=== PATIENT | female | born 1980 | race Caucasian/White ===

== ENCOUNTER 2018-03-10 19:31 | Emergency (ER) | payer MEDICAID, SELFPAY ==
[2018-03-10 19:37] VITALS: BP 90/64; PULSE 70; RESP 18; TEMP 36.4; O2SAT 100
--- NOTE | 2018-03-10 19:37 | DI.REPORT_ITS ---
SYMPTOM/DIAGNOSIS: S/P FALL, R/O ACUTE FRACTURE. LEFT WRIST: Three views. There is an osseous density on the dorsum of the wrist suspicious for a triquetral fracture. Overlying soft tissue swelling is noted. There is a question of a lucency seen through the waist of the scaphoid on the oblique view and a nondisplaced fracture cannot be excluded. Scaphoid view may be obtained for further evaluation. IMPRESSION: 1. Findings suspicious for a triquetral fracture. 2. Possible fracture through the waist of the scaphoid. Scaphoid view may br obtained for further evaluation.
--- NOTE | 2018-03-10 19:57 | ED.GENADUL ---
Disposition Clinical Impression: Triquetral fracture, Scaphoid fracture Disposition: HOME Condition: Stable Instructions: Wrist Fracture in Adults (ED), Scaphoid Fracture (ED) Additional Instructions: Rest, ice, elevate left wrist is much possible. Take tylenol or motrin as needed and directed for pain. Take the oxycodone for pain not relieved with Tylenol or Motrin. Follow-up with orthopedics in 2 weeks for reevaluation and a repeat x-ray. Return to the emergency department any worsening or new concerning symptoms. Prescriptions: Codeine/APAP 30 MG/300 MG [Tylenol W/Codeine #3 Tablet] 1 tab PO Q6H PRN #5 tab PRN Reason: Pain Referrals: Drew Patel MD [ [facility] STAFF PHYSICIAN] - Medical Decision Making - Radiology Data Radiology results: report reviewed, image reviewed Left wrist x-ray: 1. Findings highly suspicious for dorsal triquetral fracture. 2. Possible transverse lucency through the scaphoid wrist on the oblique view. - Medical Decision Making 37 old female presents with left wrist pain after fall onto left wrist from standing height. Left snuffbox tenderness with dorsal proximal hand edema and tenderness. Dose of Tylenol given Patient declined test and denies chance of . Left wrist x-ray notes dorsal triquetral fracture and possible scaphoid fracture. X-rays are reviewed with Dr. Patel and he sees the triquetral fracture but is questioning the scaphoid fracture. As patient has left snuffbox tenderness, will place a thumb spica splint and have her follow-up with orthopedics in 2 weeks for repeat x-ray. She placed on care management list to arrange for follow-up appointment. Patient has a history of previous IV drug use but states she has been clean for 10 years. She states she does occasionally take a narcotic for pain as needed. Patient is requesting something shorter than Tylenol. Dose of oxycodone given here and 5 tabs of Tylenol with codeine given for home. History of Present Illness - General Chief complaint: Orthopedic Stated complaint: BROKEN LEFT WRIST? Time Seen by Provider: 03/10/18 19:37 Source: patient Mode of arrival: ambulatory Limitations: no limitations - History of Present Illness Initial comments: Patient is a 37-year-old female presents with left wrist pain after fall from standing height onto her left wrist. She did not take anything for pain. She denies any other injury. - Related Data Codeine/APAP 30 MG/300 MG [Tylenol W/Codeine #3 Tablet] 1 tab PO Q6H PRN #5 tab 03/10/18 Allergies Allergy/AdvReac Type Severity Reaction Status Date / Time amoxicillin trihydrate Allergy Severe Hives Unverified 03/10/18 19:39 [From Augmentin] sulfamethoxazole Allergy Severe Hives Unverified 03/10/18 19:39 [From Bactrim] tree nut Allergy Anaphylaxsi Unverified 03/10/18 19:39 s azithromycin AdvReac Intermediate Stomach Unverified 03/10/18 19:39 cramps Oral contrast Allergy Swelling/Ed Uncoded 03/10/18 19:39 malou Review of Systems Constitutional: denies: chills, fever Eyes: denies: eye pain ENT: denies: ear pain, dental pain Respiratory: denies: cough, shortness of breath Cardiovascular: denies: chest pain, dyspnea on exertion Gastrointestinal: denies: abdominal pain, nausea, vomiting Genitourinary: denies: urgency, dysuria, frequency Musculoskeletal: other (L wrist injury and pain). denies: back pain Skin: denies: rash, lesions Neurological: denies: headache, weakness, numbness Past Medical History - Past Medical History Medical history: DVT Previous IV drug use Surgical history: , other (Bose Rods back surgery) Family history: diabetes - Social History Smoking status: current everyday smoker Alcohol use: heavy (Next 3 drinks during the week and 6-8 drinks on the weekends. Last drink 3 days ago) Drug use: none General Exam - General Limitations: no limitations General appearance: alert, in no apparent distress - Eye Eye exam: Present: EOMI - Respiratory Respiratory exam: Absent: respiratory distress - Cardiovascular Cardiovascular Exam: Present: regular rate - Extremities Exam Extremities exam: Present: normal capillary refill, other (Mild edema, tenderness to palpation of dorsal of proximal hand near wrist. Left snuffbox tenderness. Limited range of motion of left wrist due to pain. Left radial pulse intact.) - Neurological Exam Neurological exam: Present: alert, oriented X3 - Psychiatric Psychiatric exam: Present: normal affect - Skin Skin exam: Present: warm, dry, intact Course Vital Signs - 24 hr 03/10/18 19:37 Temperature 97.5 F L Pulse 70 Respiratory 18 Rate Blood Pressure 90/64 Pulse Oximetry 100
[2018-03-10] MEDS: Acetaminophen 325 MG TAB 650 MG PO (20:02)
--- NOTE | 2018-03-10 20:12 | DI.VRAD_ITS ---
EXAM: XR Left Wrist Complete, 3 or More Views CLINICAL HISTORY: 37 years old, female; Pain; Wrist; Left; Patient HX: Per pt: Fell out of truck onto pavement TECHNIQUE: Frontal, lateral and oblique views of the left wrist. COMPARISON: CR - RIGHT HAND COMPLETE 2015-04-30 09:59 FINDINGS: Bones/joints: Ossification measuring 8 mm x 4 mm at the dorsal surface of the carpus on the lateral examination highly suspicious for triquetral fracture. Questionable transverse lucency through the waist of the scaphoid on the oblique view. A nondisplaced fracture the scaphoid is possible. If there are clinical concerns for a scaphoid fracture then dedicated scaphoid view is suggested. No dislocation. Soft tissues: Swelling of the dorsal wrist soft tissues. No radiopaque foreign body. IMPRESSION: 1. Findings highly suspicious for dorsal triquetral fracture. 2. Possible transverse lucency through the scaphoid waist on the oblique view. If there is a clinical concern for scaphoid fracture then dedicated scaphoid view is recommended. Dictated and Authenticated by: Marco Mares MD. Ordering:YAMIL HUTCHISON MD
[2018-03-10] MEDS: oxyCODONE 5 MG TAB PO (20:40)
== END 2018-03-10 21:07 | disposition home or self-care (01) ==
PROVIDERS: Emergency Provider Physician Assistant; PCP Family Medicine
DX: S62.115A Nondisplaced fracture of triquetrum [cuneiform] bone, left wrist, initial encounter for closed fracture (principal); S62.002A Unspecified fracture of navicular [scaphoid] bone of left wrist, initial encounter for closed fracture; W01.0XXA Fall on same level from slipping, tripping and stumbling without subsequent striking against object, initial encounter; F19.21 Other psychoactive substance dependence, in remission
CPT/HCPCS: 29125; 99284; 73110; 99283; L3807

== ENCOUNTER → 2018-03-27 10:53 | Outpatient (CLI) | payer MEDICAID, SELFPAY ==
--- NOTE | 2018-03-27 10:50 | DI.REPORT_ITS ---
SYMPTOMS/DIAGNOSIS: FELL LEFT WRIST: Comparison is made with 4Aug18. Four views including navicular view were performed. There is no evidence of a scaphoid fracture. A small bony fragment is visible on the lateral view, fracture from the triquetrum. It is better seen on the previous exam. IMPRESSION: The triquetral fracture is not well seen. There is no evidence of scaphoid fracture.
== END ==
PROVIDERS: PCP Family Medicine; Visit Provider Physician Assistant
DX: S62.115D Nondisplaced fracture of triquetrum [cuneiform] bone, left wrist, subsequent encounter for fracture with routine healing (principal); W01.0XXD Fall on same level from slipping, tripping and stumbling without subsequent striking against object, subsequent encounter
CPT/HCPCS: 73110

== ENCOUNTER 2018-05-07 17:54 | Outpatient (REF) | payer MEDICAID, SELFPAY ==
[2018-05-07 19:26] LABS: Bilirubin Negative (Negative); Blood Large (Negative); Clarity Sl Cloudy; Glucose Negative (Negative); Ketones 15 mg/dL (Negative); Leukocyte Esterase Large (Negative); Nitrite Negative (Negative); Specific Gravity 1.025 (1.005-1.025); Urobilinogen 0.2 EU/dL (Up TO 0.2)
[2018-05-07 20:14] LABS: Bacteria Many HPF (Negative); C & S Indicated? Yes; Casts Negative LPF (Negative); Crystals Negative HPF (Negative); Epithelial Cells Negative HPF (Negative); Mucus Negative (Negative); Other Cells Negative (Negative); RBC >50 (0-2); WBC >50 HPF (0-5)
== END 2018-05-07 18:14 ==
LOC: NCHCN 17:54
PROVIDERS: Family Medicine; PCP Nurse Practitioner; Visit Provider Nurse Practitioner
DX: R30.0 Dysuria (principal)
CPT/HCPCS: 87077; 81003; 81015; 87086; 87186

== ENCOUNTER 2018-08-20 07:11 | Emergency (ER) | payer SELFPAY ==
[2018-08-20 07:19] VITALS: BP 121/62; PULSE 71; RESP 14; TEMP 36.6; O2SAT 99
--- NOTE | 2018-08-20 07:27 | DI.RAD_ITS ---
SYMPTOMS/DIAGNOSIS: PAIN 2ND MCP JOINT, S/P TRAUMA LEFT HAND: Comparison is made with left wrist dated . There is deformity of the triquetrum related to an old fracture. No acute fracture or dislocation is seen. There are mild degenerative changes. IMPRESSION: No acute abnormality.
--- NOTE | 2018-08-20 07:29 | W.ED.GENAD ---
Discharge Plan Disposition Patient Disposition: HOME Condition: Stable Discharge Details Chief Complaint: Laceration Clinical Impression: Laceration of hand, left Primary Care Provider: Poly Godoy ED Provider: Aravind Schumacher Home Meds and New Rx's Prescriptions: No Action No Known Home Meds RF: 0 Discharge Instructions Additional Instructions: Keep the splint on for 3 more days so the wound can heal if you have redness spreading down the hand or yellow/white discharge from the wound return to the emergency department IF you still have pain in one week follow up with your primary care provider a few times a day wash the wound with soap and water, and if it gets dirty Medical Decision Making pt states last night she was cutting wood and accidentally hit the posterior 2nd mcp joint of the left hand. Denies falling or other injuries. Came in today because she was still having pain. She has a 1cm superficial laceration of the area that she hit over the psoterior 2nd mcp joint. She has intact sensation. She has it well approximated with steri strips and given how long ago it happened due not feel stitches indicated. Given her pain will xray to eval for possible fx. HAs good rom so doubt tendon injury xray negativfe on my read and vrad read. Will d/c and advised f/u with pcp if pain continues in one week and also return if signs of infection develop Differential Diagnosis contusion, fx, laceration Imaging Data Radiologic Study: Attestation: I personally reviewed and interpreted this imaging study as follows: Imaging: X-Ray Radiologist's impression: IMPRESSION: No acute fracture or dislocation. HPI General Mode of arrival: ambulatory. Date/Time Provider Initiated Documentation: 08/20/18 07:21. Limitations to Documentation: no limitations. Information obtained by: patient. History of Present Illness 37 year old F presents to the emergency department with the chief complaint of left hand pain, described as moderate, with intensity rated at 5. Quality is described as aching, and is localized to the right and upper extremity. Patient reports no radiation. Patient started experiencing this day(s) (1) and it has been constant. No relieving factors improve symptom(s), No exacerbating factors reported . Patient notes no other symptoms.. Patient did receive the following treatments prior to arrival, none Related Data Home Medications Medication Instructions Recorded Confirmed Unknown [No Known Home Meds] 08/20/18 08/20/18 Allergies Allergy/AdvReac Type Severity Reaction Status Date / Time amoxicillin trihydrate Allergy Severe Hives Unverified 08/20/18 07:22 [From Augmentin] sulfamethoxazole Allergy Severe Hives Unverified 08/20/18 07:22 [From Bactrim] tree nut Allergy Anaphylaxsi Unverified 08/20/18 07:22 s azithromycin AdvReac Intermediate Stomach Unverified 08/20/18 07:22 cramps Oral contrast Allergy Swelling/Ed Uncoded 08/20/18 07:22 malou General Stated Complaint: Laceration FRANCIA: 3 Review of Systems Review of Systems All systems reviewed & are unremarkable except as noted in HPI and below Constitutional Denies chills and Denies fever(s) Cardiovascular Denies chest pain and Denies dyspnea Respiratory Denies dyspnea Gastrointestinal Denies abdominal pain, Denies nausea and Denies vomiting Integumentary/Breasts Denies rash [facility] Medical History Anxiety disorder Opioid dependence in remission Surgical History section Social History Smoking/Tobacco Use Status: Current every day Exam Const General: no acute distress Orientation: alert HENOK Head: normal to inspection Ears: external ears normal General nose exam: external nose normal Mouth: moist mucous membranes Eyes General: appearance normal, both eyes and all related structures Neck Neck: normal visual inspection Resp Effort & Inspection: normal respiratory effort and able to speak in complete sentences Cardio Rate: regular rate Skin General skin exam: no rashes or lesions noted Neuro General: alert and oriented x3 Extrem General: normal capillary refill Psych Mental Status: mental status grossly normal Course Vital Signs Temperature 36.6 C 08/20/18 07:19 Pulse 71 08/20/18 07:19 Respiratory Rate 14 08/20/18 07:19 Blood Pressure 121/62 08/20/18 07:19 Pulse Oximetry 99 08/20/18 07:19 Temperature 36.6 C 08/20/18 07:19 Temperature Source Temporal Artery Scan 08/20/18 07:19 Pulse 71 08/20/18 07:19 Respiratory Rate 14 08/20/18 07:19 Respiratory Effort Non-Labored 08/20/18 07:21 Blood Pressure 121/62 08/20/18 07:19 Blood Pressure Position Sitting 08/20/18 07:19 Pulse Oximetry 99 08/20/18 07:19 Oxygen Delivery Method Room Air 08/20/18 07:19 Oxygen Flow Rate 0 08/20/18 07:19 Pain Level 6 08/20/18 07:19
--- NOTE | 2018-08-20 07:57 | DI.VRAD_ITS ---
EXAM: XR Left Hand Complete, 3 or more Views EXAM DATE/TIME: 08/20/2018 7:28 AM CLINICAL HISTORY: 37 years old, female; Injury or trauma; Injury history: Pain at 2nd mcp joint S/P trauma; Initial encounter; Abrasion; Hand; Left; Additional info: Pa TECHNIQUE: XR Left hand 3 or more views. COMPARISON: CR Wrist L 03/27/2018 11:00 AM FINDINGS: Bones/joints: No acute fracture or dislocation. Mild primary osteoarthritic change at multiple articulations, including base of the thumb, multiple metacarpophalangeal and interphalangeal joints. Appears to have been healing of previously suspected triquetral fracture at the wrist. Alignment appears anatomic. No lytic or blastic lesions. Soft tissues: Unremarkable. No foreign body. IMPRESSION: No acute fracture or dislocation. Dictated and Authenticated by: Juan Carlos Murray MD. Ordering:BURT Nazario MD
== END 2018-08-20 08:03 | disposition home or self-care (01) ==
PROVIDERS: Emergency Provider Emergency Medicine; PCP Family Medicine
DX: S61.211A Laceration without foreign body of left index finger without damage to nail, initial encounter (principal); W27.0XXA Contact with workbench tool, initial encounter
CPT/HCPCS: 90471; 99284; 73130; 99283

== ENCOUNTER 2018-10-31 10:56 | Outpatient (CLI) | payer OTHER, SELFPAY ==
--- NOTE | 2018-10-31 10:54 | DI.RAD_ITS ---
SYMPTOMS/DIAGNOSIS: PAIN RIGHT SHOULDER: There is mild spurring at the inferior glenoid. There is no significant AC joint spurring. The humeral head appears normally positioned. Rods are noted in the thoracic spine. IMPRESSION: Mild degenerative changes.
== END 2018-10-31 11:16 ==
PROVIDERS: PCP Nurse Practitioner; Visit Provider Physician Assistant Surgical
DX: M25.511 Pain in right shoulder (principal); M19.011 Primary osteoarthritis, right shoulder
CPT/HCPCS: 73030

== ENCOUNTER 2018-11-04 11:48 | Emergency (ER) | payer SELFPAY ==
[2018-11-04 11:58] VITALS: BP 93/69; PULSE 93; RESP 12; TEMP 36.6; O2SAT 100
--- NOTE | 2018-11-04 12:06 | DI.CT_ITS ---
SYMPTOMS/DIAGNOSIS: FLANK PAIN, ? PYELONEPHRITIS ABDOMINAL AND PELVIC CT: CT examination of the abdomen and pelvis was performed without contrast administration. Note is made of lower thoracic/upper lumbar Bose rods in place with a spinal scoliosis. The visualized portions of the liver and spleen are unremarkable by noncontrast criteria. No urinary calcification or obstruction seen. The adrenals are unremarkable in appearance. The kidneys appear normal by noncontrast criteria. The urinary bladder appears to have a thickened wall although it is contracted which makes this determination uncertain. The appendix appears normal. No evidence of diverticulitis or bowel obstruction. SENIOR DRAFTER structures appear intact. The abdominal aorta is of normal diameter. No gross adenopathy or abdominal wall herniation. CONCLUSION: Urinary bladder wall thickening which appears somewhat irregular. Clinical correlation requested regarding the possibility of cystitis.
--- NOTE | 2018-11-04 12:10 | ED.GENADUL_ITS ---
Discharge Plan Disposition Patient Disposition: HOME Condition: Stable Discharge Details Chief Complaint: FlankPain Clinical Impression: Pyelonephritis Primary Care Provider: Esthela Khalil ED Provider: Michelle Wagner Home Meds and New Rx's Prescriptions: New cephalexin [Keflex] 500 mg capsule 500 mg PO BID 10 Days Qty: 20 RF: 0 Continued ibuprofen 200 mg tablet 200 mg PO TID-QID PRNRF: 0 Discharge Instructions Instructions: Urinary Tract Infection in Women (ED), Kidney Infection (ED) Additional Instructions: Take the antibiotics until finished. Alternate Tylenol and Motrin as needed and directed for pain. Follow-up with primary care doctor in 2 days for reevaluation. Return immediately to the emergency department with any worsening or new concerning symptoms. Discharge Data Discharge Date/Time-TO BE ENTERED AT DEPARTURE: 11/04/18 14:05 Discharge Physician: Michelle Wagner Medical Decision Making 37-year-old female who presents with dysuria, urinary frequency and urgency for the past 4 days and left-sided flank pain, lower abdominal pain, and sweats since yesterday. She denies any known fever, nausea or vomiting. Blood pressure 93/69, heart rate 93, remainder vitals within normal limits. Patient appears nontoxic. No CVA tenderness. Abdomen soft nontender. Diagnosis includes UTI, pyelonephritis, kidney stone. Will place an IV, bolus IV fluids, labs, urinalysis and CT renal colic. Patient is declining any pain medication. Urine test negative. 1315 --labs and imaging reviewed. White blood cell count 16. Normal electrolytes. Urinalysis notes greater than 50 WBCs and RBCs, large leukocyte esterase. CT notes thickening of the urinary bladder consistent with cystitis, and kidney and ureters appear unremarkable with no hydronephrosis. There is consistent with likely pyelonephritis. Patient is allergic to Bactrim which she states causes near anaphylaxis-like symptoms. She states she has tolerated amoxicillin in the past but that Augmentin causes more GI upset rather than any true allergic reaction. She states she currently has tendinitis and would not 1 fluoroquinolones with risk of tendon rupture. As she has tolerated amoxicillin in the past, will treat with Keflex. 1 dose given here as well as dose for tonight and prescription for home. She is instructed to follow-up with primary care doctor this week for reevaluation and to return here if worse. Medical Records Medical records reviewed: Yes I reviewed the patient's medical records. Imaging Data Radiologic Study: Radiologist's impression: CT Abdomen and Pelvis Without Contrast EXAM DATE/TIME: 11/04/2018 12:09 PM FINDINGS: Lower thorax: No acute findings. ABDOMEN: Liver: Unremarkable. No mass. Gallbladder and bile ducts: Normal. No calcified stones. No ductal dilation. Pancreas: Unremarkable. No ductal dilation. Spleen: Unremarkable. No splenomegaly. Adrenals: Normal. No mass. Kidneys and ureters: Unremarkable. No stones. No hydronephrosis. Stomach and bowel: Unremarkable. No obstruction. No mucosal thickening. Appendix: No evidence of appendicitis. PELVIS: Bladder: There is irregular wall thickening of the urinary bladder. This may be secondary to underdistention as well as cystitis or other urinary bladder wall abnormality. No urinary bladder calculus. Reproductive: Unremarkable as visualized. ABDOMEN and PELVIS: Intraperitoneal space: No free air. No significant fluid collection. Bones/joints: Scoliosis of the lumbar spine, apex to the left, centered at L2-L3, but there is severe degenerative disc disease. Posterior armand instrumentation of the lower thoracic and upper lumbar spine, extending to the L2 vertebral level results in artifact which slightly limits this examination. Soft tissues: Unremarkable. Vasculature: Unremarkable. No abdominal aortic aneurysm. Lymph nodes: No enlarged lymph nodes. IMPRESSION: Irregular wall thickening of the urinary bladder. Differential diagnosis includes nondistended urinary bladder, cystitis, as well as other urinary bladder wall abnormalities. Lab Data Lab results reviewed: Yes I reviewed the patient's lab results. HPI General Mode of arrival: ambulatory . Date/Time Provider Initiated Documentation: 11/04/18 12:05 . Limitations to Documentation: no limitations . Information obtained by: patient . HPI Narrative: Pt is a 37-year-old female who presents with dysuria, urinary frequency and urgency for the past 4 days and left-sided flank pain, lower abdominal pain, and sweats since yesterday. She denies any known fever, nausea or vomiting. She has not taken anything for pain because she does not like to take pain meds. She called her pcp for an antibiotics but was advised to come here for evaluation. Related Data Home Medications Medication Instructions Recorded Confirmed ibuprofen 200 mg tablet 200 mg PO TID-QID PRN 10/31/18 11/04/18 cephalexin [Keflex] 500 mg PO BID 10 Days #20 cap 11/04/18 Previous Rx's Medication Instructions Recorded cephalexin [Keflex] 500 mg PO BID 10 Days #20 cap 11/04/18 Allergies Allergy/AdvReac Type Severity Reaction Status Date / Time azithromycin [From Zithromax] Allergy Severe Hives Unverified 11/04/18 12:00 sulfamethoxazole Allergy Severe Hives Unverified 11/04/18 12:00 [From Bactrim] trimethoprim [From Bactrim] Allergy Severe Hives Unverified 11/04/18 12:00 amoxicillin [From Augmentin] AdvReac Severe Hives Unverified 11/04/18 12:00 clavulanic acid AdvReac Severe Hives Unverified 11/04/18 12:00 [From Augmentin] General Stated Complaint: FlankPain FRANCIA: 3 Review of Systems Review of Systems All systems reviewed & are unremarkable except as noted in HPI and below Constitutional Reports as per HPI, Reports chills and Denies fever(s) Eyes Denies blurry vision ENT Denies dizziness, Denies sore throat and Denies throat swelling Cardiovascular Denies chest pain and Denies dyspnea Respiratory Denies cough and Denies dyspnea Gastrointestinal Denies abdominal pain, Denies diarrhea and Denies vomiting Genitourinary Denies hematuria, Reports urinary frequency, Reports dysuria, Reports flank pain, Reports urinary hesitancy and Reports urinary urgency Musculoskeletal Denies numbness Integumentary/Breasts Denies lesions and Denies rash Neurologic Denies dizziness, Denies focal weakness and Denies numbness Allergic/Immunologic Denies throat swelling [facility] Medical History Cholelithiasis (Acute) Scoliosis (Acute) Wrist fracture, left (Acute) Surgical History History of back surgery (Acute) Social History Smoking/Tobacco Use Status: Current every day Tobacco: How many years used: 20 Quit status: considering quitting Alcohol Intake: current Alcohol Intake frequency: a few times a week Substance use type: marijuana What is your relationship status?: Panel score (0-1 are the most socially isolated patients): 1 Seatbelt use: always Do you feel safe at home: Yes Do you feel safe in your relationship?: Yes Exam Const General: cooperative, healthy appearing and no acute distress HENMT Head: normal to inspection Face and sinus: normal facial exam Eyes General: appearance normal, both eyes and all related structures Neck Neck: normal visual inspection and No submandibular swelling Lymphatic: no lymphadenopathy noted Chest Chest: normal inspection of the chest and no tenderness Resp Effort & Inspection: normal respiratory effort and able to speak in complete sentences Auscultation: clear to auscultation bilaterally Cardio Rate: regular rate Rhythm: regular rhythm GI Inspection: normal to inspection Palpation: soft, not firm, not rigid and nontender Auscultation: normal bowel sounds Back/Spine/Pelvis Back: no CVA tenderness Thoracic/Lumbar Spine: thoracic and lumbar spine normal to inspection Skin General skin exam: no rashes or lesions noted Neuro General: alert, awake and oriented x3 Cognition: normal cognition Speech: speech normal Motor: muscle tone normal throughout Sensory Exam: no sensory deficits noted Extrem General: normal to inspection, full ROM and no edema Psych Appearance: grossly normal Mental Status: mental status grossly normal Speech and Movement: speech and movement normal Affect: normal affect Course Vital Signs Temperature 97.9 F 11/04/18 11:58 Pulse 93 H 11/04/18 11:58 Respiratory Rate 12 11/04/18 11:58 Blood Pressure 93/69 L 11/04/18 11:58 Pulse Oximetry 100 11/04/18 11:58 Temperature 97.9 F 11/04/18 11:58 Temperature Source Temporal Artery Scan 11/04/18 11:58 Pulse 93 H 11/04/18 11:58 Respiratory Rate 12 11/04/18 11:58 Respiratory Effort Non-Labored 11/04/18 12:01 Blood Pressure 93/69 L 11/04/18 11:58 Pulse Oximetry 100 11/04/18 11:58 Oxygen Delivery Method Room Air 11/04/18 11:58 Oxygen Flow Rate 0 11/04/18 11:58 Pain Level 6 11/04/18 12:01
[2018-11-04 12:22] LABS: Bilirubin Negative (Negative); Blood Moderate (Negative); Clarity Clear; Glucose Negative (Negative); Ketones Negative (Negative); Leukocyte Esterase Large (Negative); Nitrite Negative (Negative); Specific Gravity 1.015 (1.005-1.025)
[2018-11-04 12:28] LABS: Abs Immature Grans 0.04 k/cumm (0.0-0.09); Absolute Basophil Count 0.03 k/cumm (0.0-0.2); Absolute Lymphocyte Count 1.52 k/cumm (1.2-3.4); Absolute Monocyte Count 1.66 k/cumm (0.11-0.7); Basophils % 0.2; Eosinophils % 0.2; HCT 45.3 % (36.0-46.0); HGB 15.6 g/dL (12.0-15.5); Immature Grans % 0.2; Lymphocytes % 9.4; Mean Corp. HGB Concentration 34.4 g/dL (32.0-36.0); Mean Corpuscular Hemoglobin 32.7 pg (27.0-33.0); Mean Platelet Volume 8.8 fL (8.0-11.0); Monocytes % 10.3; Neutrophils % 79.7; Platelet Count 257 x1000/uL (130-400); RBC 4.77 m/cumm (4.00-5.20); White Blood Cell Count 16.16 k/cumm (4.4-10.8)
[2018-11-04] MEDS: Normal Saline 1,000 ML 1000 ML IV (12:30)
[2018-11-04 12:34] LABS: Absolute Eosinophil Count 0.03 k/cumm (0.0-0.7); Absolute Neutrophil Count 12.88 k/cumm (1.2-6.7)
[2018-11-04 12:34] LABS: Bacteria Rare HPF (Negative); Crystals Negative HPF (Negative); Epithelial Cells Rare HPF (Negative); Mucus Trace (Negative); RBC >50 (0-2); WBC >50 HPF (0-5)
[2018-11-04 12:35] LABS: C & S Indicated? Yes; Casts Negative LPF (Negative)
[2018-11-04 12:42] LABS: ALT 17 U/L (12-78); AST 10 U/L (15-37); Albumin 3.7 g/dL (3.4-5.0); Alkaline Phosphatase 65 U/L (46-116); Anion Gap 8.4 mmol/L (3-11); BUN 11 mg/dL (7-18); Bilirubin, Total 1.5 mg/dL (0.2-1.0); CO2 28.6 mmol/L (21.0-32.0); CREATININE 0.86 mg/dL (0.55-1.02); Calcium 8.9 mg/dL (8.5-10.1); Chloride 99 mmol/L (98-107); Glucose 118 mg/dL (70-100); Potassium 4.1 mmol/L (3.5-5.1); Sodium 136 mmol/L (136-145); Total Protein 7.6 g/dL (6.4-8.2)
[2018-11-04 12:48] LABS: Diff Comment Diff Reviewed; RBC Morphology Normal
--- NOTE | 2018-11-04 13:16 | DI.VRAD_ITS ---
EXAM: CT Abdomen and Pelvis Without Contrast EXAM DATE/TIME: 11/04/2018 12:09 PM CLINICAL HISTORY: 37 years old, female; Pain; Abdominal pain; Flank; Other: Flank pain; Patient HX: Flank pain, R/O pyelonephritis. TECHNIQUE: Imaging protocol: Axial computed tomography images of the abdomen and pelvis without contrast. Coronal and sagittal reformatted images were created and reviewed. Radiation optimization: All CT scans at this facility use at least one of these dose optimization techniques: automated exposure control; mA and/or kV adjustment per patient size (includes targeted exams where dose is matched to clinical indication); or iterative reconstruction. COMPARISON: No relevant prior studies available. FINDINGS: Lower thorax: No acute findings. ABDOMEN: Liver: Unremarkable. No mass. Gallbladder and bile ducts: Normal. No calcified stones. No ductal dilation. Pancreas: Unremarkable. No ductal dilation. Spleen: Unremarkable. No splenomegaly. Adrenals: Normal. No mass. Kidneys and ureters: Unremarkable. No stones. No hydronephrosis. Stomach and bowel: Unremarkable. No obstruction. No mucosal thickening. Appendix: No evidence of appendicitis. PELVIS: Bladder: There is irregular wall thickening of the urinary bladder. This may be secondary to underdistention as well as cystitis or other urinary bladder wall abnormality. No urinary bladder calculus. Reproductive: Unremarkable as visualized. ABDOMEN and PELVIS: Intraperitoneal space: No free air. No significant fluid collection. Bones/joints: Scoliosis of the lumbar spine, apex to the left, centered at L2-L3, but there is severe degenerative disc disease. Posterior armand instrumentation of the lower thoracic and upper lumbar spine, extending to the L2 vertebral level results in artifact which slightly limits this examination. Soft tissues: Unremarkable. Vasculature: Unremarkable. No abdominal aortic aneurysm. Lymph nodes: No enlarged lymph nodes. IMPRESSION: Irregular wall thickening of the urinary bladder. Differential diagnosis includes nondistended urinary bladder, cystitis, as well as other urinary bladder wall abnormalities. Dictated and Authenticated by: Marco Mares MD. Ordering:YAMIL Martinez MD
[2018-11-04] MEDS: Cephalexin 500 MG CAP PO ×2 (13:43→14:02)
[2018-11-04 13:59] VITALS: BP 109/62; PULSE 73; RESP 16; TEMP 36.8; O2SAT 100
== END 2018-11-04 14:05 | disposition home or self-care (01) ==
LOC: ER 13:41
PROVIDERS: Emergency Provider Physician Assistant; PCP Nurse Practitioner
DX: N10 Acute pyelonephritis (principal); B96.20 Unspecified Escherichia coli [E. coli] as the cause of diseases classified elsewhere
CPT/HCPCS: 36415; 80053; 87077; 96360; 99284; 74176; 81003; 81015; 85025; 87086; 87186

== ENCOUNTER 2019-01-18 09:29 | Outpatient (REF) | payer SELFPAY | END 2019-01-18 09:49 | LOC: NCHCN 09:29 | PROVIDERS: PCP Nurse Practitioner; Visit Provider Nurse Practitioner | DX: N39.0 Urinary tract infection, site not specified (principal) | CPT/HCPCS: 87086 ==

== ENCOUNTER 2019-01-28 21:19 | Emergency (ER) | payer MEDICAID, SELFPAY ==
[2019-01-28 21:23] VITALS: BP 123/77; PULSE 112; RESP 28; TEMP 36.3; O2SAT 100
[2019-01-28 21:34] VITALS: RESP 28
[2019-01-28] MEDS: Albuterol/Ipratropium 3 ML UPD VIAL (21:34)
[2019-01-28] MEDS: predniSONE 20 MG TAB 60 MG PO (21:53)
[2019-01-28] MEDS: Albuterol/Ipratropium 3 ML UPD VIAL UPD (21:54)
--- NOTE | 2019-01-28 21:56 | DI.RAD_ITS ---
SYMPTOM/DIAGNOSIS: COUGH PA AND LATERAL CHEST: Comparison is made with 20 January 2017. The heart size is normal. There are mildly increased interstitial markings bilaterally which appear unchanged. No superimposed acute infiltrate, effusion or pulmonary edema seen. Rods are again noted in the spine. IMPRESSION: No acute abnormality
--- NOTE | 2019-01-28 21:56 | W.ED.GENAD ---
Discharge Plan Disposition Patient Disposition: HOME Condition: Good Discharge Details Chief Complaint: SOB Clinical Impression: Exacerbation of reactive airway disease Primary Care Provider: Esthela Khalil ED Provider: Jermain Costa Home Meds and New Rx's Prescriptions: New prednisone 50 MG tablet 50 mg PO DAILY Qty: 5 RF: 0 doxycycline hyclate 100 mg tablet 100 mg PO BID Qty: 20 RF: 0 No Action ibuprofen 200 mg tablet 200 mg PO TID-QID PRNRF: 0 Hold Instructions: None diclofenac sodium 1 % gel 2 gm TP QID PRN (Reason: shoulder pain) Qty: 100 RF: 1 tramadol 50 mg tablet 50 mg PO QHS RF: 0 Discharge Instructions Instructions: Reactive Airways Disease (ED) Additional Instructions: Your chest x-ray shows concerns for pneumonia. I feel that this is in conjunction with reactive airway disease from your exposure to mold and pollen. Please take your inhaler, 2 puffs every 6 hours for the next 3 to 4 days. Please take the steroid as directed as well as the doxycycline antibiotic. If you notice any worsening of your symptoms, or any new symptoms such as vomiting, diarrhea, fever, chills, shortness of breath, chest pain, numbness, weakness, or fainting , please return immediately to the emergency department for reevaluation. Please follow up with your primary care provider as soon as possible for reassessment and reevaluation. As always, it was a pleasure participating in your medical care today. Referrals: Esthela Khalil [Primary Care Provider] - Medical Decision Making This is a 38-year-old female with past medical history of reactive airway disease who presents today for evaluation of cough and shortness of breath. 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 Her cough worsened, and she felt more short of breath. She does continue to smoke a pack per day. Physical exam demonstrates mild wheezes in the bases, no significant rhonchi or rales. No calf tenderness. No hypoxemia. Patient does have a history of DVT in the past, but this was while she was , she denies any red flags of long trips or surgeries or procedures recently. Patient was given a DuoNeb here in the ED, and on reassessment after first DuoNeb she states that she has had a greater than 50% improvement of her symptoms. We will get a chest x-ray for further evaluation. I did discuss further laboratory blood draws, D-dimers and potential CT scans, however the patient is making it exquisitely clear that she does not want any additional work-up at this time as she feels so much better with the breathing treatments. She will allow an x-ray for further evaluation. We will continue with duo nebs, give a dose of steroids for notable reactive airway disease, and reassess. At this time clinically signs and symptoms appear inconsistent with massive PE, ACS, or severe pneumonia requiring hospitalization. 11 PM Patient feels much better after breathing treatment. Oxygen saturation remains normal, respiratory rate is improved to 20, no evidence of hypoxemia or tachycardia or tachypnea. Chest x-ray results shows no significant focal consolidation but notable persistent coarsening of the interstitial markings. I do feel that there is a small amount of consolidation noted in the right midlung field. The patient's cough, and symptoms I feel that there is a combination of reactive airway disease in conjunction with mild infectious etiology. We will start the patient on doxycycline, steroids, and albuterol inhaler for home use with spacer. Additionally we discussed the importance of sunscreen protection while she is outside working. We discussed red flags which return, the importance of smoking cessation, the importance of follow-up with her PCP. I have extensively reviewed the treatment plan and discharge instructions with the patient and their family. I have addressed all patient concerns at this time. The patient and family was made aware of what symptoms to monitor for that would warrant a return to the emergency department. Discussed the plan with the patient and family, they demonstrate verbal understanding and agreement with our assessment and plan at this time. FINDINGS: Lungs: Lungs are adequately inflated and symmetric. There is diffuse coarsening of interstitial markings, similar to prior, without focal consolidation or pulmonary edema. Pleural space: No pleural effusion. No pneumothorax. Heart/Mediastinum: Cardiomediastinal contours within normal limits. Bones/joints: Extensive postsurgical changes of the spine. There is dextroconvex curvature of the thoracolumbar spine. No acute osseous finding. Soft tissues: No focal soft tissue abnormailty. IMPRESSION: Persistent coarsening of the interstitial markings without focal consolidation or pulmonary edema. Dictated and Authenticated by: Roberto Carlos Morin MD. Ordering:LENIN Aly MD HPI General Date/Time Provider Initiated Documentation: 01/28/19 21:50. HPI Narrative: This is a 38-year-old female with a past medical history of chronic tobacco abuse, reactive airway disease who presents today for evaluation of cough and congestion shortness of breath. 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 She denies any hemoptysis, chest pain, pleuritic chest pain, numbness tingling or weakness. She denies any fever or chills. Of note she just finished taking Keflex for UTI. She does have a history of a DVT, however this was during and years ago, and she is no longer on anticoagulation. She denies any recent long trips, surgeries, or procedures. She denies any calf swelling tenderness or pain. She denies any headache or neck pain. She has no other complaints at this time. No other modifying factors. Related Data Home Medications Medication Instructions Recorded Confirmed ibuprofen 200 mg tablet 200 mg PO TID-QID PRN 10/31/18 01/28/19 tramadol 50 mg tablet 50 mg PO QHS tab 12/26/18 01/28/19 diclofenac 1 % topical gel 2 gm TP QID PRN #100 gm 01/21/19 01/28/19 doxycycline hyclate 100 mg PO BID #20 tab 01/28/19 prednisone 50 mg PO DAILY #5 tab 01/28/19 Previous Rx's Medication Instructions Recorded diclofenac 1 % topical gel 2 gm TP QID PRN #100 gm 01/21/19 doxycycline hyclate 100 mg PO BID #20 tab 01/28/19 prednisone 50 mg PO DAILY #5 tab 01/28/19 Allergies Allergy/AdvReac Type Severity Reaction Status Date / Time amoxicillin trihydrate Allergy Severe Hives Verified 01/28/19 21:27 [From Augmentin] sulfamethoxazole Allergy Severe Hives Verified 06/24/19 21:27 [From Bactrim] trimethoprim [From Bactrim] Allergy Severe Hives Verified 01/28/19 21:27 tree nut Allergy Anaphylaxsi Verified 01/28/19 21:27 s amoxicillin [From Augmentin] AdvReac Severe Hives Verified 01/28/19 21:27 clavulanic acid AdvReac Severe Hives Verified 01/28/19 21:27 [From Augmentin] azithromycin AdvReac Intermediate Stomach Verified 01/28/19 21:27 cramps Oral contrast Allergy Swelling/Ed Uncoded 01/28/19 21:27 malou General Stated Complaint: SOB FRANCIA: 3 Review of Systems Review of Systems All systems reviewed & are unremarkable except as noted in HPI and below PFSH Social History Smoking/Tobacco Use Status: Current every day Tobacco: How many years used: 20 Quit status: considering quitting Alcohol Intake: current Alcohol Intake frequency: a few times a week Drug use: Current Sobriety Substance use type: marijuana What is your relationship status?: Panel score (0-1 are the most socially isolated patients): 1 Seatbelt use: always Do you feel safe at home: Yes Do you feel safe in your relationship?: Yes Exam Narrative Exam Narrative: 1.Const: Well-nourished, Well-developed, appearing stated age 2.Eyes: PERRL, no conjunctival injection, and symmetrical lids. 3.ENT: Atraumatic external nose and ears. Moist MM. Neck: Symmetric, trachea midline, No thyromegaly. 4.CVS: +S1/S2, No murmurs or gallops. Peripheral pulses 2+ and equal in all extremities. Brisk capillary refill in all extremities. 5.RESP: Unlabored respiratory effort. Mild wheezes, no significant rales or rhonchi. 6.GI: Soft, Nontender/Nondistended, No hepatosplenomegaly. No guarding or rebound. 7.MSK: Normocephalic/Atraumatic, Extremities w/o deformity or ttp No cyanosis or clubbing, Normal movement of all extremities, no significant calf tenderness 8.Skin: Warm, Dry. No rashes or lesions. 9.Neuro: virtual recruiter II-XII grossly intact. Sensation grossly intact, no focal neurologic deficits. 10.Psych: (AAO) x3. Appropriate mood and affect Course Vital Signs Temperature 36.3 C L 01/28/19 21:23 Pulse 112 H 01/28/19 21:23 Respiratory Rate 28 H 01/28/19 21:23 Blood Pressure 123/77 01/28/19 21:23 Pulse Oximetry 100 01/28/19 21:23 Temperature 36.3 C L 01/28/19 21:23 Temperature Source Skin 01/28/19 21:23 Pulse 112 H 01/28/19 21:23 Respiratory Rate 28 H 01/28/19 21:34 Respiratory Effort 01/28/19 21:34 Respiratory Depth Normal 01/28/19 21:34 Respiratory Pattern Tachypnea 01/28/19 21:34 Blood Pressure 123/77 01/28/19 21:23 Blood Pressure Position Sitting 01/28/19 21:23 Pulse Oximetry 100 01/28/19 21:23 Oxygen Delivery Method Room Air 01/28/19 21:23 Oxygen Flow Rate 0 01/28/19 21:23
--- NOTE | 2019-01-28 22:55 | DI.VRAD_ITS ---
EXAM: XR Chest, 2 Views EXAM DATE/TIME: 01/28/2019 9:57 PM CLINICAL HISTORY: 38 years old, female; Cough; Prior surgery TECHNIQUE: Imaging protocol: XR of the chest, 2 views. COMPARISON: CR CHEST 2 VIEWS PA,LAT 01/20/2017 2:11 PM FINDINGS: Lungs: Lungs are adequately inflated and symmetric. There is diffuse coarsening of interstitial markings, similar to prior, without focal consolidation or pulmonary edema. Pleural space: No pleural effusion. No pneumothorax. Heart/Mediastinum: Cardiomediastinal contours within normal limits. Bones/joints: Extensive postsurgical changes of the spine. There is dextroconvex curvature of the thoracolumbar spine. No acute osseous finding. Soft tissues: No focal soft tissue abnormailty. IMPRESSION: Persistent coarsening of the interstitial markings without focal consolidation or pulmonary edema. Dictated and Authenticated by: Roberto Carlos Morin MD. Ordering:LENIN Aly MD
[2019-01-28 23:01] VITALS: PULSE 64; RESP 20; O2SAT 99
[2019-01-28] MEDS: Albuterol HFA 8 GM 60 PUFF INH IH (23:02)
== END 2019-01-28 23:01 | disposition home or self-care (01) ==
PROVIDERS: Emergency Provider Student in an Organized Health Care Education/Training Program; PCP Nurse Practitioner
DX: J45.901 Unspecified asthma with (acute) exacerbation (principal); F17.210 Nicotine dependence, cigarettes, uncomplicated
CPT/HCPCS: 94640; 99283; 71046; J7512; J7620

== ENCOUNTER 2019-01-31 09:08 | Outpatient (REF) | payer MEDICAID, SELFPAY | END 2019-01-31 09:28 | LOC: NCHCN 09:08 | PROVIDERS: PCP Nurse Practitioner; Visit Provider Nurse Practitioner | DX: N76.0 Acute vaginitis (principal); N39.0 Urinary tract infection, site not specified | CPT/HCPCS: 87480; 87510; 87660 ==

== ENCOUNTER 2019-07-31 16:04 | Emergency (ER) | payer MEDICAID, SELFPAY ==
[2019-07-31 16:07] VITALS: BP 118/77; PULSE 104; RESP 18; TEMP 36.6; O2SAT 100
--- NOTE | 2019-07-31 16:18 | ED.GENADUL_ITS ---
Discharge Plan Disposition Patient Disposition: HOME Condition: Improving Discharge Details Chief Complaint: Nausea/Vomit/Diar Clinical Impression: Gastroenteritis Primary Care Provider: Esthela Khalil ED Provider: Dakota Curry Home Meds and New Rx's Prescriptions: No Action No Known Home Meds RF: 0 Discharge Instructions Instructions: Gastroenteritis (ED) Additional Instructions: May use Zofran/ondansetron as needed for persistent nausea. Continue small, frequent sips of fluids to maintain hydration. Return if develop high fever, persistent vomiting, or any other acute concerns. Medical Decision Making 38-year-old female presents from home complaining of 3 days of generalized nausea and malaise, followed by 24 hours now frequent episodes of nonbilious, nonbloody emesis and loose, watery stool. She feels weak and lightheaded but has not had syncope. She has not had significant abdominal pain. No recent tr genny or known sick contacts. Patient is mildly tachycardic with a pulse of 104, she is afebrile blood pressure is 118/77. Sodium 137, potassium 4.2, chloride 101, bicarb 23, anion gap 12, BUN 13, creatinine 0.9, glucose within normal limits, LFTs unremarkable. UA with SG 1.02, + ketones. Patient improving with fluids. She is able to take sebastian zaid by mouth. Will offer her ondansetron for home. She is improving. No indication for further work-up at this time. Patient understands return precautions to the ED. HPI General Mode of arrival: ambulatory . Date/Time Provider Initiated Documentation: 07/31/19 16:09 . Limitations to Documentation: no limitations . Information obtained by: patient and family . History of Present Illness 38 year old F presents to the emergency department with the chief complaint of Nausea, vomiting, loose watery stool for 24 hours, described as moderate, Quality is described as dull and constant, and is localized to the abdomen. Patient reports no radiation. Patient started experiencing this hour(s) and it has been intermittent. Eating worsens symptoms . Patient notes fever/chills, loss of appetite, malaise, nausea/vomiting and weakness; denies confusion, chest pain, headaches and shortness of breath. Patient did receive the following treatments prior to arrival, none Related Data Home Medications Medication Instructions Recorded Confirmed Unknown [No Known Home Meds] 07/31/19 07/31/19 Allergies Allergy/AdvReac Type Severity Reaction Status Date / Time amoxicillin trihydrate Allergy Severe Hives Verified 07/31/19 16:09 [From Augmentin] sulfamethoxazole Allergy Severe Hives Verified 07/31/19 16:09 [From Bactrim] trimethoprim [From Bactrim] Allergy Severe Hives Verified 07/31/19 16:09 tree nut Allergy Anaphylaxsi Verified 07/31/19 16:09 s amoxicillin [From Augmentin] AdvReac Severe Hives Verified 07/31/19 16:09 clavulanic acid AdvReac Severe Hives Verified 07/31/19 16:09 [From Augmentin] azithromycin AdvReac Intermediate Stomach Verified 07/31/19 16:09 cramps Oral contrast Allergy Swelling/Ed Uncoded 07/31/19 16:09 malou General Stated Complaint: Nausea/Vomit/Diar FRANCIA: 3 Review of Systems Narrative: 8 systems reviewed and otherwise negative FORMERLY [facility], 1928–1983 Medical History Anxiety disorder Cholelithiasis (Resolved) Opioid dependence in remission Scoliosis (Inactive) Wrist fracture, left (Inactive) Surgical History section x2 History of back surgery (Resolved) Social History Smoking/Tobacco Use Status: Current every day Tobacco: How many years used: 20 Quit status: considering quitting Alcohol Intake: current Alcohol Intake frequency: a few times a week Drug use: Current Sobriety Substance use type: marijuana What is your relationship status?: Panel score (0-1 are the most socially isolated patients): 1 Seatbelt use: always Do you feel safe at home: Yes Do you feel safe in your relationship?: Yes Exam Narrative Exam Narrative: GEN: awake, alert, oriented 3. Pleasant, well groomed, interactive. HEAD: Normocephalic, atraumatic ENT: Mucous membranes dry, oropharynx unremarkable, External ear exam unremarkable EYES: PERRL, EOMI NECK: Full ROM, no REKHA, no menigismus CHEST/RESP: Nontender, clear to auscultation bilateral, no wheeze/rhonchi/rales CARDIOVASCULAR: RRR, no murmur, rub thelma. 2+ Rad pulse bilateral ABDOMEN: Soft, nontender, no mass. +Bowel sounds EXT: Full ROM, no edema, no rash Neuro: Grossly normal neurologic exam, conversant, interactive. Psych: Speech fluent, thoughts congruent, affect normal Course Vital Signs Vital signs: Vital Signs Temperature 36.6 C 07/31/19 16:07 Pulse 104 H 07/31/19 16:07 Respiratory Rate 18 07/31/19 16:07 Blood Pressure 118/77 07/31/19 16:07 Pulse Oximetry 100 07/31/19 16:07 Temperature 36.6 C 07/31/19 16:07 Temperature Source Temporal Artery Scan 07/31/19 16:07 Pulse 104 H 07/31/19 16:07 Respiratory Rate 18 07/31/19 16:07 Respiratory Effort Non-Labored 07/31/19 16:07 Blood Pressure 118/77 07/31/19 16:07 Blood Pressure Position Sitting 07/31/19 16:07 Pulse Oximetry 100 07/31/19 16:07 Oxygen Delivery Method Room Air 07/31/19 16:07 Oxygen Flow Rate 0 07/31/19 16:07 Pain Level 2 07/31/19 16:07
[2019-07-31] MEDS: Ondansetron 4 MG/2 ML VIAL IVP (16:29)
[2019-07-31] MEDS: Normal Saline 1,000 ML 1000 ML IV ×2 (16:30)
[2019-07-31 16:31] LABS: Abs Immature Grans 0.03 k/cumm (0.0-0.09); Absolute Basophil Count 0.01 k/cumm (0.0-0.2); Absolute Eosinophil Count 0.01 k/cumm (0.0-0.7); Absolute Lymphocyte Count 0.43 k/cumm (1.2-3.4); Absolute Neutrophil Count 12.49 k/cumm (1.2-6.7); Basophils % 0.1; Eosinophils % 0.1; HCT 47.2 % (36.0-46.0); HGB 16.2 g/dL (12.0-15.5); Immature Grans % 0.2; Lymphocytes % 3.2; Mean Corp. HGB Concentration 34.3 g/dL (32.0-36.0); Mean Corpuscular Hemoglobin 31.8 pg (27.0-33.0); Mean Corpuscular Volume 92.7 fL (80-95); Mean Platelet Volume 8.5 fL (8.0-11.0); Monocytes % 3.7; Neutrophils % 92.7; Platelet Count 331 x1000/uL (130-400); RBC 5.09 m/cumm (4.00-5.20); RBC Distribution Width 12.5 % (11.7-14.6); White Blood Cell Count 13.47 k/cumm (4.4-10.8)
[2019-07-31 16:44] LABS: ALT 22 U/L (14-59); AST 22 U/L (15-37); Albumin 4.1 g/dL (3.4-5.0); Alkaline Phosphatase 63 U/L (46-116); Anion Gap 12.9 mmol/L (3-11); BUN 13 mg/dL (7-18); CO2 23.1 mmol/L (21.0-32.0); CREATININE 0.97 mg/dL (0.55-1.02); Calcium 8.7 mg/dL (8.5-10.1); Chloride 101 mmol/L (98-107); Glucose 128 mg/dL (74-106); Potassium 4.2 mmol/L (3.5-5.1); Sodium 137 mmol/L (136-145); Total Protein 8.1 g/dL (6.4-8.2)
[2019-07-31 18:12] VITALS: PULSE 88; RESP 16; O2SAT 98
[2019-07-31 18:23] LABS: Bilirubin Negative (Negative); Blood Trace-intact (Negative); Clarity Clear (Clear); Glucose Negative (Negative); Ketones Trace mg/dL (Negative); Leukocyte Esterase Negative (Negative); Nitrite Negative (Negative); Urobilinogen 0.2 EU/dL (Up TO 0.2)
[2019-07-31 18:28] LABS: Bacteria Rare HPF (Negative); C & S Indicated? No; Casts 5-10 Hyaline LPF (Negative); Crystals Negative HPF (Negative); Epithelial Cells Moderate HPF (Negative); Mucus Moderate (Negative); RBC 0-2 HPF (0-2); WBC 0-2 HPF (0-5)
[2019-07-31] MEDS: Ondansetron O.D.T. 4 MG TABEF, 3 TABS/BTL PO (18:42)
== END 2019-07-31 18:42 | disposition home or self-care (01) ==
PROVIDERS: Emergency Provider Emergency Medicine; PCP Nurse Practitioner
DX: K52.9 Noninfective gastroenteritis and colitis, unspecified (principal)
CPT/HCPCS: 36415; 80053; 81025; 96361; 96375; 99284; 81003; 81015; 85025; J2405

== ENCOUNTER 2019-08-26 09:42 | Outpatient (CLI) | payer MEDICAID, SELFPAY ==
[2019-08-27 14:28] LABS: Antithrombin Activity, Plasma 90 % (80 - 130)
[2019-08-28 12:18] LABS: Protein C, Functional 114 % (71-199)
[2019-08-28 12:24] LABS: Protein S, Functional 115 % (64-147)
[2019-08-28 17:28] LABS: Methylenetetrahydrofol Reduc M Negative (Negative); Prothrombin G20210A Mutation Negative (Negative)
== END 2019-08-26 10:02 ==
PROVIDERS: PCP Nurse Practitioner; Visit Provider Obstetrics & Gynecology
DX: Z86.718 Personal history of other venous thrombosis and embolism (principal)
CPT/HCPCS: 36415; 81240; 85300; 85306; 81291; 85303

== ENCOUNTER 2019-08-26 10:40 | Outpatient (REF) | payer MEDICAID, SELFPAY ==
--- NOTE | 2019-08-26 09:00 | PAPFT_PTH ---
PATIENT: Yana Duron LOC: [facility] U#:[id number] AGE/SX: 38/F ROOM: RE08/26/[address]: Hermelindo Dowd MD : 1980 BED: DIS: 08/26/2019 SPEC #: [id number] RECD: 08/26/19 12:39 STATUS: VALERIO RESaji #: [id number] CESAR: 08/26/19 09:[address]: Hermelindo Dowd DEPT: [facility] Cytology RECD BY: Carey Duong ENTERED: 08/26/19 12:39 SP TYPE: PAPFT OTHR DR: Esthela Khalil Tissues: 1 - CX/ENDOCX FOR PAP SMEARS Procedures: PAP THIN PREP/UVM Screening HPV DNA PROBE Comments: [id number]
== END 2019-08-26 11:00 ==
LOC: LBN 10:40
PROVIDERS: PCP Nurse Practitioner; Visit Provider Obstetrics & Gynecology
DX: Z12.4 Encounter for screening for malignant neoplasm of cervix (principal)
CPT/HCPCS: 88142; 87624

== ENCOUNTER 2020-03-20 13:37 | Outpatient (CLI) | payer MEDICAID, SELFPAY ==
--- NOTE | 2020-03-20 | DI.US_ITS ---
EXAM: US LOWER EXTREMITY VENOUS RT CLINICAL HISTORY: PAIN IN RT THIGH, M79.651, ON AND OFF PAIN, H/O DVT AND SUPERFICIAL VENOUS TECHNIQUE: Right lower extremity venous ultrasound performed using grayscale, color-flow, and spectr al Doppler analysis. COMPARISON: No exams were available for comparison FINDINGS: The right common femoral, femoral and popliteal veins demonstrate normal compressibility, augmentatio n, and color Doppler. The posterior tibial veins are patent. The saphenofemoral junction is unremark able. There is no evidence of a Mejia cyst. The soft tissues are unremarkable. IMPRESSION: No DVT. DATA REPOSITORY:
== END 2020-03-20 13:57 ==
PROVIDERS: PCP Nurse Practitioner; Visit Provider Nurse Practitioner Family
DX: M79.651 Pain in right thigh (principal); Z86.718 Personal history of other venous thrombosis and embolism
CPT/HCPCS: 93971

== ENCOUNTER 2021-11-17 16:24 | Outpatient (REF) | payer BC, SELFPAY ==
[2021-11-17 18:46] LABS: HCT 41.1 % (36.0-46.0); HGB 13.6 g/dL (11.2-15.7); MCH 31.1 pg (27.0-33.0); MCHC 33.1 % (32.0-36.0); MCV 93.8 fL (80-95); MPV 9.1 fL (8.0-11.0); Platelet Count 302 10^3/uL (130-400); RBC 4.38 10^6/uL (3.93-5.22); RDW-SD 41.9 fL; WBC 7.36 10^3/uL (4.4-10.8)
[2021-11-17 19:08] LABS: ALT 20 U/L (14-59); AST 18 U/L (15-37); Albumin 3.9 g/dL (3.4-5.0); Alkaline Phosphatase 73 U/L (46-116); Anion Gap 7.9 mmol/L (3-11); BUN 13 mg/dL (7-18); Bilirubin, Total 0.4 mg/dL (0.2-1.0); CO2 28.1 mmol/L (21.0-32.0); CREATININE 0.8 mg/dL (0.55-1.02); Calcium 8.8 mg/dL (8.5-10.1); Chloride 103 mmol/L (98-107); Glucose 83 mg/dL (74-106); Sodium 139 mmol/L (136-145); TSH 1.26 uIU/mL (0.36-3.74); Total Protein 6.9 g/dL (6.4-8.2)
[2021-11-19 10:28] LABS: Hepatitis C Ab w Rflx HCV PCR Negative (Negative)
[2021-11-19 12:53] LABS: HIV-1/2 Ag & Ab Screen Negative (Negative)
== END 2021-11-17 16:25 | disposition home or self-care (01) ==
LOC: NCHCN 16:24
PROVIDERS: PCP Nurse Practitioner; Visit Provider Nurse Practitioner Family
DX: Z00.00 Encounter for general adult medical examination without abnormal findings (principal); F10.11 Alcohol abuse, in remission; F41.9 Anxiety disorder, unspecified; F11.11 Opioid abuse, in remission; Z11.4 Encounter for screening for human immunodeficiency virus [HIV]; Z11.59 Encounter for screening for other viral diseases; Z83.49 Family history of other endocrine, nutritional and metabolic diseases
CPT/HCPCS: 80053; 85027; 86803; 87389; 84443

== ENCOUNTER → 2021-12-28 11:38 | Outpatient (CLI) | payer BC, SELFPAY | PROVIDERS: PCP Nurse Practitioner; Visit Provider Nurse Practitioner Family ==

== ENCOUNTER 2022-03-25 12:42 | Outpatient (REF) | payer BC, SELFPAY ==
--- NOTE | 2022-03-25 10:25 | PAPFT_PTH ---
PATIENT: Yana Duron LOC: [facility] U#:[id number] AGE/SX: 41/F ROOM: RE03/25/[address]: PRESTON Borges : 1980 BED: DIS: 03/25/2022 SPEC #: [id number] RECD: 03/25/22 12:48 STATUS: VALERIO REQ #: [id number] CESAR: 03/25/22 10:[address]: Eli Sena DEPT: [facility] Cytology RECD BY: Carey Duong ENTERED: 03/25/22 12:48 SP TYPE: PAPFT OTHR DR: Esthela Khalil Tissues: 1 - CX/ENDOCX FOR PAP SMEARS Procedures: PAP THIN PREP/UVM Screening HPV DNA PROBE Comments: [id number]
== END 2022-03-25 12:43 | disposition home or self-care (01) ==
LOC: LBN 12:42
PROVIDERS: PCP Nurse Practitioner; Visit Provider Nurse Practitioner Family
DX: Z12.4 Encounter for screening for malignant neoplasm of cervix (principal); N76.0 Acute vaginitis; Z11.51 Encounter for screening for human papillomavirus (HPV); R87.810 Cervical high risk human papillomavirus (HPV) DNA test positive
CPT/HCPCS: 88142; 87624

== ENCOUNTER → 2022-04-08 00:51 | Outpatient (CLI) | payer BC, SELFPAY ==
--- OUTSIDE RECORDS SUMMARY | 2022-04-08 00:54 | XMS_ITS | Encounter Summary ---
:1980 Author Organization [facility] [place] [address] Care Team Providers Name Role Phone Unavailable Primary Care Provider Unavailable Reason for Visit Reason Comments Skin Check Encounter Details Date Type Department Care Team Description 11/20/2012 Office Visit Dermatology Marco Aviles, Acne vulgaris [address] [facility] (Primary Dx) [address] [place] [address] DERMATOLOGY [address] [place] [address] [phone] (Wo rk) Social History Tobacco Use Types Packs/Day Years Used Date Current Every Day Smoker Sex Assigned at Date Recorded Not on file documented as of this encounter Progress Notes Marco Aviles MD - 11/20/2012 12:12 PM EDT Problem is dermatitis. Yana is a 32-year-old woman who has had problems with acne for some 10 years. She was seen in June by Dr. Nura Pierce and was told that she had perioral dermatitis. She was told that she had nodular acne and it was recommended that start isotretinoin. However, she was then unable to plan for five months' worth of visits from [facility] to [place] and so never began this medication. In the meantime, she has done some additional reading and is wondering whether there is more to it than just acne. She has noticed itchy spots on her arms and legs and wonders if she has bug bites. She lives at home with her mother, who has problems with itching in her scalp, and with her 2-year-old daughter, who has a few red spots on her cheeks. The patient has been using T/Gel for her scalp, using borax and peroxide on a daily basis to soak in the bathtub and then showers this off. She is applying vitamin E lotion and oil to her skin. She finds that most lotions actually worsen the condition on her arms and legs. Physical examination reveals a pleasant 32-year-old with multiple tattoos who has keratosis pilaris on the lateral thighs and lateral arms. There is no evidence of any arthropod bites. She has mild to moderate comedonal and mild inflammatory acne vulgaris of the jaw lines and medial cheeks. She has no involvement on her back, upper shoulders, or chest. There is no evidence of any scabetic lesions or arthropod bites on examination today. Assessment and Plan: 1. Acne vulgaris, mild to moderate comedonal and mild inflammatory. a. Patient has multiple allergies, including to Bactrim, that is precluding safe use of spironolactone which I think otherwise would be a good option for her. b. Therefore, instead begin ampicillin 250 mg, take one p.o. b.i.d. for two months and then return to clinic. #60 dispensed with one refill. c. Discussed the possible need to advance to isotretinoin, and the patient would like to do some more reading and consider this option. She is concerned about the side effects, including depression. We discussed the benefits, side effects of Accutane. 2. Keratosis pilaris. a. Patient is adamant that lotions and creams seem to make this condition worse. b. Recommend, however, that she discontinue the use of borax bleach and peroxide on a daily basis to her skin, as this will in the long run tend to dry out and worsen her dermatitis. Certainly may continue vitamin E lotion and/or oil. 3. Suspected arthropod bites. a. Patient does not exactly claim to have seen the bug bites. She does not exhibit delusions of pericytosis, although she almost borders on that with her level of concern. Reassured her multiple times that I see no evidence of bites on exam today. Checking again in two months for repeat check. Note: Half an hour spent with patient, more than half spent in counseling. COPY: Winsome Newton A.P.R.N. documented in this encounter Plan of Treatment Not on filedocumented as of this encounter Visit Diagnoses Diagnosis Acne vulgaris - Primary Other acne documented in this encounter
--- OUTSIDE RECORDS SUMMARY | 2022-04-08 00:54 | XMS_ITS | Encounter Summary ---
:1980 Author Organization [facility] Address [facility] [address] [place] [address] Care Team Providers Name Role Phone Unavailable Primary Care Provider Unavailable Reason for Visit Reason Comments Benign Breast Encounter Details Date Type Department Care Team Description 10/22/2013 Office Visit General Surgery at Stephanie Damon le discharge [facility] [place] VAIBHAV Terrell (Primary Dx) [facility] [address] [facility] [address] [place] [address] [phone] (Wo rk) Social History Tobacco Use Types Packs/Day Years Used Date Current Every Day Smoker Sex Assigned at Date Recorded Not on file documented as of this encounter Progress Notes Stephanie Damon APRN - 10/22/2013 8:53 AM EDT Ms. Duron is a 32 y.o. year-old patient who I am seeing at the request of Pattie Shelley APRN, to evaluate a long standing history of bilateral nipple discharge L>R. By way of history,her symptoms began about 7 years ago when she noticed leaking of fluid from both breasts.The fluid has never been bloody, usually milky in appearance. It is typically spontaneous but she can express it as well. 7 Years ago she believes she had an associated elevated prolactin (no info outside info available rufino prior prolactin). Of note, she has a prior history of narcotic abuse and is currently clean and hasn't used for many years. She did have a relapse about 6 years ago.Only meds now are falx seed oil and MVI. In early 2008 she had a baby and breast fed for about 6 months.After she stopped nursing she developed intermittent milky nipple discharge L>R again, which has persisted. She had a recent prolactin level and TSH,both normal. She cannot feel any masses.Bilateral mammo and US at [facility] last month were normal/benign with a smallcyst seen on the right. She denies any skin changes,breast trauma,mastitis or prior breast surgery. She does have a history of cystic breast tissue and has not had cysts aspirated or breast biopsies in the past. She has been bothered with more frequent breast pain,not her typical cyclic breast pain.She wears a bra. She does do occasional self-breast exams. Weight stable. She has no new or concerning complaints of fatigue, cardiovascular or respiratory symptoms. All other ROS are negative. Reproductive History: , had her first child at the age of 27 and did nurse her children. Menarche began at 14.Her LMP was 3 weeks ago. HRT/OC: none Family History: Negative for breast or ovarian cancer. Social History: She does smoke and has for 18 years. Past Medical History: Scoliosis Past Surgical History: C section x 2, Bose Rods Physical Exam: She looks well and is in no apparent distress. Her skin is anicteric with good turgor. Sclera are anicteric. Her head and neck are without masses or adenopathy. Her arms have good ROM without any evidence of lymphedema. Breasts are small And asymmetric with her left being slightly larger than her right. Her nipples are everted. There is no axillary adenopathy on the right or the left. There are no skin changes or dimpling noted in either breast. The left breast is notable for generally homogenous breast tissue,without discrete masses. With firmpressure a small amount of greyish fluid was expressed from several ducts. Her right breast exam is similar in character to her left breast,without discrete masses. No nipple discharge could be expressed with firm pressure. Assessment: Clinical breast exam notable for fibrocystic breast tissue without discrete masses.Physiologic nipple discharge,possibly more problematic due to duct ectasia, seen in heavy smokers. Hormonal, non cyclic breast pain. Plan: I have discussed my assessment and recommendations with Ms. Duron to include occasional self-breast exams and annual clinical breast exams. We discussed how the symptoms she is experiencing are most likely related to hormonal changes and will improve over time. In light of her history and findings, I recommend observation at this time and PRN surgical follow up. She will also contact me if she develops any new masses in her breast or if her nipple discharge becomes bloody or worse. We discussed causes of nipple discharge to include normal physiologic changes in the breast, intraductal papillomas, duct ectasia, pituitary adenomas,thyroid dysfunction,cancer or medication related. None of her medications, based on my review result in galactorrhea. We discussed how intraductal papillomas typically cause large volume clear fluid or bloody fluid that is easily expressed.She does not have clinical evidence of an intradcutal papilloma. We also discussed the character of normal breast fluid to be green, bluish, lau, yellow, creamy or brownish in color. In light of her history and findings, I recommend observation at this time We discussed the various causes of breast pain to include hormonal influences, large breast size andneed for better support. She understands that for most women breast pain is self limiting and will improve over time. I have recommended regular use of a supportive bra and consideration of a course of ibuprofen,heat or ice. I have suggested she monitor her symptoms for the next several weeks and contact me if her pain worsens or if it does not improve. We discussed the role of smoking in the development and persistence of rhona ductal mastitis. She understands that without smoking cessation, she has at least a 50% chance of have recurrent symptoms despite surgical intervention. This risk will drop to 10-20% if she does stop smoking. Based on her average risk status,her next bilateral screening mammogram is due at age 40-50 or sooner if indicated. Ms. Duron agrees to this plan. SRIDEVI MOLINA MD documented in this encounter Plan of Treatment Not on filedocumented as of this encounter Visit Diagnoses Diagnosis Nipple discharge - Primary Other sign and symptom in breast documented in this encounter
--- OUTSIDE RECORDS SUMMARY | 2022-04-08 00:54 | XMS_ITS | Encounter Summary ---
:1980 Author Organization [facility] [place] [address] Care Team Providers Name Role Phone Unavailable Primary Care Provider Unavailable Reason for Visit Reason Comments Acne Encounter Details Date Type Department Care Team Description 06/18/2012 Office Visit Dermatology at Nura El[facility] Acne (Primary Dx) Skinny Núñez MD [address] [place] [address] DERMATOLOGY DEPT . [place], [place] [address] (Wo rk) Social History Tobacco Use Types Packs/Day Years Used Date Current Every Day Smoker Sex Assigned at Date Recorded Not on file documented as of this encounter Progress Notes Nura Pierce MD - 06/18/2012 11:32 AM EST DERMATOLOGY NEW PATIENT CLINIC NOTE Date of service: 06/18/2012 @PATIENTNAME@ : 1980 Provider: Nura Pierce MD PROBLEM: perioral dermatitis. HPI Ms. Duron is a 31 y.o. year old female . New patient; self-referred.here today for perioral dermatitis. She SKIN HX: Adult acne ADR: Bactrim, Flagyl and Augmentin MEDS: Current outpatient prescriptions ordered prior to encounter Medication Sig Dispense Refill ??? METHADONE HCL (METHADONE ORAL) ??? FLINTSTONES MULTIVITAMIN ORAL ??? nicotine (NICODERM CQ) 14 mg/24 hr 14 MG/24h = 1 Patch(es), TD, Once daily ??? nicotine (NICODERM CQ) 14 mg/24 hr 14 MG/24h = 1 Patch(es), TD, Once daily ??? OXYcodone-acetaminophen (PERCOCET) 5-325 mg per tablet 1-2 Tablet(s), PO, Q4H,PRN ??? ibuprofen (MOTRIN) 600 mg tablet ROS General: feeling well Skin: denies other skin complaints EXAM General: NAD, pleasant, cooperative Skin: A total body skin exam except for areas covered by underwear was performed. This includes examination of the skin of the face, ears, neck, chest, axillae, left and right upper and lower extremities, hands and feet, abdomen, and except the areas covered by underwear were not examined. Significant skin findings: A. Erythematous papules and pustules, open and closed comedones on face, back, and chest. cystic lesions and scarring noted. ASSESSMENT/PLAN: A. Nodular acne, with pitting scars- face,chin,neck- will start Minocycline for 1 month,then start Accutane. Labs drawn today: CBC,HCG,AST,ALT,Triglycerides. Will start two forms of BC B. RTC 1 month Note initiated by: MEAGHAN PULIDO LPN Routed to physician for review and changes: Nura Pierce MD Section of Dermatology [facility] documented in this encounter Plan of Treatment Not on filedocumented as of this encounter Procedures Procedure Name Priority Date/Time Associated Comments Diagnosis URINE, Routine 06/18/2012 12:05 Acne Results for this QUALITATIVE PM EST procedure are i n ([facility]) the res ults section. DIFFERENTIAL, AUTOMATED Routine 06/18/2012 12:03 Results for this PM EST procedure are i n the results section. CBC (WITH DIFF) Routine 06/18/2012 12:03 Acne Results for this PM EST procedure are i n the results section. TRIGLYCERIDE Routine 06/18/2012 12:03 Acne Results for this PM EST procedure are i n the results section. ALANINE AMINOTRANSFERASE Routine 06/18/2012 12:03 Acne Results for this PM EST procedure are i n the results section. ASPARTATE Routine 06/18/2012 12:03 Acne Results for this AMINOTRANSFERASE PM EST procedure a re in the results section. documented in this encounter Results urine, qualitative (06/18/2012 12:05 PM EST) P athologist Signature SG Urine 1.018 1.002 - CERNER 1.030 MILLENNIUM HCG Qual Negative CERNER MILLENNIUM Comment: If Specific [place] is less than 1.010, a negative result is obtained, and is still suspect ed, a repeat on a first morning specimen is recommended. Specimen Anatomical Collection Method Collection Time Receive d Time (Source) Location / / Volume Laterality Urine specimen 06/18/2012 12:05 2 (specimen) PM EST 12:56 PM EST Resulting Agency Comment Spec In Lab Nura Pierce MD URINE ORDERABLES Performing Organization Address City/State/ZIP Code Phon e Number [place] [id number] CERNER MILLENNIUM (ABNORMAL) DIFFERENTIAL, AUTOMATED (06/18/2012 12:03 PM EST) Patholo gist Method Time Signature Neutrophils % 68.1 34.0 - CERNER 71.0 % MILLENNIUM Neutr Abs (ANC) 6.51 (H) 1.50 - CERNER 6.30 MILLENNIUM x10(3)/mc L Lymphocytes % 26.1 19.0 - CERNER 53.0 % MILLENNIUM Lymphocytes Abs 2.5 1.0 - 3.6 CERNER x10(3)/mc MILLENNIUM L Monocytes % 5.1 4.0 - CERNER 13.0 % MILLENNIUM Monocyte Abs 0.5 0.2 - 1.0 CERNER x10(3)/mc MILLENNIUM L Eosinophils % 0.4 0.0 - 7.0 CERNER % MILLENNIUM Eosinophils Abs 0.0 0.0 - 0.5 CERNER x10(3)/mc MILLENNIUM L Basophils % 0.2 0.0 - 2.0 CERNER % MILLENNIUM Basophils Abs 0.0 0.0 - 0.2 CERNER x10(3)/mc MILLENNIUM L Immature Gran % 0.10 0.00 - CERNER 0.66 % MILLENNIUM Comment: Immature granulocytes(IG's)percentage an d absolute count will include metamyelocytes, myelocytes, and promyelo cytes. Blood smears from CBCs yielding IG's will be scanned manually for concor dance. If this scan disagrees with the automated IG or if promyelocytes are not ed, a manual differential will be performed. Luci Gran Abs 0.01 0.00 - 0.05 x10(3)/mcL CER NER MILLENNIUM Specimen Anatomical Collection Method Collection Time Receive d Time (Source) Location / / Volume Laterality Blood specimen 06/18/2012 12:03 2 (specimen) PM EST 12:53 PM EST Nura Pierce MD HEMATOLOGY ORDERABLES Performing Organization Address City/[facility]/ZIP Code Phon e Number [address] CERNER MILLENNIUM Triglyceride (06/18/2012 12:03 PM EST) athologist Signature Triglycerides 45 <=149 CERNER mg/dL MILLENNIUM Comment: Reference Range: Normal triglycerides: ??<150 mg/dL Borderline high: ??150-199 mg/dL High: ??200-499 mg/dL Very high: ??>cf=311 mg/dL CARLENE 2001; 285(56):1030-8345 Specimen Anatomical Collection Method Collection Time Receive d Time (Source) Location / / Volume Laterality Blood specimen 06/18/2012 12:03 2 (specimen) PM EST 12:52 PM EST Resulting Agency Comment Spec In Lab Nura Pierce MD CHEMISTRY ORDERABLES Performing Organization Address City/[facility]/ZIP Code Phon e Number [address] CERNER MILLENNIUM Alanine Aminotransferase (06/18/2012 12:03 PM EST) athologist Signature ALT 10 0 - 30 CERNER unit/L MILLENNIUM Specimen Anatomical Collection Method Collection Time Receive d Time (Source) Location / / Volume Laterality Blood specimen 06/18/2012 12:03 2 (specimen) PM EST 12:52 PM EST Resulting Agency Comment Spec In Lab Nura Pierce MD CHEMISTRY ORDERABLES Performing Organization Address City/[facility] Phon e Number [address] CERNER MILLENNIUM Aspartate Aminotransferase (06/18/2012 12:03 PM EST) P athologist Signature AST 16 0 - 30 CERNER unit/L MILLENNIUM Specimen Anatomical Collection Method Collection Time Receive d Time (Source) Location / / Volume Laterality Blood specimen 06/18/2012 12:03 2 (specimen) PM EST 12:52 PM EST Resulting Agency Comment Spec In Lab Nura Pierce MD CHEMISTRY ORDERABLES Performing Organization Address City/[facility]/ZIP Code Phon e Number [address] CERNER MILLENNIUM (ABNORMAL) CBC (with Diff) (06/18/2012 12:03 PM EST) P athologist Signature WBC 9.6 4.0 - 10.0 CERNER x10(3)/mcL MILLENNIUM RBC 4.78 3.93 - CERNER 5.22 MILLENNIUM x10(6)/mcL Hemoglobin 15.3 11.2 - CERNER 15.7 gm/dL MILLENNIUM Hematocrit 45.0 34.0 - CERNER 45.0 % MILLENNIUM MCV 94.1 (H) 79.0 - CERNER 94.0 fL MILLENNIUM MCH 32.0 26.6 - CERNER 32.2 pg MILLENNIUM MCHC 34.0 32.0 - CERNER 36.5 gm/dL MILLENNIUM Platelets 214 145 - 370 CERNER x10(3)/mcL MILLENNIUM RDWSD 44.2 35.0 - CERNER 46.0 fL MILLENNIUM RDWCV 12.8 10.9 - CERNER 14.4 % MILLENNIUM MPV 10.2 9.0 - 12.0 CERNER fL MILLENNIUM Specimen Anatomical Collection Method Collection Time Receive d Time (Source) Location / / Volume Laterality Blood specimen 06/18/2012 12:03 2 (specimen) PM EST 12:53 PM EST Resulting Agency Comment Spec In Lab Nura Pierce MD HEMATOLOGY ORDERABLES Performing Organization Address City/[facility]/ZIP Code Phon e Number [address] CERNER MILLENNIUM documented in this encounter Visit Diagnoses Diagnosis Acne - Primary Other acne documented in this encounter
--- OUTSIDE RECORDS SUMMARY | 2022-04-08 00:54 | XMS_ITS | Encounter Summary ---
:1980 [place] [address] Care Team Providers Name Role Phone Unavailable Primary Care Provider Unavailable Encounter Details Date Type Department Care Team Description 09/27/2013 Orders Only Radiology Kacie Colin MD [facility] [place] [address] DIAGNOSTIC RADIOLOGY [phone] [place], [place] [address] (Wo rk) Social History Tobacco Use Types Packs/Day Years Used Date Current Every Day Smoker Sex Assigned at Date Recorded Not on file documented as of this encounter Plan of Treatment Pending Results Name Type Priority Associated Diagnoses Date/Ti me Film Library- Storage Imaging Routine 2013 1:55 PM EST only Mammo documented as of this encounter Visit Diagnoses Not on filedocumented in this encounter
--- OUTSIDE RECORDS SUMMARY | 2022-04-08 00:54 | XMS_ITS | Clinical Summary ---
:1980 Author Organization [facility] [place] [address] Care Team Providers Name Role Phone Esthela Khalil APRN Primary Care Provider Allergies Active Allergy Reactions Severity Noted Date Comments Amoxicillin-Pot Clavulanate 06/18/2012 Sulfamethoxazole-Trimethoprim 06/18/2012 Metronidazole Hcl 06/18/2012 Medications Medication Sig Dispensed Refills Start Date End Date Status FLINTSTONES MULTIVITAMIN ORAL 0 07/16/2007 Active Active Problems Problem Noted Date Nipple discharge 10/22/2013 Acne 06/18/2012 Social History Tobacco Use Types Packs/Day Years Used Date Current Every Day Smoker Sex Assigned at Date Recorded Not on file Plan of Treatment Health Maintenance Due Date Last Done Comments Covid-19 Vaccine (#1) 1986 HIV screen 11/15/1999 Hepatitis C Screening 11/15/1999 Tdap adult 2000 Tetanus vaccine 2000 HPV test 11/15/2011 PAP Smear 11/15/2011 Breast Cancer Share Decision Needed 2021 Influenza (Flu) vaccine ( of - Influenza standard 04/07/2022 series) Insurance Payer Benefit Plan / Subscriber ID Effective Dates Phone Addre ss Type Group [employer] [place] [id number] 2018-Presen [phone] [address] [place] [address] [address] [place] [phone] Care Teams Manager Infrastructure Relationship Specialty Start Date End Date Esthela Khalil APRN PCP - General Family Medicine 06/29/21 [address] [facility] [place] [address]
--- OUTSIDE RECORDS SUMMARY | 2022-04-08 00:55 | XMS_ITS | Encounter Summary ---
:[address] [facility] Address [address] [place] [address] Care Team Providers Name Role Phone Poly Godoy MD Primary Care Provider Encounter Details Date Type Department Care Team Description 12/24/2008 [facility] - [address] [place], [place] [address] [facility] [address] [place], [place] [address] [phone] Social History Tobacco Use Types Packs/Day Years Used Date Never Assessed Sex Assigned at Date Recorded Not on file documented as of this encounter Discharge Disposition Disposition Code Departure Means Destination Home or Self Assisted documented in this encounter Progress Notes Ricardo Mai NP - 12/24/2008 0000 EDT DIVISION OF HEMATOLOGY / ONCOLOGY PROGRESS/FOLLOWUP NOTE - 12/24/2008 PURPOSE OF VISIT Ongoing management of hypercoagulable syndrome as manifested in a superficial DVT in the setting. MEDICAL PROBLEM LIST 1. Hypercoagulable syndrome. a. 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 Polysubstance abuse. 3. Asthma. 4. Tobacco abuse. 5. Scoliosis repair with Bose rods at age 14. HISTORY OF PRESENT ILLNESS Ms Duron is a 28-year-old female, G2, P2, who gave via section on December 08, 2008. Percy states a history of intermittent leg swelling for months prior to . She attributed this symptom to being . She also experienced a 50-pound weight gain with this . The patient had an ultrasound on November 10, 2008, which was negative for any evidence of DVT in either extremity. Approximately two days after giving , Ms Duron describes pain in the upper right leg as being sharp and cramping. She underwent ultrasound, which confirmed superficial DVT in this area. She was initially started on Lovenox 40 mg subcutaneously b.i.d. She is here this afternoon regarding further management. On presentation this afternoon, Ms Duron states overall feeling well. She continues to complain of some leg swelling, although she says it is greatly improved. The tenderness in her upper calf is almost completely resolved. She complains of fatigue, she attributes this to . She specifically denies any shortness of breath or chest pain. She denies any unusual bruising or bleeding fromthe Lovenox. She describes her bleeding secondary to recent as light at this point, using meme pad in the evening and only one pad during the day. ALLERGIES ERYTHROMYCIN CAUSES CRAMPING AND ABDOMINAL PAIN. Denies allergies to either latex or food. MEDICATIONS 1. Fenugreek. 2. Colace 100 mg b.i.d. 3. Folic acid. 4. Subutex 8 mg sublingual daily. 5. Lovenox 40 mg b.i.d. REVIEW OF SYSTEMS A 10-point review of systems was reviewed by the patient and myself and is dictated in her chart. Pertinent negatives: no shortness of breath, no chest pain. Pertinent positives: fatigue. PHYSICAL EXAM Temperature is 36.4. Heart rate is 80. Respirations are 16. Blood pressure is 120/78. Weight this afternoon is 83.2 kg. General: A well-developed, well- nourished female in no apparent distress. ECOG status 0. Head, ears, eyes, nose and throat: The patient is normocephalic. Ocular movements are intact. The sclerae are clear. The conjunctivae are pink. Oropharynx is moist and intact without evidence of mucosal breakdown. Lungs are clear to auscultation bilaterally. No wheezes, rales or rhonchi. Cardiac: S1, S2 with a regular rate and rhythm. No gallop, rub or murmur. Abdomen is mildly distended secondary to . Scattered, small, minute hematomas secondary to Lovenox injections. Theupper right thigh is not tender to palpation; however, there is still a small cord palpable, less than a centimeter in diameter. There is no tenderness on palpation of the lower extremities. They are somewhat erythematous in appearance. No palpable cords in the popliteal area. No cyanosis. ASSESSMENT Ms Duron is a 28-year-old female, G2, P2, with a right upper thigh superficial deep vein thrombosis (DVT) in the setting of daytwo . Since I last saw this patient on December 17, 2008, bleeding has reduced substantially. At this point, we will increase her Lovenox dose to 80 mg subcutaneouslyb.i.d. and treat her for eight weeks . I have also asked Ms Duron tohave a CBC drawn prior to leaving the hospital this afternoon. PLAN 1. Anticoagulation: Continue Lovenox at 80 mg subcutaneously b.i.d. Length of anticoagulation eight weeks , treatment to complete at the end of January. 2. Tobacco: Again, discussed the importance of trying to quit with the patient this afternoon. 3. Followup: We will see Ms Duron approximately one month after the completion of treatment. Ms Duron was instructed to call with any other questions or concerns. Electronically Signed by Ricardo Mai APRN 01/07/2009 17:02 Dictated by: Ricardo Mai APRN - VAIBHAV Mai A - Job ID: [id number] Document ID: [id number] cc: MD Rocael Velázquez MD,PhD MD Estelle Hester MD - Ricardo Mai APRN A - rf Job ID: [id number] Document ID: [id number] cc: MD Rocael Velázquez MD,PhD MD Estelle Hester MD documented in this encounter Plan of Treatment Not on filedocumented as of this encounter Visit Diagnoses Not on filedocumented in this encounter Care Teams Storage Worker Relationship Specialty Start Date End Date Poly Godoy MD PCP - General 11/24/08 11/18/[address] [place] [phone] documented as of this encounter
--- OUTSIDE RECORDS SUMMARY | 2022-04-08 00:55 | XMS_ITS | Encounter Summary ---
:1980 Author Organization [facility] Address [address] [place] [address] Care Team Providers Name Role Phone Poly Godoy MD Primary Care Provider Encounter Details Date Type Department Care Team Description 08/26/[address] [facility] Hermelindo Dowd MD Encounter for other Pathology & [address] [place] [address] general examination Laboratory Medicine [address] [phone] [place] [address] (Work) [phone] Social History Tobacco Use Types Packs/Day Years Used Date Current Every Day Smoker 0.25 Alcohol Use Standard Drinks/Week Comments No 0 (1 standard drink = 0.6 oz pure alcoho l) Sex Assigned at Date Recorded Not on file documented as of this encounter Plan of Treatment Not on filedocumented as of this encounter Procedures Procedure Name Priority Date/Time Associated Comments Diagnosis PAP TEST Today 08/26/2019 9:00 Encounter for other Resul ts for this EST general examination procedur e are in the results section. HUMAN PAPILLOMAVIRUS Today 08/26/2019 9:00 Encounter for ot er Results for this (HPV) DETECTION-HIGH EST general examination procedure are in RISK TYPES the results section. documented in this encounter Results HUMAN PAPILLOMAVIRUS (HPV) DETECTION-HIGH RISK TYPES (08/26/2019 9:00 EST) Human Papillomavirus NegativeComment: No Negative UV MEDICAL (HPV) Detection-High E6 or E7 mRNA is CENTER LABORATOR Y Types detected from HPV SERVICES types 16,18,31,33,35,39,45 ,51,52,56,58,59,66, and 68 by airborne weapons technical manager mediated amplification. Specimen Pap Test - Cervix and/or Endocervix Performing Organization Address City/State/ZIP Code Phon e Number [facility] [address] [place] [address] SERVICES PAP TEST (08/26/2019 9:00 EST) Specimens A. Cervix and/or [facility] MEDICAL Endocervix, , CENTER ThinPrep Imaging LABORATORY System with Manual SERVICES Evaluation Specimen Adequacy Satisfactory for [facility] MEDICAL Evaluation - CENTER transformation zone LABORATORY component present SERVICES General Negative for [facility] Categorization intraepithelial CENTER lesion or malignancy LABORATORY SERVICES Descriptive Shift in [place] [facility] MEDICAL Diagnosis present suggestive of CENTER bacterial vaginosis. LABORATORY SERVICES Attestation . [facility] Electronically CENTER signed by Jenifer hernandez LABORATORY Cecily on 2019 SERVICES at 1515 Clinical History NONE [facility] SERVICES HPV The result for the Human Pap illomavirus (HPV) Detection-High Risk Types is Negative. No E6 or E7 mRNA is detected from HPV types 16,18,31,33,35,39,45,51,52,56,58,59,66, and 68 by airborne weapons technical manager mediated [facility] MEDICAL amplification.Testing was pe rformed on specimen [id number] and was resulted on 09/04/2019 1515 EST by SERENE, LAB INSTRUMENT RESULTS IN [facility] SERVICES Scanned Images [facility] SERVICES Specimen Pap Test - Cervix and/or Endocervix Performing Organization Address City/State/ZIP Code Phon e Number [facility] [address] [place] [address] SERVICES documented in this encounter Visit Diagnoses Diagnosis Encounter for other general examination documented in this encounter Care Teams Master Welder Relationship Specialty Start Date End Date Poly Godoy MD PCP - General 06/21/[address] [place] [phone] documented as of this encounter
--- OUTSIDE RECORDS SUMMARY | 2022-04-08 00:55 | XMS_ITS | Encounter Summary ---
:1980 Author Organization [facility] Address [address] [place] [address] Care Team Providers Name Role Phone Aravind Sanz MD Primary Care Provider Encounter Details Date Type Department Care Team Description 11/19/2010 Hospital Encounter [address] [place] [phone] (Wo rk) Social History Tobacco Use Types Packs/Day Years Used Date Current Every Day Smoker 0.25 Alcohol Use Standard Drinks/Week Comments No 0 (1 standard drink = 0.6 oz pure alcoho l) Sex Assigned at Date Recorded Not on file documented as of this encounter Medications at Time of Discharge Medication Sig Dispensed Refills Start Date End Date acetaminophen (TYLENOL) 500 Take by mouth as 0 mg tablet needed for Pain. aspirin 81 mg EC tablet Take 81 mg by 0 mouth daily. buprenorphine-naloxone Place 16 mg under 0 (SUBOXONE) 2-0.5 mg Subl the tongue daily. lisdexamfetamine (VYVANSE) 40 Take 40 mg by 0 mg capsule mouth daily. documented as of this encounter Discharge Disposition Disposition Code Departure Means Destination Home or Self Intermediate documented in this encounter Plan of Treatment Not on filedocumented as of this encounter Visit Diagnoses Not on filedocumented in this encounter Care Teams Desulphuring Operator Relationship Specialty Start Date End Date Aravind Sanz MD PCP - General 11/19/10 06/20/[address] [place] [phone] documented as of this encounter
--- OUTSIDE RECORDS SUMMARY | 2022-04-08 00:55 | XMS_ITS | Encounter Summary ---
:1980 Author Organization [facility] Address [address] [place] [address] Care Team Providers Name Role Phone Unavailable Primary Care Provider Unavailable Encounter Details Date Type Department Care Team Description 10/17/2008 Hospital Encounter [facility] - Brooke Paul MD [address] [facility], [address] [place] [phone] [facility] Di Minaya MD [address] [facility] Medical Office Building, [address] [place] [phone] [place] [phone] Social History Tobacco Use Types Packs/Day Years Used Date Never Assessed Sex Assigned at Date Recorded Not on file documented as of this encounter Discharge Disposition Disposition Code Departure Means Destination Auto Discharge documented in this encounter Plan of Treatment Not on filedocumented as of this encounter Procedures Procedure Name Priority Date/Time Associated Comments Diagnosis COMPLETE BLOOD COUNT Routine 12/17/2008 14:43 Res ults for this AND DIFFERENTIAL EDT procedure a re in the results section. CARE HOME FOLLOW-UP 11/21/2008 16:28 Results fo r this EDT procedure are i n the results section. RAD US DOPPLER LOWER 11/10/2008 13:45 Res ults for this EXTREMITY VENOUS EDT procedure a re in BILATERAL the results section. CARE HOME DETAILED 10/23/2008 14:22 Results for this EDT procedure are i n the results section. documented in this encounter Results (ABNORMAL) HEMAGRAM AND DIFFERENTIAL (12/17/2008 14:43 EDT) Pathologist Sig nature WBC 9.28 4.0 - 12.4 K/cmm [facility] RBC 4.16 3.86 - 5.04 M/cmm [facility] Hemoglobin 12.5 11.6 - 15.2 gm/dl [facility] HCT 36.1 34.9 - 44.4 % [facility] MCV 87 81 - 98 fl [facility] MCH 30.0 26.7 - 33.3 pg [facility] MCHC 34.7 32.1 - 35.9 gm/dl [facility] PLT 367 (H) 141 - 320 K/cmm [facility] RDW-CV 13.8 11.7 - 14.6 % [facility] Neutrophils 56.9 45.5 - 79.7 % [facility] Lymphocytes 31.7 15.0 - 46.8 % [facility] Monocytes 4.6 1.8 - 12.0 % [facility] Eosinophils 6.0 0.6 - 6.9 % [facility] Basophils 0.8 0.2 - 1.4 % [facility] ABS Neutrophils 5.28 2.20 - 8.85 K/cmm [facility] ABS Lymphs 2.94 1.09 - 3.30 K/cmm [facility] ABS Monocytes 0.43 0.1 - 0.8 K/cmm [facility] ABS Eosinophils 0.56 0.03 - 0.61 K/cmm [facility] ABS Basophils 0.08 0.01 - 0.11 K/cmm [facility] Type of Diff: Automated [facility] Specimen Performing Organization Address City/State/ZIP Code Phon e Number [facility] [address] [place] [address] SERVICES [facility] [address] [place] [address] CARE HOME FOLLOW-UP (11/21/2008 16:28 EDT) Anatomical Region Laterality Modality Other Specimen Narrative [facility] - 11/25/2008 9:46 EDT Please refer to the separate [facility] re port. ??Contact Maternal Medicine. Procedure Note 11/26/2008 Please refer to the separate [facility] re port. Contact Maternal Medicine. Performing Organization Address City/State/ZIP Code Phon e Number [facility] RAD US DOPPLER LOWER EXTREMITY VENOUS BILATERAL (11/10/2008 13:45 EDT) Anatomical Region Laterality Modality Other Specimen Narrative [facility] - 12/02/2008 3: 20 EDT 27 yo @ 35 wks gestational age with severe le edema,pain and skin mottingly bilaterally Bilateral lower extremity venous Doppler ultrasound 10 November 2008 History: 27-year-old at 35 weeks gestati onal age with lower extremity edema bilaterally. Rule out deep venous thrombosis. Findings: Compression and color Doppler imaging of both lower extremities demonstrates readily rudy sible common femoral veins superficial femoral veins and popliteal veins bilaterally. The posterior tibial veins and peroneal vein s [id number] are also readily compressible. Normal flow is obs erved in the external iliac veins and profunda femoral veins bilater ally on color Doppler imaging. Impression: No evidence for deep venous thrombosis in either lower extremity from the groin through the eugenie f level. Procedure Note Juan Carlos Gordon, - 12/02/2008 27 yo @ 35 wks gestational age with sev ere le edema,pain and skin mottingly bilaterally Bilateral lower extremity venous Doppler ultrasound 10 November 2008 History: 27-year-old at 35 weeks gestati onal age with lower extremity edema bilaterally. Rule out deep venous thrombosis. Findings: Compression and color Doppler imaging of both lower extremities demonstrates readily rudy sible common femoral veins superficial femoral veins and popliteal veins bilaterally. The posterior tibial veins and peroneal vein s [id number] are also readily compressible. Normal flow is obs erved in the external iliac veins and profunda femoral veins bilater ally on color Doppler imaging. Impression: No evidence for deep venous thrombosis in either lower extremity from the groin through the eugenie f level. Performing Organization Address City/State/ZIP Code Phon e Number [facility] [address] [facility] [address] [facility] [address] [place], [place] [address] CARE HOME DETAILED (10/23/2008 14:22 EDT) Anatomical Region Laterality Modality Other Specimen Narrative [facility] - 12/02/2008 2: 08 EDT ROUTINE,[id number]/SUBUTEX USE,CIGARETTE SMOKING,check old c/section scar in ref to placenta /TRANSFER OF CARE Please refer to the separate [facility] re port. ??Contact Maternal Medicine. Procedure Note Uche Pascual MD - 12/02/2008 ROUTINE,[id number]/SUBUTEX USE,CIGARETTE SMO MARCIAL,check old c/section scar in ref to placenta /TRANSFER OF CARE Please refer to the separate [facility] re port. Contact Maternal Medicine. Performing Organization Address City/State/ZIP Code Phon e Number [facility] [address] [facility], [facility] [address] [facility] [address] [place], [place] [address] documented in this encounter Visit Diagnoses Not on filedocumented in this encounter
--- OUTSIDE RECORDS SUMMARY | 2022-04-08 00:55 | XMS_ITS | Encounter Summary ---
:1980 Author Organization [facility] Address [address] [place] [address] Care Team Providers Name Role Phone Poly Godoy MD Primary Care Provider Encounter Details Date Type Department Care Team Description 08/26/2019 Lab Requisition [facility] Unknown, Provider, Pathology & Laboratory [facility] [address] [place] [address] [place] [address] Social History Tobacco Use Types Packs/Day Years Used Date Current Every Day Smoker 0.25 Alcohol Use Standard Drinks/Week Comments No 0 (1 standard drink = 0.6 oz pure alcoho l) Sex Assigned at Date Recorded Not on file documented as of this encounter Plan of Treatment Not on filedocumented as of this encounter Procedures Procedure Name Priority Date/Time Associated Diagnosis Comme nts PROTEIN S ACTIVITY Routine 08/26/2019 10:03 Resul ts for this EST procedure are i n the results section. PROTEIN C ACTIVITY Routine 08/26/2019 10:03 Resul ts for this EST procedure are i n the results section. documented in this encounter Results PROTEIN S ACTIVITY (08/26/2019 10:03 EST) Protein S 115 64 - 147 % [facility] Activity Comment: LABORATORY a.Acquired Protein S deficie ncies are associated with vitamin K antagonists, acute thrombotic events, , vitamin K deficiency, L-aspariginase treatment and inflammatory syndrome. Deficiencies ma SERVICE S y or may not be present in liver disease and DIC. b.Results may be affected by plasma heparin levels greater than 1.6 U/mL for UFH or greater than 1.8 U/mL for LMWH. c.Results may be overestimat ed in the presence of direct Xa inhibitors (rivaroxaban, apixaban, edoxaban) and direct thrombin inhibitors (dabigatran, argatroban, bivalirudin). d.Acute illness and/or throm bosis may influence test results in an unpredictable manner, therefore results should be interpreted with caution in this setting. e.Age and hormonal status may affect the normal range for females. Specimen Blood - Venous blood (substance) Performing Organization Address [facility] Phon e Number [facility] [address] [place] [address] SERVICES PROTEIN C ACTIVITY (08/26/2019 10:03 EST) Protein C Clot 114 71 - 199 % [facility] Comment: LABORATORY a. Acquired Protein C defici encies are associated with vitamin K antagonists, acute thrombotic events, vitamin K deficiency, liver disease and DIC. SERVICES b. Results may be affected b y plasma heparin levels greater than 1.5 U/mL for UFH and 0.8 for LMWH. c. Results may be overestima briana in the presence of direct Xa inhibitors (rivaroxaban, apixaban, edoxaban) and direct thrombin inhibitors (dabigatran, argatroban, bivalirudin). d. Acute illness and/or thro mbosis may influence test results in an unpredictable manner; therefore, results should be interpreted with caution in this setting. Specimen Blood - Venous blood (substance) Performing Organization Address [facility] e Number [facility] [address] [place] [address] SERVICES documented in this encounter Visit Diagnoses Not on filedocumented in this encounter Care Teams Second Hand Paper Machine Relationship Specialty Start Date End Date Poly Godoy MD PCP - General 06/21/[address] [place] [phone] documented as of this encounter
--- OUTSIDE RECORDS SUMMARY | 2022-04-08 00:55 | XMS_ITS | Encounter Summary ---
:1980 Author Organization [facility] Address [address] [place] [address] Care Team Providers Name Role Phone Poly Godoy MD Primary Care Provider Encounter Details Date Type Department Care Team Description 10/06/2008 Before PRISM Converted [facility], Visit ([place]) [facility] - [address] [phone] Social History Tobacco Use Types Packs/Day Years Used Date Never Assessed Sex Assigned at Date Recorded Not on file documented as of this encounter Plan of Treatment Not on filedocumented as of this encounter Procedures Procedure Name Priority Date/Time Associated Diagnosis Comme nts DRUG SCREEN 6 Routine 10/06/2008 9:58 EST Results for this procedure are i n the results section . documented in this encounter Results DRUG SCREEN 6 (10/06/2008 9:58 EST) Amphetamine Screen, Negative Screen [facility] Urine Suitable for medical purposes only. LAB Will not detect all drugs within class. Cutoff = 1000 ng/ml Barbiturate Screen, Negative Screen [facility] Urine Suitable for medical purposes only. LAB Will not detect all drugs within class. Cutoff = 300 ng/ml Benzodiazepine Screen, Negative Screen [facility] Urine Suitable for medical purposes only. LAB Will not detect all drugs within class. Cutoff = 300 ng/ml Cannabinoid Scrn, Ur Negative Screen [facility] Suitable for medical purposes only. LAB Will not detect all drugs within class. Cutoff = 50 ng/ml Cocaine Metabolites, Negative Screen [facility] Ur Suitable for medical purposes only. LAB Will not detect all drugs within class. Cutoff = 300 ng/ml Opiate Scrn, Ur Negative Screen [facility] Suitable for medical purposes only. LAB Will not detect all drugs within class. Cutoff = 300 ng/ml Does not detect oxycodone, oxycontin or methadone. Specimen Performing Organization Address City/State/ZIP Code Phon e Number [facility] [address] [place] [address] SERVICES [facility] [address] [place] [address] documented in this encounter Visit Diagnoses Not on filedocumented in this encounter Care Teams Attenuator Relationship Specialty Start Date End Date Poly Godoy MD PCP - General 11/24/08 11/18/[address] [place] [phone] documented as of this encounter
--- OUTSIDE RECORDS SUMMARY | 2022-04-08 00:55 | XMS_ITS | Encounter Summary ---
:[address] [facility] Address [address] [place] [address] Care Team Providers Name Role Phone Poly Godoy MD Primary Care Provider Encounter Details Date Type Department Care Team Description 12/24/2008 Hospital Encounter [facility] [address] [place] [address] [address] [place] [phone] (Wo rk) Social History Tobacco Use Types Packs/Day Years Used Date Never Assessed Sex Assigned at Date Recorded Not on file documented as of this encounter Discharge Disposition Disposition Code Departure Means Destination Auto Discharge Home documented in this encounter Plan of Treatment Not on filedocumented as of this encounter Procedures Procedure Name Priority Date/Time Associated Comments Diagnosis CHLAMYDIA/N. Routine 01/19/2009 10:35 Results for this GONORRHOEAE AMPLIFIED EDT proced ure are in RNA the results section. URINE CHEMICAL (DIP) Routine 12/30/2008 15:44 Res ults for this & SEDIMENT (MICRO) EDT procedure are in WITHOUT REFLEX TO the result s CULTURE section. BACTERIAL CULTURE, Routine 12/30/2008 15:44 Resul ts for this URINE EDT procedure are i n the results section. PTT Routine 12/30/2008 15:36 Results for this EDT procedure are i n the results section. COMPLETE BLOOD COUNT Routine 12/30/2008 15:36 Res ults for this AND DIFFERENTIAL EDT procedure a re in the results section. COMPLETE BLOOD COUNT Routine 12/24/2008 15:36 Res ults for this EDT procedure are i n the results section. documented in this encounter Results CHLAMYDIA/GC AMPLIFIED (01/19/2009 10:35 EDT) Specimen Cervix [facility] Description LAB Result No Chlamydia [facility] trachomatis DNA LAB detected by production stage manager mediated amplification. Result No Neisseria [facility] gonorrhoeae DNA LAB detected by production stage manager mediated amplification. Specimen Other (qualifier value) Performing Organization Address City/[facility]/ZIP Code Phon e Number [facility] [address] [place] [address] SERVICES [facility] [address] [place] [address] BACTERIAL CULTURE, URINE (12/30/2008 15:44 EDT) Specimen Description Urine [facility] Result Less than 10,000 CFU/ml [facility] CACER[facility] Mixed gram positive growth Report Status Final [facility] 12/31/2008 Specimen Urine (substance) Performing Organization Address [facility]/ZIP [facility] Phon e Number [facility] [address] [place] [address] SERVICES [facility] [address] [place] [address] (ABNORMAL) UA WITH MICROSCOPIC (12/30/2008 15:44 EDT) Color, UA Red [facility] Clarity, UA Hazy [facility] Glucose, UA Neg NEG [facility] Bilirubin, UA Neg NEG [facility] Ketones, UA Neg NEG [facility] Specific Gile, 1.015 1.005 - 1.02 [facility] Urine LAB Blood, UA 3+ (A) NEG [facility] pH, UA 8.0 5.0 - 9.0 [facility] Protein, UA 1+ (A) NEG [facility] Urobilinogen, UA 0.2 0.2 - 1.0 [facility] mg/dL LAB Nitrite, UA Neg NEG [facility] Leuk Esterase 1+ (A) NEG [facility] WBC, UA 5 to 10 0 - 5 /HPF [facility] RBC, UA >50 0 - 5 /HPF [facility] Squam Epithel, UA Few (A) NS /HPF [facility] Renal Epithel, UA None seen NS /HPF [facility] Bacteria, UA None seen NS /HPF [facility] Crystals, UA None seen /HPF [facility] Hyaline Casts, UA None seen /LPF [facility] Comment Microscopic results [facility] are unreliable on LAB urines unrefrig >2hrs or refrig >8hrs. Specimen Urine (substance) Performing Organization Address City/[facility]/ZIP Code Phon e Number [facility] [address] [place] [address] SERVICES [facility] [address] [place] [address] PTT (12/30/2008 15:36 EDT) Pathologist Sig nature PTT 32Comment: 20 - 35 secs [facility] Therapeutic Heparin range: 60-100 seconds Specimen Blood specimen (specimen) Performing Organization Address City/[facility]/ZIP Code Phon e Number [facility] [address] [place] [address] SERVICES [facility] [address] [place] [address] (ABNORMAL) HEMAGRAM AND DIFFERENTIAL (12/30/2008 15:36 EDT) Pathologist Sig nature WBC 7.53 4.0 - 12.4 K/cmm [facility] RBC 4.26 3.86 - 5.04 M/cmm [facility] Hemoglobin 12.8 11.6 - 15.2 gm/dl [facility] HCT 36.8 34.9 - 44.4 % [facility] MCV 86 81 - 98 fl [facility] MCH 30.1 26.7 - 33.3 pg [facility] MCHC 34.8 32.1 - 35.9 gm/dl [facility] PLT 272 141 - 320 K/cmm [facility] RDW-CV 13.9 11.7 - 14.6 % [facility] Neutrophils 45.5 45.5 - 79.7 % [facility] Lymphocytes 37.8 15.0 - 46.8 % [facility] Monocytes 5.8 1.8 - 12.0 % [facility] Eosinophils 8.6 (H) 0.6 - 6.9 % [facility] Basophils 2.3 (H) 0.2 - 1.4 % [facility] ABS Neutrophils 3.43 2.20 - 8.85 K/cmm [facility] ABS Lymphs 2.84 1.09 - 3.30 K/cmm [facility] ABS Monocytes 0.44 0.1 - 0.8 K/cmm [facility] ABS Eosinophils 0.65 (H) 0.03 - 0.61 K/cmm [facility] ABS Basophils 0.17 (H) 0.01 - 0.11 K/cmm [facility] Type of Diff: Automated [facility] Specimen Blood specimen (specimen) Performing Organization Address City/[facility] Phon e Number [facility] [address] [place] [address] SERVICES [facility] [address] [place] [address] (ABNORMAL) HEMAGRAM (12/24/2008 15:36 EDT) Pathologist Sig nature WBC 8.07 4.0 - 12.4 K/cmm [facility] RBC 4.52 3.86 - 5.04 M/cmm [facility] Hemoglobin 13.5 11.6 - 15.2 gm/dl [facility] HCT 39.4 34.9 - 44.4 % [facility] MCV 87 81 - 98 fl [facility] MCH 29.9 26.7 - 33.3 pg [facility] MCHC 34.3 32.1 - 35.9 gm/dl [facility] PLT 336 (H) 141 - 320 K/cmm [facility] RDW-CV 13.7 11.7 - 14.6 % [facility] Specimen Performing Organization Address [facility] Phon e Number [facility] [address] [place] [address] SERVICES [facility] [address] [place] [address] documented in this encounter Visit Diagnoses Not on filedocumented in this encounter Care Teams Airframe And Powerplant Mechanic Relationship Specialty Start Date End Date Poly Godoy MD PCP - General 11/24/08 11/18/[address] [place] [phone] documented as of this encounter
--- OUTSIDE RECORDS SUMMARY | 2022-04-08 00:55 | XMS_ITS | Encounter Summary ---
:1980 Author Organization [facility] Address [address] [place] [address] Care Team Providers Name Role Phone Aravind Sanz MD Primary Care Provider Encounter Details Date Type Department Care Team Description 06/17/2015 Hospital Encounter [facility]- Natalie Unknown, Provider, [facility] [address] [facility] [phone] [place] [address] (Work) [phone] Social History Tobacco Use Types Packs/Day Years [...] Code Departure Means Destination Home or Self [facility] documented in this encounter Plan of Treatment Not on filedocumented as of this encounter Visit Diagnoses Not on filedocumented in this encounter Care Teams Power Plant Operator Relationship Specialty Start Date End Date Aravind Sanz MD PCP - General 11/19/10 06/20/[address] [place] [phone] documented as of this encounter
--- OUTSIDE RECORDS SUMMARY | 2022-04-08 00:55 | XMS_ITS | Encounter Summary ---
:1980 Author Organization [facility] Address [address] [place] [address] Care Team Providers Name Role Phone Poly Godoy MD Primary Care Provider Encounter Details Date Type Department Care Team Description 10/17/2008 Before PRISM [facility], Converted Visit [facility] - ([place]) [place] [address] Medical Office [phone] [facility], [address] [place] [phone] (Wo rk) Social History Tobacco Use Types Packs/Day Years Used Date Never Assessed Sex Assigned at Date Recorded Not on file documented as of this encounter Plan of Treatment Not on filedocumented as of this encounter Procedures Procedure Name Priority Date/Time Associated Comments Diagnosis CHLAMYDIA/N. Routine 10/17/2008 20:56 Results for this GONORRHOEAE AMPLIFIED EDT proced ure are in RNA the results section. documented in this encounter Results CHLAMYDIA/GC AMPLIFIED (10/17/2008 20:56 EDT) Specimen Cervix [facility] Description LAB Result No Chlamydia [facility] trachomatis DNA LAB detected by international specialist mediated amplification. Result No Neisseria [facility] gonorrhoeae DNA LAB detected by international specialist mediated amplification. Specimen Performing Organization Address City/State/ZIP Code Phon e Number [facility] [address] [place] [address] SERVICES [facility] [address] [place] [address] documented in this encounter Visit Diagnoses Not on filedocumented in this encounter Care Teams Food Dehydrator Operator Relationship Specialty Start Date End Date Poly Godoy MD PCP - General 11/24/08 11/18/[address] [place] [phone] documented as of this encounter
--- OUTSIDE RECORDS SUMMARY | 2022-04-08 00:55 | XMS_ITS | Encounter Summary ---
:1980 Author Organization Address [address] [place] [address] Care Team Providers Name Role Phone Poly Godoy MD Primary Care Provider Encounter Details Date Type Department Care Team Description 10/06/2009 Abstract [facility] Ziggy Box ; Orthopedics & MD Patel Pain in thoracic spine [facility] - [address] [place] [address], [address] [place] [phone] [place], [place] 05 [facility] [phone] Social History Tobacco Use Types Packs/Day Years Used Date Current Every Day Smoker 0.25 Alcohol Use Standard Drinks/Week Comments No 0 (1 standard drink = 0.6 oz pure alcoho l) Sex Assigned at Date Recorded Not on file documented as of this encounter Plan of Treatment Not on filedocumented as of this encounter Visit Diagnoses Diagnosis Lumbago Pain in thoracic spine documented in this encounter Historical Medications This list may reflect changes made after this encounter. Medication Sig Dispensed Refills Start Date End Date acetaminophen (TYLENOL) Take by mouth as 0 500 mg tablet needed for Pain. baclofen (LIORESAL) 10 mg Take 10 mg by mouth 0 08/20/2010 tablet 3 times daily. added in this encounter Care Teams Foreign Food Specialty Cook Relationship Specialty Start Date End Date Poly Godoy MD PCP - General 11/24/08 11/18/[address] [place] [address] 1 [place] [phone] documented as of this encounter
--- OUTSIDE RECORDS SUMMARY | 2022-04-08 00:55 | XMS_ITS | Encounter Summary ---
:1980 Author Organization [facility] Address [address] [place] [address] Care Team Providers Name Role Phone Aravind Sanz MD Primary Care Provider Encounter Details Date Type Department Care Team Description 09/01/2014 Results Only [facility] Rafaela Maldonado, ILYA Laboratory Services - [address] [place] [address] [address] [place] [address] [place] [phone] Social History Tobacco Use Types Packs/Day Years Used Date Current Every Day Smoker 0.25 Alcohol Use Standard Drinks/Week Comments No 0 (1 standard drink = 0.6 oz pure alcoho l) Sex Assigned at Date Recorded Not on file documented as of this encounter Plan of Treatment Not on filedocumented as of this encounter Procedures Procedure Name Priority Date/Time Associated Diagnosis Comme nts PAP TEST- RESULT Routine 09/01/2014 0:00 EST Resu lts for this ONLY procedure are i n the results section. documented in this encounter Results PAP TEST- RESULT ONLY (09/01/2014 0:00 EST) Pathology Report: CYTOPATHOLOGY REPORT [facility] Reports generated via electronic interface contain sammy ginal data; SERVICES however they are lacking the format of the original re port. Caution should be taken when reading/interpreting unfo rmatted reports. Name: ? GÉNESIS DURON ? Accession #: ? [id number] ? : ? 1980 (Age: 33) ??F ?Collect Da te: ? 09/01/2014 ? Location: ? [facility] ? Receive Date: ? 015 ? Provider: JOLENE MALDONADO NP Copy to: ? Final Report SPECIMEN ADEQUACY ? Satisfactory for Evaluation - transformation zone component present GENERAL CATEGORIZATION ? Negative for Intraepithelial Lesion or Malignan cy INTERPRETATION ? Reactive cellular fang nges associated with inflammation present (includes repair). Shift in [place] present suggestive of bacterial vaginos is. Last Menstrual Period: 08/26/14 Specimen/Source: ??Pap Test, Cervix/Endocervix, ThinPr ep Imaging System with manual evaluation Document reviewed and electronically signed by: ? SHARRI NICOLE MD ? Report ??Date: 09/12/2014 13:02 HPV with Pap Test ? Date Ordered: ? 09/12/2014 ? Status: ?? Signed Out ?Date Complete: ? 09/15/2014 ? By: ??S ystem Interface ? Date Reported: ? 09/15/2014 ? Interpretation RESULT: Negative for HPV. No E6 or E7 mRNA is detected from HPV types 16,18,31,3 3,35, 39,45,51,52,56,58,59,66, and 68 by m48/m60 tank driver media briana amplification. Comments Document reviewed and electronically signed by: ? System Interface ? Report date: 09/15/2014 By the signature above, the attending physician certif ies that he/she has personally conducted a gross and/or microscopic examin ation of the described specimens and rendered or confirmed the above diagnosi s. End of Report Specimen Performing Organization Address City/State/ZIP Code Phon e Number [facility] [address] [place] [address] SERVICES documented in this encounter Visit Diagnoses Not on filedocumented in this encounter Care Teams Key Account Executive Relationship Specialty Start Date End Date Aravind Sanz MD PCP - General 11/19/10 06/20/[address] [place] [phone] documented as of this encounter
--- OUTSIDE RECORDS SUMMARY | 2022-04-08 00:55 | XMS_ITS | Encounter Summary ---
:1980 Author Organization [facility] Address [address] [place] [address] Care Team Providers Name Role Phone Unavailable Primary Care Provider Unavailable Encounter Details Date Type Department Care Team Description 10/09/2008 Hospital Encounter [facility] Kishan Haile MD [facility] [address] [facility] [address] [place] [address] [place] [phone] (Wo rk) Social History Tobacco Use Types Packs/Day Years Used Date Never Assessed Sex Assigned at Date Recorded Not on file documented as of this encounter Discharge Disposition Disposition Code Departure Means Destination Home or Self Care documented in this encounter Plan of Treatment Not on filedocumented as of this encounter Visit Diagnoses Not on filedocumented in this encounter
--- OUTSIDE RECORDS SUMMARY | 2022-04-08 00:55 | XMS_ITS | Encounter Summary ---
:1980 Author Organization [facility] Address [address] [place] [address] Care Team Providers Name Role Phone Sridevi Molina MD Primary Care Provider Encounter Details Date Type Department Care Team Description 01/08/2010 Results Only [facility] Sridevi Molina MD Laboratory Services - [address] [place] [phone] [place] [address] [phone] Social History Tobacco Use Types Packs/Day Years Used Date Current Every Day Smoker 0.25 Alcohol Use Standard Drinks/Week Comments No 0 (1 standard drink = 0.6 oz pure alcoho l) Sex Assigned at Date Recorded Not on file documented as of this encounter Plan of Treatment Not on filedocumented as of this encounter Procedures Procedure Name Priority Date/Time Associated Diagnosis Comme [facility] SURGICAL PATHOLOGY Routine 01/08/2010 0:00 EDT Re sults for this procedure are i n the results section. documented in this encounter Results SURGICAL PATHOLOGY (01/08/2010 0:00 EDT) Pathology Report: SURGICAL PATHOLOGY REPORT ? [facility] Reports generated via Destination Media interface contain original data; ? LAB however they are lacking the format of the original report. ? Caution should be taken when reading/interpreting unformatted reports. ? Name: ? LINDSAY, ALLEXIS A S ? Accession #: ? [id number] ? : ? 1980 (Age: 29) ??F ? Collec t Date: ? 01/08/2010 ? Location: ? [facility] ? R eceive Date: ? 01/11/2010 ? Provider: SRIDEVI MOLINA MD ? Copy to: ? Final Pathologic Diagnosis: ? Labia, left, biopsy: ? - Verruca vulgaris. ??See co mment. ? Comment: ? Auction Assistant sectio ns of this case have been reviewed at ? intradepartmental consultati on conference. ??(Dr. Ortiz)/kmm ? Document reviewed and electr onically signed by: ? LINDA CAMPBELL MD ? Report ??Date: 01/14/2010 18 :52 ? By the signature above, the attending physician certifies that he/she has ? personally conducted a gross and/or microscopic examination of the described ? specimens and rendered or co nfirmed the above diagnosis. ? Specimen(s) Received: ? Punch biopsy L labia ? Clinical History: ? Verrucous lesion L la amina ? Gross Description: ? Received in formalin labelled Bernadino, Yana and punch biopsy L ? labia is a punch biopsy of a hui-white crusted papule measuring 0.3 cm in ? diameter and 0.5 cm in thick ness. ??The specimen is submitted entirely in one ? cassette. ??(A. Beckett)/mms ? End of Report ? Specimen Performing Organization Address City/State/ZIP Code Phon e Number [facility] [address] [place] [address] SERVICES [facility] [address] [place] [address] documented in this encounter Visit Diagnoses Not on filedocumented in this encounter Care Teams Mail Clerk Bills Relationship Specialty Start Date End Date Sridevi Molina MD PCP - General 11/24/08 11/18/[address] [place] [phone] documented as of this encounter
--- OUTSIDE RECORDS SUMMARY | 2022-04-08 00:55 | XMS_ITS | Clinical Summary ---
:1980 Author Organization [facility] Address [address] [place] [address] Care Team Providers Name Role Phone Poly Godoy MD Primary Care Provider Allergies Active Allergy Reactions Severity Noted Date Comments Amoxicillin-Pot Hives 04/08/2009 Went to ER Clavulanate Azithromycin Other (See Comments) 12/08/2008 ABDOMIN AL CRAMPS AND PAIN Other - See Comments 10/06/2009 Apples ,nuts Medications Medication Sig Dispensed Refills Start Date End Date Status buprenorphine-naloxone Place 16 mg 0 Active (SUBOXONE) 2-0.5 mg Subl under the tongue daily. acetaminophen (TYLENOL) Take by mouth 0 Active 500 mg tablet as needed for Pain. lisdexamfetamine Take 40 mg by 0 Active (VYVANSE) 40 mg capsule mouth daily. aspirin 81 mg EC tablet Take 81 mg by 0 Active mouth daily. 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 Overview: ICD10 Update Auto Replacement Abdominal pain 05/15/2009 Encounters Date Type Specialty Care Team Description 03/28/2022 Lab Requisition Clinical Laboratory Eli Sena ounter for other E, BOOK TRIMMER general examina tion from Last 3 Months Surgical History Surgery Date Site/Laterality Comments ORTHOPEDIC SURGERY Juice gordon back BACK SURGERY 1994 [facility] Medical History Medical History Date Comments Thrombosis vein 12/08/08 Deep vein thrombosis (DVT) ([facility] ([facility]) December 08, 2008 Right groin thrombosis Scoliosis Social History Tobacco Use Types Packs/Day Years Used Date Current Every Day Smoker 0.25 Alcohol Use Standard Drinks/Week Comments No 0 (1 standard drink = 0.6 oz pure alcoho l) Sex Assigned at Date Recorded Not on file Last Filed Vital Signs Vital Sign Reading Time Taken Comments Blood Pressure 102/69 11/19/2010 1105 EDT Pulse 65 11/19/2010 1105 EDT Temperature 36 ??C (96.8 ??F) 11/19/2010 1105 EDT Respiratory Rate 16 11/19/2010 1105 EDT Oxygen Saturation 94% 02/19/2009 0948 EDT Inhaled Oxygen Concentration - - Weight 63.9 kg (140 lb 12.8 oz) 11/19/2010 1105 EDT Height - - Body Mass Index - - Plan of Treatment Health Maintenance Due Date Last Done Comments COVID-19 Vaccine (#1) 05/16/1982 Hepatitis C Screen Completed 11/17/2021, 12/10/2008 Procedures Procedure Name Priority Date/Time Associated Comments Diagnosis PAP TEST Today 03/25/2022 10:25 Encounter for other Resu lts for this EDT general examination procedur e are in the results section. HUMAN PAPILLOMAVIRUS Today 03/25/2022 10:25 Encounter for ot her Results for this (HPV) DETECTION-HIGH EDT general examination procedure are in RISK TYPES the results section. from Last 3 Months Results PAP TEST (03/25/2022 10:25 EDT) Specimens A. Cervix and/or [facility] Endocervix , ThinPrep CENTER Imaging System with LABORATORY Manual Evaluation SERVICES Specimen Adequacy Satisfactory for [facility] Evaluation - CENTER transformation zone LABORATORY component present SERVICES General Negative for [facility] Categorization intraepithelial CENTER lesion or malignancy LABORATORY SERVICES Descriptive Shift in [place] [facility] Diagnosis present suggestive of CENTER bacterial vaginosis. LABORATORY SERVICES Attestation . [facility] Electronically CENTER signed by TIMBO Jin CT(ASC P) SERVICES on 04/06/2022 at 2008 Clinical History See below [facility] CENTER LABORATORY SERVICES HPV The result for the Human Pap illomavirus (HPV) Detection-High Risk Types is Positive . E6 OR E7 mRNA from one or more types of HPV types 16,18,31,33,35,39,45,51,52,56,58,59,66, and 68 is detected by james [facility] scription mediated amplifica tion. High and intermediate risk HPV types are associated with most squamous intraepithelial lesions and cervical cancers. Testing was performed on specimen [id number] and CENTER was resulted on 04/06/20222005 EDT by SERENE, LAB INSTRUMENT RESULTS IN LABORATORY SERVICES Performing Lab [facility] SERVICES Scanned Images [facility] SERVICES Specimen Pap Test - Cervix and/or Endocervix Performing Organization Address City/State/ZIP Code Phon e Number [facility] [address] [place] [address] SERVICES (ABNORMAL) HUMAN PAPILLOMAVIRUS (HPV) DETECTION-HIGH RISK TYPES (03/25/2022 10:25 EDT) Human Papillomavirus Positive (A)Comment: Negative [facility] (HPV) Detection-High E6 OR E7 mRNA from CENTER Types one or more types of LABORATORY HPV types SERVICES 16,18,31,33,35,39,45, 51,52,56,58,59,66, and 68 is detected by payroll and benefits coordinator mediated amplification. High and intermediate risk HPV types are associated with most squamous intraepithelial lesions and cervical cancers. Specimen Pap Test - Cervix and/or Endocervix Performing Organization Address City/State/ZIP Code Phon e Number [facility] [address] [place] [address] SERVICES from Last 3 Months Insurance Payer Benefit Plan / Subscriber ID Effective Phone Address T ype Group Dates [place]ID [id number] 2021-Prese [address] Medicaid [place] [facility] [id number] Care Teams Postbed Stitcher Relationship Specialty Start Date End Date Poly Godoy MD PCP - General 06/21/[address] [phone] (work)
--- OUTSIDE RECORDS SUMMARY | 2022-04-08 00:55 | XMS_ITS | Encounter Summary ---
:1980 Author Organization [facility] Address [address] [place] [address] Care Team Providers Name Role Phone Poly Molina MD Primary Care Provider Reason for Visit Reason Comments Abdominal Pain Pt to the emergency deparmen t with generalized abd pain that started approx 1/2 hour prior to arr ival. Pain is cramping in nature. Pt ate several hours prior to onset of pain. Nausea, no vomiting. Encounter Details Date Type Department Care Team Description 01/21/2009 Emergency [facility] Pancho Hernandez MD [address] [place] [address], [address] [place] [address] Acute Gastritis Emergency Department - Emergency, [place] [address] [address] Social History Tobacco Use Types Packs/Day Years Used Date Current Every Day Smoker 1 Alcohol Use Standard Drinks/Week Comments No 0 (1 standard drink = 0.6 oz pure alcoho l) Sex Assigned at Date Recorded Not on file documented as of this encounter Last Filed Vital Signs Vital Sign Reading Time Taken Comments Blood Pressure 104/74 01/21/2009 1726 EDT Pulse 106 01/21/2009 1726 EDT Temperature 36.2 ??C (97.2 ??F) 01/21/2009 1726 EDT Respiratory Rate 16 01/21/2009 1726 EDT Oxygen Saturation - - Inhaled Oxygen Concentration - - Weight - - Height - - Body Mass Index - - documented in this encounter Discharge Instructions John Fuentes MD - 01/21/2009 AttachmentsThe following attachments cannot be sent through Care Everywhere. Gastritis: After Your Visitdocumented in this encounter Medications at Time of Discharge Medication Sig Dispensed Refills Start Date End Date amoxicillin-clavulanate Take 1 Tab by mouth 28 0 07/200901/30/2009 (AUGMENTIN) 875-125 mg per every 12 hours. tablet docusate sodium (COLACE) Take 100 mg by 0 08/20/2010 100 mg capsule mouth 2 times daily. folic acid (FOLVITE) 1 mg Take 1 mg by mouth 0 08/20/2010 tablet daily. metronidazole (FLAGYL) 250 Take 250 mg by 0 04/08/2009 mg tablet mouth 3 times daily. MULTIVITAMINS (CHEWABLE Take by mouth. 0 08/20/2010 MULTI VITAMIN ORAL) NONFORMULARY MEDICATION Lovonox 40mg sc bid 0 08/20/2010 NONFORMULARY MEDICATION Sebutex 80mg qd 0 08/20/2010 documented as of this encounter Discharge Disposition Disposition Code Departure Means Destination Home or Self Care documented in this encounter ED Notes John Hernandez MD - 01/21/2009 1821 EDT Chief Complaint Patient presents with ??? Abdominal Pain Pt to the emergency deparment with generalized abd pain that started approx 1/2 hour prior to arrival. Pain is cramping in nature. Pt ate several hours prior to onset of pain. Nausea, no vomiting. Patient is a 28 y.o. female presenting with abdominal pain. The history is provided by the patient. Abdominal Pain This is a new problem. The current episode started 1 to 2 hours ago. The problem has been gradually improving. The pain is associated with an unknown factor. The pain is located in the epigastric region. The pain is moderate. Associated symptoms include nausea and vomiting. Pertinent negatives includeno fever, no diarrhea, no constipation, no dysuria, no frequency and no headaches. Nothing worsens the symptoms. Nothing relieves the symptoms. Review of Systems Constitutional: Negative for fever and chills. HENT: Negative for neck stiffness. Eyes: Negative for visual disturbance. Respiratory: Negative for shortness of breath. Cardiovascular: Negative for chest pain. Gastrointestinal: Positive for nausea, vomiting and abdominal pain. Negative for diarrhea, constipation, blood in stool, abdominal distention and anal bleeding. Genitourinary: Negative for dysuria and frequency. Musculoskeletal: Negative for back pain. Skin: Negative for rash. Neurological: Negative for headaches. Psychiatric/Behavioral: Negative for confusion. All other systems reviewed and are negative. Past Medical History Diagnosis Date ??? 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 Orthopedic surgery Bose rods back Allergies Allergen Reactions ??? Azithromycin History Substance Use Topics ??? Tobacco Use: Yes -- 1.0 packs/day ??? Alcohol Use: No No family history on file. BP 104/74 Pulse 106 Temp(Src) 36.2 ??C (97.2 ??F) (Tympanic) Resp 16 LMP 01/14/2009 Physical Exam Nursing note and vitals reviewed. Constitutional: She appears well-developed and well-nourished. HENT: Head: Normocephalic and atraumatic. Right Ear: External ear normal. Left Ear: External ear normal. Nose: Nose normal. Eyes: Pupils are equal, round, and reactive to light. Right eye exhibits no discharge. Left eye exhibits no discharge. Neck: Normal range of motion. Neck supple. No tracheal deviation present. Cardiovascular: Normal rate, regular rhythm and normal heart sounds. Pulmonary/Chest: Breath sounds normal. No respiratory distress. Abdominal: Soft. Bowel sounds are normal. No tenderness. She has no rebound and no guarding. Musculoskeletal: Normal range of motion. Neurological: She is alert. She has normal strength. No sensory deficit. Skin: No rash noted. Psychiatric: She has a normal mood and affect. Radiology orders: None Procedures Consult orders: None ED Course: Feeling better. Taking PO. Cramps resolved. Still mild nausea. No pain to palp at this time. MDM Number of Diagnoses and Management Options Acute Gastritis: Amount and/or Complexity of Data Reviewed Clinical lab tests: ordered and reviewed Decide to obtain previous medical records or to obtain history from someone other than the patient: yes Review and summarize past medical records: yes Risk of Complications, Morbidity, and/or Mortality Presenting problems: moderate Diagnostic procedures: moderate Management options: moderate Patient Progress Patient progress: stable Encounter Diagnoses Code Name Primary? Qualifier ??? 535.00E Acute Gastritis PCP: POLY MOLINA APRN 01/22/2009 2:43 PM oNaveen rogel - 01/21/2009 1748 EDT TCALL: YANA DURON [address] [facility] REFERS PT TO ED FOR EVAL. CC: STOMACH CRAMPS. documented in this encounter Miscellaneous Notes Scanned Note-Null - Inpatient, PhysicianMD - 01/22/2009 0815 EDT documented in this encounter Plan of Treatment Pending Results Name Type Priority Associated Diagnoses Date/Ti me POCT URINE DIPSTICK Point of Care STAT 009 20:22 Testing EDT POCT URINE Point of Care STAT 2008 20:25 TEST Testing EDT documented as of this encounter Procedures Procedure Name Priority Date/Time Associated Diagnosis Comme nts LIPASE STAT 01/21/2009 18:20 Results for this EDT procedure are i n the results section. HEPATIC FUNCTION STAT 01/21/2009 18:20 Results for this PANEL (ALB,ALK EDT procedure are in PHOS,ALT,AST,DBIL,T the resu lts OT STAN,TOT PROT) section. documented in this encounter Results LIPASE (01/21/2009 18:20 EDT) Pathologist Sig nature Lipase 26 0 - 250 U/L [facility] Specimen Blood specimen (specimen) Performing Organization Address City/State/ZIP Code Phon e Number [facility] [address] [place] [address] SERVICES [facility] [address] [place] [address] LIVER FUNCTION TESTS (01/21/2009 18:20 EDT) Pathologist Sig nature Albumin 4.0 3.4 - 4.9 g/dl [facility] Total Protein 6.6 6.5 - 8.3 g/dl [facility] Alkaline Phosphatase 53 38 - 126 U/L [facility] ALT 24 9 - 52 U/L [facility] AST 32 15 - 46 U/L [facility] Unconjugated Bilirubin 0.6 0.1 - 1.1 mg/dl [facility] Conjugated Bilirubin 0.0 0.0 - 0.3 mg/dl [facility] Bilirubin, Total 0.6 0.2 - 1.3 mg/dl [facility] Specimen Blood specimen (specimen) Performing Organization Address City/State/ZIP Code Phon e Number [facility] [address] [place] [address] SERVICES [facility] [address] [place] [address] documented in this encounter Visit Diagnoses Diagnosis Acute gastritis Acute gastritis without mention of hemor rhage documented in this encounter Administered Medications Inactive Administered Medications - up to 3 most recent administrations Medication Order MAR Action Action Date Dose Rate Site famotidine (PEPCID) 20 mg/2 mL Given 01/21/2009 19:00 EDT 20 mg injection 20 mg 20 mg, intravenous, NOW X1, 1 dose, On Mon01/21/09 at 1845, STAT ondansetron (PF) (ZOFRAN) 4 mg/2 mL injection 4 Given 2008 19:00 EDT 4 mg mg 4 mg, intravenous, NOW X1, 1 dose, On Mon01/21/09 at 1845, STAT ondansetron (PF) (ZOFRAN) 4 mg/2 mL injection 4 Given 2008 19:48 EDT 4 mg mg 4 mg, intravenous, NOW X1, 1 dose, On Mon01/21/09 at 2000, STAT ondansetron (ZOFRAN-ODT) disintegrating tablet 4 Given 01/21/2009 20:48 EDT 8 mg mg 4 mg, oral, EVERY 6 HOURS PRN, 3 doses, Starting on Mon01/21/09 at 2031, Until Mon01/21/09 at 2249, Nausea, STAT sodium chloride 0.9 % 1,000 mL BOLUS Given 01/21/2009 19:00 EDT 1,000 mL 1,000 mL, intravenous, Once (NO Time Specified), 1 dose, Starting on Mon01/21/09 at 1845, Until Mon01/21/09 at 1900, STAT documented in this encounter Historical Medications This list may reflect changes made after this encounter. Medication Sig Dispensed Refills Start Date End Date metronidazole (FLAGYL) 250 Take 250 mg by 0 04/08/2009 mg tablet mouth 3 times daily. added in this encounter Active and Recently Administered Medications Times are shown in EDT. Scheduled Medication Order 01/19/2009 01/20/2009 01/21/2009 famotidine (PEPCID) 20 mg/2 mL injection 20 mg (COMPLETED) 190 (Given - Provider: Torsten Sparrow) 20 mg, Intravenous, NOW X1, 1 dose, Mon01/21/09 at 1845 ondansetron (PF) (ZOFRAN) 4 mg/2 mL injection 4 mg (COMPLETED) 190 (Given - Provider: Torsten Sparrow) 4 mg, Intravenous, NOW X1, 1 dose, Mon01/21/09 at 1845 ondansetron (PF) (ZOFRAN) 4 mg/2 mL injection 4 mg (COMPLETED) 194 (Given - Provider: Margarita Dimas) 4 mg, Intravenous, NOW X1, 1 dose, Mon01/21/09 at 2000 sodium chloride 0.9 % 1,000 mL BOLUS (COMPLETED) 190 (Given - Provider: Torsten Sparrow) 1,000 mL, Intravenous, ONCE, 1 dose, First dose on Mon01/21/09 a t 1845 PRN Medication Order 01/19/2009 01/20/2009 01/21/2009 ondansetron (ZOFRAN-ODT) disintegrating tablet 4 mg (CANCELED) 2047 (Given - Provider: Margarita Dimas) 4 mg, Oral, EVERY 6 HOURS PRN, 3 doses, Starting Mon01/21/09 at 2031, Until Mon01/21/09 at 2249 documented in this encounter Orders Diet Count Last Ordered Date First Ordered Date DIET NPO TIME SPECIFIED 01/21/2009 documented in this encounter Care Teams Buttermaker Continuous Churn Relationship Specialty Start Date End Date Poly Molina MD PCP - General 11/24/08 11/18/[address] [place] [phone] documented as of this encounter
--- OUTSIDE RECORDS SUMMARY | 2022-04-08 00:55 | XMS_ITS | Encounter Summary ---
:1980 Author Organization [facility] Address [address] [place] [address] Care Team Providers Name Role Phone Poly Godoy MD Primary Care Provider Encounter Details Date Type Department Care Team Description 05/21/2009 Abstract Used for ABSTRACTING Data Poly Godoy MD [phone] [facility] [address] [place] [address] (Wo rk) Social History Tobacco Use Types [...] on filedocumented in this encounter Care Teams Underground Mine Machinery Mechanic Relationship Specialty Start Date End Date Poly Godoy MD PCP - General 11/24/08 11/18/10 [address] [place] [address] documented as of this encounter
--- OUTSIDE RECORDS SUMMARY | 2022-04-08 00:55 | XMS_ITS | Encounter Summary ---
:1980 Author Organization [facility] Address [address] [place] [address] Care Team Providers Name Role Phone Poly Godoy MD Primary Care Provider Encounter Details Date Type Department Care Team Description 02/04/2009 Hospital Encounter [facility] Hematology & Oncology - [address] [place], [place] [address] [facility] [phone] [place], [place] [address] [phone] Social History Tobacco Use Types Packs/Day Years Used Date Current Every Day Smoker 1 Alcohol Use Standard Drinks/Week Comments No 0 (1 standard drink = 0.6 oz pure alcoho l) Sex Assigned at Date Recorded Not on file documented as of this encounter Medications at Time of Discharge Medication Sig Dispensed Refills Start Date End Date docusate sodium (COLACE) Take 100 mg by [...] Code Departure Means Destination Home or Self Custodial documented in this encounter Progress Notes Ricardo Mai Aprn, NP - 02/04/2009 0000 EDT DIVISION OF HEMATOLOGY / ONCOLOGY PROGRESS/FOLLOWUP NOTE - 02/04/2009 PURPOSE OF VISIT Ongoing management of hypercoagulable syndrome as manifested with a superficial DVT in a setting, December 2008. MEDICAL PROBLEM LIST 1. Hypercoagulable syndrome. a. 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 b. Started on Lovenox, initially 40 mg q.12 h. and then increased to 80 mg q.12 h. 2. Polysubstance abuse. 3. Asthma. 4. Tobacco. 5. Scoliosis repair with Bose rods at age 14. HISTORY OF PRESENT ILLNESS Ms Duron is a 28-year-old female, , who gave via section on December 08, 2008. Ms Duron describes a history of intermittent leg swelling over two months prior to her , although she had attributed this to being . During this , she also experienced a 50-pound weight gain. An ultrasound was performed on November 10, 2008, which was negative for any deep vein thrombosis in either leg. Approximately two days after giving , the patient described pain in her upper right leg as sharp and cramping. She underwent an ultrasound, which confirmed a superficial DVTin the right thigh. She was initially started on Lovenox 40 mg subcutaneously b.i.d. The goal was to treat this for about eight weeks at a therapeutic dosing. On December 30, 2008, the patient was seen emergently secondary to concerns for bleeding. Her Lovenox dosing was reduced back down to 40 mg subcutaneously. Blood work at that time showed a hematocrit of 36.8, hemoglobin at 12.8. The patient was also worked up for urinary tract infection, which was negative. She returned to her full dosing. Ms Duron presents to the clinic this afternoon at the near completion of her treatment. Ms Duron states overall feeling well. She is tolerating injections well. No unusual bruising or hematomas. Her menstrual cycle has returned; she had her first one on the -january. Shedescribed this as quite heavy, although it did stop within the usual timeframe for her. Her energy level is slowly returning. She is trying to return to her normal weight. Ms Duron states that her legs are without discomfort, and she can no longer feel any ???hardness?? in her veins. ALLERGIES ERYTHROMYCIN CAUSES CRAMPING AND ABDOMINAL PAIN. The patient denies allergies to food or latex. MEDICATIONS 1. Subutex 8 mg sublingual once per day. 2. Lovenox 80 mg b.i.d. 3. Folic acid 1 mg daily. 4. Multivitamin tab one daily. 5. Colace p.r.n. 6. Flagyl b.i.d. PHYSICAL EXAM Temperature today is 35.9, heart rate 72, blood pressure 102/68, respirations 16. Weight this afternoon is 79.6 kg. General: A well-developed, well-nourished, young female in no apparent distress. ECOG status 0. Head, ears, eyes, nose and throat: The patient is normocephalic. Ocular movements are intact. The sclerae are clear. Conjunctivae are pink. Oropharynx is moist and intact. The tongue is midline. The patients lungs are clear to auscultation in all tyson. No wheezes, rales or rhonchi. Cardiac: S1, S2 with a regular rate and rhythm. No gallop, rub or murmur. The abdomen is mildly distended secondary to . There are small scattered minute hematomas secondary to Lovenox injections. The upper right thigh is no longer tender to palpation. No palpable cords. Lower extremities are erythematous in appearance. There is no tenderness to palpation of the calves or popliteal area. No cyanosis. No varicosities. No skin breakdown. LABORATORY DATA From January 16, 2009: White count is 7.17. Hemoglobin is 14.3. Hematocrit is 41.1. Platelets are 245. Sodium 142, potassium 4.0, chloride 103, CO2 29. Total bilirubin is less than 0.5. AST 24, ALT 20. Creatinine is 0.63. Glomerular filtration rate is greater than 60. Calcium is 9.0. ASSESSMENT/PLAN Ms Duron is a 28-year-old female, , with an upper right superficial deep vein thrombosis (DVT) in the setting of day two . Treatment was initially started on December 10, 2008, and Ms Duron has now completed approximately eight weeks of treatment . At this time, she will use t he remaining three doses of her Lovenox and than discontinue treatment. Because this was a provoked incidence, two days , no further testing will be done at this time. Ms Duron was encouraged to remain active and to continue to try to return to her normal baseline weight of 160 pounds. She is currently approximately 175 pounds. She was asked to do this over the next three to six months. Regarding contraceptives, her significant other has had a vasectomy. Ms Durno was advised, if she travels long distances in the future, to not sit for more than a few hours without getting up out of the car and walking around. She was also encouraged to call this office with any elective surgery; or, in the event that she would be hospitalized, to let the providing physician know that she has hadDVT in the setting of . We will see Ms Duron on a p.r.n. basis. Electronically Signed by Ricardo Mai APRN 02/16/2009 10:49 Dictated by: Ricardo Mai APRN - Ricardo Mai APRN A - RF Job ID: [id number] Document ID: [id number] cc: Rocael Manley MD,PhD MD Estelle Hester MD documented in this encounter Plan of Treatment Not on filedocumented as of this encounter Procedures Procedure Name Priority Date/Time Associated Comments Diagnosis CHLAMYDIA/N. Routine 05/12/2009 9:30 Results for this GONORRHOEAE AMPLIFIED EDT proced ure are in RNA, URINE the results section. BACTERIAL CULTURE, Routine 05/12/2009 9:30 Result s for this URINE EDT procedure are i n the results section. CHLAMYDIA/N. Routine 05/12/2009 9:29 Results for this GONORRHOEAE AMPLIFIED EDT proced ure are in RNA the results section. CYTOPATHOLOGY Routine 05/12/2009 0:00 Results for this EDT procedure are i n the results section. documented in this encounter Results CHLAMYDIA/GC AMPLIFIED, URINE (05/12/2009 9:30 EDT) Specimen Urine [facility] Description LAB Result No Chlamydia [facility] trachomatis DNA LAB detected by manager federal mediated amplification. Result No Neisseria [facility] gonorrhoeae DNA LAB detected by manager federal mediated amplification. Specimen Urine (substance) Performing Organization Address City/[facility]/ZIP Code Phon e Number [facility] [address] [place] [address] SERVICES [facility] [address] [place] [address] BACTERIAL CULTURE, URINE (05/12/2009 9:30 EDT) Pathologist Sig nature Specimen Description Urine [facility] Result No growth [facility] Report Status Final [facility] 05/13/2009 Specimen Urine (substance) Performing Organization Address City/State/ZIP Code Phon e Number [facility] [address] [place] [address] SERVICES [facility] [address] [place] [address] CHLAMYDIA/GC AMPLIFIED (05/12/2009 9:29 EDT) Specimen Cervix [facility] Description LAB Result No Chlamydia [facility] trachomatis DNA LAB detected by manager federal mediated amplification. Result No Neisseria [facility] gonorrhoeae DNA LAB detected by manager federal mediated amplification. Specimen Other (qualifier value) Performing Organization Address City/State/ZIP Code Phon e Number [facility] [address] [place] [address] SERVICES [facility] [address] [place] [address] CYTOPATHOLOGY (05/12/2009 0:00 EDT) Pathology Report: CYTOPATHOLOGY REPORT ? [facility] ? LAB Reports generated via [employer] interface contain original data; ? however they are lacking the format of the original report. ? Caution should be taken when reading/interpreting unformatted reports. ? Name: ? GÉNESIS DURON A S ? Accession #: ? [id number] ? : ? 1980 (Age: 28) ??F ?Collect Date: ? 05/12/2009 ? Location: ? [facility] ? Receive Date: ? 05/12/2009 ? Provider: ?NORA LUNA MD ? Copy to: ? Specimen/Source: ? Pap Test, Cervix/Endocervix, ThinPrep Imaging System ? with manual evaluation ? Last Menstrual Period: ? 9/4/09 ? Other: ? HPVA - HPV testing requested if ASC-US on the current ThinPrep Pap test. ? SPECIMEN ADEQUACY ? Satisfactory for Eval uation ? - transformation zone compon ent present ? GENERAL CATEGORIZATION ? Negative for Intraepi thelial Lesion or Malignancy ? INTERPRETATION ? Shift in [place] presen t suggestive of bacterial vaginosis. ? Document reviewed and electr onically signed by: ? Lynan Toro, CT(ASCP) ? Report Date: ??10/12/ 2009 10:05 ? End of Report ? Specimen Performing Organization Address City/State/[facility] Code Phon e Number [facility] [address] [place] [address] SERVICES [facility] [address] [place] [address] documented in this encounter Visit Diagnoses Not on filedocumented in this encounter Care Teams Dressing Machine Operator Relationship Specialty Start Date End Date Poly Godoy MD PCP - General 11/24/08 11/18/[address] [place] [phone] documented as of this encounter
--- OUTSIDE RECORDS SUMMARY | 2022-04-08 00:55 | XMS_ITS | Encounter Summary ---
:1980 Author Organization [facility] Address [address] [place] [address] Care Team Providers Name Role Phone Unavailable Primary Care Provider Unavailable Encounter Details Date Type Department Care Team Description 10/06/2008 Hospital Encounter [facility] Momo Suh MD [address] [place] [phone] [place] Brandie Lopez MD [address] [place] [phone] [address] [place] [address] Social History Tobacco Use Types Packs/Day Years Used Date Never Assessed Sex Assigned at Date Recorded Not on file documented as of this encounter Discharge Disposition Disposition Code Departure Means Destination Auto Discharge documented in this encounter Plan of Treatment Not on filedocumented as of this encounter Visit Diagnoses Not on filedocumented in this encounter
--- OUTSIDE RECORDS SUMMARY | 2022-04-08 00:55 | XMS_ITS | Encounter Summary ---
:1980 Author Organization [facility] Address [address] [place] [address] Care Team Providers Name Role Phone Poly Godoy MD Primary Care Provider Encounter Details Date Type Department Care Team Description 09/09/2009 Hospital Encounter [facility] - Rajeev Temple MD [address] Interventional Pain [address] [place] [address] [place], [place] 05 [facility] [phone] Social History Tobacco Use Types Packs/Day Years Used Date Current Every Day Smoker 0.25 Alcohol Use Standard Drinks/Week Comments No 0 (1 standard drink = 0.6 oz pure alcoho l) Sex Assigned at Date Recorded Not on file documented as of this encounter Medications at Time of Discharge Medication Sig Dispensed Refills Start Date End Date buprenorphine-naloxone Place 16 mg under 0 (SUBOXONE) 2-0.5 mg Subl the tongue daily. diphenhydramine (SOMINEX) Take 1 Tab by mouth 30 3 0 02/19/2009 08/20/2010 25 mg tablet at bedtime as needed for Sleep. docusate sodium (COLACE) Take 100 mg by mouth 0 08/20/2010 100 mg capsule 2 times daily. folic acid (FOLVITE) 1 mg Take 1 mg by mouth 0 08/20/2010 tablet daily. hydrocortisone-pramovine Place 1 Applicator 1 Can 0 09/200808/20/2010 (PROCTOFOAM HC) rectal rectally every 12 foam hours. MULTIVITAMINS (CHEWABLE Take by mouth. 0 08/20/2010 MULTI VITAMIN ORAL) NONFORMULARY MEDICATION Lovonox 40mg sc bid 0 08/20/2010 NONFORMULARY MEDICATION Sebutex 80mg qd 0 08/20/2010 POLYETHYLENE GLYCOL 3350 Take by mouth as 0 08/20/2010 (MIRALAX ORAL) needed. sulfamethoxazole-trimetho Take 1 Tab by mouth 0 08/20/2010 prim (BACTRIM DS) 160-800 every 12 hours. For mg per tablet sinus infection- has about a week to go. documented as of this encounter Discharge Disposition Disposition Code Departure Means Destination Auto Discharge Home documented in this encounter Progress Notes Tana Temple - 09/09/2009 0000 EST DIVISION OF PAIN MANAGEMENT PROGRESS/FOLLOWUP NOTE - 09/09/2009 PROCEDURE: Followup visit. INTERVAL HISTORY: Ms Duron returns to clinic today for a followup visit regarding her chronic back pain. She was last seen in our clinic roughly 08/20, approximately two to three weeks ago, at whichpoint she underwent facet joint injections. She states she had 100% relief for approximately 10 hours and has return of her pain. She has not responded to the steroid component of her injections at this time. She continues to have the same pain in her low back, the levels inferior to her lumbar fusion. She is status post lumbar fusion from T5-L3. Her fusion does extend to L2 on the right and to L3 onthe left. She feels that this area of pain has increased since the injection therapy. Same character, just increased intensity. She rates her pain as a 6/10. She was very emotional today, stating that she cannot go to her doctor for pain medication at this time. She states he is a psychiatrist and will not treat her pain. He is treating her addiction. Her psychiatrist is Aravind Edward. REVIEW OF SYSTEMS: The patient denies any bowel or bladder incontinence, fevers, chills, nausea, vomiting, headaches, dizziness or visual changes. She is positive for fatigue and anxiety and depression. OBJECTIVE: The patient is 5 feet 7-1/2 inches tall. The patient weighs 155 pounds. Blood pressure is114/71, pulse is 54, respirations 16, temperature 36.3. She is alert and oriented x3, very emotionaltoday with conversation. Somewhat of a poor historian today with questions about medication management. In brief look at her back today, she has got a midline scar lateral to the inferior component of her midline scar on the left. She does have asymmetry with increased myofascial spasming component. This is unchanged from when we saw her 2 to 3 weeks ago. This is all secondary to surgical changes. She was tender to palpation throughout a diffuse area of her paraspinous region in the thoracic and lumbar area. Further physical examination was deferred. ASSESSMENT: Chronic axial low back pain status post thoracolumbar fusion T5-L2 and L3. PLAN: Secondary to her positive response to the local anesthetic component of the facet joint injections, I am going to schedule her for a diagnostic medial branch block. This will be considered a second diagnostic block. If she gets a positive response to this as well, we will then move forward with a radiofrequency at the L2-3 levels on the right and the L3-4 levels on the left. I did discuss possibility of getting a consultation with Dr Torrez as he did give further recommendations and counseling on medication management for her psychosocial situation with her psychiatrist,who is currently prescribing her Suboxone. At this time she does not want to do that. Other medications that can be considered for her chronic pain syndrome would be Neurontin or Lyrica. They have indications for neuropathic pain as well as myofascial component, which I think are both considerations for contributing to her pain syndrome. I did provide her with a prescription today for Neurontin to start at 300 mg at bedtime and titrate up slowly to t.i.d. dosing to effect vs side effects. We will see her at the next available appointment. Electronically Signed by Tana Temple MD 09/23/2009 11:11 Tana Temple MD - Tana Temple MD - [facility] Job ID: SM Doc ID: [id number] Ext Doc ID: [id number] cc: APPLE Bray MD documented in this encounter Plan of Treatment Not on filedocumented as of this encounter Visit Diagnoses Not on filedocumented in this encounter Care Teams Surgical Instruments Inspector Relationship Specialty Start Date End Date Poly Godoy MD PCP - General 11/24/08 11/18/[address] [place] [phone] documented as of this encounter
--- OUTSIDE RECORDS SUMMARY | 2022-04-08 00:55 | XMS_ITS | Encounter Summary ---
:1980 Author Organization [facility] Address [address] [place] [address] Care Team Providers Name Role Phone Poly Godoy MD Primary Care Provider Reason for Visit Reason Comments Follow-up Encounter Details Date Type Department Care Team Description 09/06/[address] [facility] Sourav Mai Primary hypercoagulable Hematology & [address] [place] [address] ([facility]) (Primary Oncology - [facility]) [address] [phone] [place] [address] (Work) [phone] Social History Tobacco Use Types Packs/Day Years Used Date Current Every Day Smoker 0.25 Alcohol Use Standard Drinks/Week Comments No 0 (1 standard drink = 0.6 oz pure alcoho l) Sex Assigned at Date Recorded Not on file documented as of this encounter Last Filed Vital Signs Vital Sign Reading Time Taken Comments Blood Pressure 111/68 09/06/2010 1009 EST Pulse 67 09/06/2010 1009 EST Temperature 35.7 ??C (96.3 ??F) 09/06/2010 1009 EST Respiratory Rate 16 09/06/2010 1009 EST Oxygen Saturation - - Inhaled Oxygen Concentration - - Weight 61.8 kg (136 lb 3.2 oz) 09/06/2010 1009 EST Height - - Body Mass Index - - documented in this encounter Ordered Prescriptions Prescription Sig Dispensed Refills Start Date End Date aspirin chewable 81 mg Take 1 Tab by mouth 30 Tab 11 08/0911/19/2010 tablet daily. documented in this encounter Progress Notes Ricardo Mai, ILYA - 09/23/2010 0912 EST DIVISION OF HEMATOLOGY / ONCOLOGY PROGRESS/FOLLOWUP NOTE - 09/06/2010 REASON FOR VISIT: Ongoing management of hypocoagulable syndrome as manifested by a superficial DVT in the setting in December 2008. MEDICAL PROBLEM LIST: 1. Hypercoagulable syndrome. a. Right multiple varices in the upper right thigh not communicating with the greater saphenous veinMay 2008, in the setting of day two . b. Started on Lovenox, initially 40 mg q.12 h. and then increased to 80 mg q.12 h. c. Repeat ultrasound July 14, 2010. Impression: Femoral and popliteal veins are compressible and show no evidence of intramural mass; both show plastic and spontaneous flow as well as augmentation, no sonic evidence of DVT. d. Ms Duron currently on aspirin therapy. e. Laboratory data: D-dimer on 08/20 less than 200. 2. Polysubstance abuse. 3. Asthma. 4. Tobacco. 5. Scoliosis repair with Bose rods at age 14. HISTORY OF PRESENT ILLNESS: Ms Duron is a 29-year-old female known to the thrombosis hemostasis program as indicated by the above medical problem list. She has had a superficial thrombosis in the setting of . Ms Duron sought medical treatment from her primary care doctor in [facility] for ongoing left pain. An ultrasound performed on 07/14/2010 showed no evidence ofdeep vein thrombosis. Ms Duron was evaluated in clinic on 08/20. She is here for further recommendations. Overall, Ms Duron is well. She is not complaining of any significant shortness of breath or chest pain, although she is complaining of ongoing leg pain as well as occasional arm pain as well as a very significant appetite. ALLERGIES: The patient states sensitivity to AZITHROMYCIN, AUGMENTIN and apples and nuts. MEDICATIONS: Suboxone 2/0.25 sublingual daily. Tylenol p.r.n. Aspirin 81 mg daily. Lisdexamfetamine 40 mg daily. REVIEW OF SYSTEMS: The patient states occasional night sweats. No fatigue. Ongoing pain in her arms and legs. No significant shortness of breath. Is complaining of a cough. No chest palpitations. No GIor distress. No difficulty urinating. No unusual vaginal discharge. Ongoing headaches. Mood is positive. OBJECTIVE: Temperature today is 35.7, heart rate 67, blood pressure 111/68, respirations 16. Weight today is 61.7 kg. This is an increase from 59.8 kg on the fourteenth. In general, well-developed, well-nourished female in no apparent distress. ECOG status 0. Head, ears, eyes, nose and throat: The patient is normocephalic. Ocular movements are intact. Neck supple, no lymphadenopathy. Lungs clear to auscultation in all tyson. No wheezes, rales or rhonchi. Cardiac: S1, S2 with a regular rate and rhythm. No gallop, rub or murmur. Abdomen soft, nontender, nondistended with positive bowel sounds. I asked Ms Duron to change into a gown this afternoon. I examined her legs without her stockings on. There is a significant tattoo on the right. There is no evidence of any skin breakdown. No significant venous ectasia in the legs, did appear dusky in the upper thighs. There was some mild tenderness to palpation in the right. LABORATORY DATA: From 08/20/2010, sodium 140, potassium 3.9, chloride 100, CO2 34, BUN 8, serum creatinine 0.65. T bili less than 0.25, ALT less than 11, AST 21, alk-phos 63. LDH 359. D-dimer less than 200. WBC 8.06, hemoglobin 13.3, hematocrit 38.1, platelets 230. ASSESSMENT: Ms Duron is a 29-year-old female who had a superficial DVT in the setting of , treated with Lovenox. She has ongoing pain in her legs. Most recent ultrasound on 07/14 is negative for deep vein thrombosis. D- dimer drawn on 08/20 is within normal limits. Ms Duron is experiencing some postthrombotic syndrome. She is compliant wearing her compression garments. Physical exam today did not show any significant atrophic skin changes or breakdown. She may benefit from a lymphedema therapy. In regards to Ms Duron's complaints of night sweats, her HDLwas normal. I do not suspect underlying carcinoma. Her ongoing leg pain may be secondary to her scoliosis. I do not have any thyroid studies. Ms Bernadino may benefit from TSH, although she has gained weight since her last visit. PLAN: 1. Postthrombotic syndrome. Ms Duron will continue to wear her compression garments. She was congratulated on compliance. I would like Ms Duron to trial lymphedema therapy after research where she may have a certified therapist in the [facility] area. 2. Aspirin therapy. This may explain any bruising she has. 3. Health maintenance: Ms Duron was encouraged to keep her weight stable. 4. Followup. Ms Duron will return to clinic in approximately 3 months. I will have her see nursepractitioner, Ama Peace, who has an expertise in the area of postthrombotic syndrome. Electronically Signed by Ricardo Mai APRN 09/23/2010 09:12 Dictated by: Ricardo Mai APRN - Ricardo Mai APRN A - [facility] Job ID: Doc ID: [id number] Ext Doc ID: [id number] cc: MD Osmany Concepcion MD Ricardo Vail NP - 09/06/2010 1107 EST Refer for lymphedema therapy documented in this encounter Plan of Treatment Not on filedocumented as of this encounter Visit Diagnoses Diagnosis Primary hypercoagulable state ([facility]) ([facility]) - Primary Primary hypercoagulable state documented in this encounter Care Teams Property Underwriter Relationship Specialty Start Date End Date Poly Godoy MD PCP - General 11/24/08 11/18/[address] [place] [phone] documented as of this encounter
--- OUTSIDE RECORDS SUMMARY | 2022-04-08 00:55 | XMS_ITS | Encounter Summary ---
:1980 Author Organization [facility] Address [address] [place] [address] Care Team Providers Name Role Phone Poly Godoy MD Primary Care Provider Encounter Details Date Type Department Care Team Description 05/12/2009 Abstract Used for ABSTRACTING Data Poly Godoy MD [phone] [facility] [address] [place] [phone] (Wo rk) Social History Tobacco [...] on filedocumented in this encounter Care Teams Cinder Worker Relationship Specialty Start Date End Date Poly Godoy MD PCP - General 11/24/08 11/18/10 [address] [place] [phone] documented as of this encounter
--- OUTSIDE RECORDS SUMMARY | 2022-04-08 00:55 | XMS_ITS | Encounter Summary ---
:1980 Author Organization [facility] Address [address] [place] [address] Care Team Providers Name Role Phone Poly Godoy MD Primary Care Provider Aravind Sanz MD Primary Care Provider Poly Godoy MD Primary Care Provider Encounter Details Date Type Department Care Team Description 11/21/2008 Hospital Encounter [facility] - Parker Helm MD Other [address] [place] [address] [id number], [place] [phone] (Wo rk) Social History Tobacco Use Types [...] on filedocumented in this encounter Care Teams Cardiac Cath Technician Relationship Specialty Start Date End Date Poly Godoy MD PCP - General 11/24/08 11/18/[address] [phone] Aravind Sanz MD PCP - General 11/19/10 06/20/[id number] [place] [address] Poly Godoy MD PCP - General 06/21/[address] [place] [phone] documented as of this encounter
--- OUTSIDE RECORDS SUMMARY | 2022-04-08 00:55 | XMS_ITS | Encounter Summary ---
:1980 Author Organization [facility] Address [address] [place] [address] Care Team Providers Name Role Phone Poly Godoy MD Primary Care Provider Reason for Visit Reason Comments Bleeding/Bruising Encounter Details Date Type Department Care Team Description 08/20/2010 Office Visit [facility] Sourav Mai Primary hypercoagulable Hematology & [address] [place] [address] ([facility]) (Primary Oncology - [facility]) [address] [phone] [place] [address] (Work) [phone] Social History Tobacco Use Types Packs/Day Years Used Date Current Every Day Smoker 0.25 Alcohol Use Standard Drinks/Week Comments No 0 (1 standard drink = 0.6 oz pure alcoho l) Sex Assigned at Date Recorded Not on file documented as of this encounter Last Filed Vital Signs Vital Sign Reading Time Taken Comments Blood Pressure 111/70 08/20/2010 1617 EST Pulse 73 08/20/2010 1617 EST Temperature 36.1 ??C (97 ??F) 08/20/2010 1617 EST Respiratory Rate 16 08/20/2010 1617 EST Oxygen Saturation - - Inhaled Oxygen Concentration - - Weight 59.9 kg (132 lb) 08/20/2010 1617 EST Height - - Body Mass Index - - documented in this encounter Progress Notes Ricardo Mai, CERTIFIED PERSONAL TRAINER - 09/08/2010 1514 EST DIVISION OF HEMATOLOGY / ONCOLOGY PROGRESS/FOLLOWUP NOTE - 08/20/2010 REASON FOR VISIT: Ongoing management of hypercoagulable syndrome as manifested by a superficial DVT [...] OF PRESENT ILLNESS: Ms Duron is a 28-year-old female, , who gave via cesareansection on 12/08/2008. During the course of her noted intermittent swelling, although she attributed this to being . She also experienced a 50-pound weight gain. She had an ultrasound performed on 11/10/2008, which was negative for thrombosis. Approximately 2 days after giving , shedescribed pain in her right leg. She underwent an ultrasound, which confirmed a superficial DVT in the right thigh. She was treated with Lovenox 40 mg subcutaneously twice per day with a treatment goalof 8 weeks. On 12/30/2008, Ms Duron was seen emergently secondary to concerns for bleeding. At that time, herLovenox was reduced to 40 mg subcutaneous. Blood work at that time showed a hemoglobin 12.8, hematocrit 36. Ms Duron was also worked up for urinary tract infection, which was negative. Ms Donald last seen in the clinic on 02/04/2009. Ms Duron was scheduled to be seen on at 4:30. She did not come to her appointment. She arrives today at 4:30, state she was instructed to come today. Overall Ms Duron is well. She has on going leg pain, having an ultra sound done at [facility],positive for superficial thrombosis, negative for DVT .Todays appointment was a referral arranged byher PCP. ALLERGIES: The patient states a sensitivity to ERYTHROMYCIN, AUGMENTIN, APPLES and NUTS. MEDICATIONS: Aspirin 81 mg daily started by her PCP recently. Tylenol 500 mg p.r.n. Suboxone sublingual daily. Vyvance 40 mg daily. REVIEW OF SYSTEMS: The patient states both chills during the day and night sweats in the evening. Nofatigue, some weight loss, ongoing discomfort, currently having a head cold, no unusual throat pain.No shortness of breath or unusual chest pain. No nausea or vomiting, ongoing constipation, no difficulties urinating, no sexual dysfunction, complaining of some tingling in her right thigh, ongoing headaches. OBJECTIVE: Temperature today is 36.1, heart rate 73, blood pressure 111/70, respirations 16. Weight today is 59.87 kg. In general, a somewhat thin-appearing female in no apparent distress. ECOG status 0. Head, ears, eyes, nose and throat: Patient is normocephalic. Ocular movements are intact. Neck supple, no lymphadenopathy. Lungs clear to auscultation in all tyson. No wheezes, rales or rhonchi. Cardiac: S1, S2 with a regular rate and rhythm. No gallop, rub or murmur. Abdomen soft, nontender, nondistended with positive bowel sounds. No hepatomegaly or splenomegaly. Lower extremities: Ms Duron was wearing compression garments. These were thigh-high. I do not detect any pain with palpa tion or any unusual erythema. ASSESSMENT: Ms Duron is a 28-year-old female, , who had a right leg superficial DVT day 2 . She was treated with 8 weeks of Lovenox with some bleeding. The dose was reduced. She tolerated the rest of her treatment. I have asked our log sorting supervisor to please contact Dr Sanz's office to have all appropriate imaging and laboratory data sent to us. I have also asked Ms Duron return to the clinic on the . I was concerned with complaints of night sweats and ordered a CBC, metabolic profile, as well as LDH. From our discussion this afternoon it sounds like Ms Duron is having either postthrombotic syndrome, which she is compliant with her stockings. PLAN: 1. Ms Duron will continue with her aspirin as prescribed by her primary care doctor. 2. Postthrombotic syndrome. She was encouraged to continue to wear compression garments. 3. Would check D-dimer, LDH, comprehensive metabolic profile and CBC today. 4. Followup. Ms Duron will return to clinic on the . We will have a chance by then to get data from [facility]. Ms Duron was encouraged to call this office at any time with questions or concerns. ADDENDUM: Laboratory Data 08/20/2010: Ddimer 200 WBC 8.06, HBG 13.3, HCT 38.1, PLT 230 TBILI <0.5, ALT <11, AST 21, ALKPHOS 63 NA 140, K 3.9, CL 100, CO2 34, BUN 8, ROLLER MECHANIC 0.65, LDH 359 Electronically Signed by Ricardo Mai APRN 09/08/2010 15:14 Dictated by: Ricardo Mai APRN - Ricardo Mai APRN P - MS Job ID: Doc ID: [id number] Ext Doc ID: [id number] cc: MD Osmany Concepcion MD Ricardo Vail NP - 08/20/2010 1640 EST This office note has been dictated. documented in this encounter Plan of Treatment Not on filedocumented as of this encounter Procedures Procedure Name Priority Date/Time Associated Diagnosis Comme nts COMPREHENSIVE Routine 08/20/2010 17:07 Primary Results fo r this METABOLIC PANEL EST hypercoagulable state pro cedure are in (ONCOLOGY USE ([facility]) the results ONLY-INC MG) section. D-DIMER Routine 08/20/2010 17:07 Primary Results for this EST hypercoagulable state proced ure are in ([facility]) the results section. COMPLETE BLOOD COUNT Routine 08/20/2010 17:07 Primary Res ults for this AND DIFFERENTIAL EST hypercoagulable state pr ocedure are in ([facility]) the results section. LDH Routine 08/20/2010 17:07 Primary Results for this EST hypercoagulable state proced ure are in ([facility]) the results section. documented in this encounter Results D-DIMER (08/20/2010 17:07 EST) Pathologist Sig nature D-Dimer 200Comment: CUTOFF <230 ng/mL [facility] VALUE FOR THE EXCLUSION OF DVT and PE: 230 ng/mL Specimen Blood specimen (specimen) Performing Organization Address City/State/ZIP Code Phon e Number [facility] [address] [place] [address] SERVICES [facility] [address] [place] [address] LDH (08/20/2010 17:07 EST) Pathologist Sig nature LDH 359 313 - 618 U/L [facility] Specimen Blood specimen (specimen) Performing Organization Address City/State/ZIP Code Phon e Number [facility] [address] [place] [address] SERVICES [facility] [address] [place] [address] (ABNORMAL) COMPREHENSIVE METABOLIC PANEL (ONCOLOGY USE ONLY-INC MG: DRAW GREEN TOP) (08/20/2010 17:07 EST) Pathologist Sig nature Potassium 3.9 3.5 - 5.0 mEq/L [facility] Sodium 140 136 - 145 mEq/L [facility] Chloride 100 96 - 110 mEq/L [facility] CO2 34 (H) 24 - 32 mEq/L [facility] Anion Gap 6 0 - 18 [facility] Total Alkaline 63 38 - 126 U/L [facility] Phosphatase Bilirubin, Total <0.5 0.2 - 1.3 mg/dl [facility] AST 21 15 - 46 U/L [facility] ALT <11 9 - 52 U/L [facility] Albumin 4.2 3.4 - 4.9 g/dl [facility] Total Protein 7.3 6.5 - 8.3 g/dl [facility] Creatinine 0.65 (L) 0.7 - 1.5 mg/dl [facility] GFR, Calculated >60 ml/min/1.73m2 [facility] BUN 8 (L) 10 - 26 mg/dl [facility] Calcium 9.0 8.5 - 10.5 [facility] mg/dl Calculated Calcium 9.2 8.5 - 10.5 [facility] mg/dl Glucose, Serum 80 70 - 100 mg/dl [facility] Fasting? No [facility] Magnesium 2.0 1.7 - 2.8 mg/dl [facility] Specimen Blood specimen (specimen) Performing Organization Address City/[facility]/ZIP Code Phon e Number [facility] [address] [place] [address] SERVICES [facility] [address] [place] [address] HEMAGRAM AND DIFFERENTIAL (08/20/2010 17:07 EST) Pathologist Sig nature WBC 8.06 4.0 - 12.4 K/cmm [facility] RBC 4.22 3.86 - 5.04 M/cmm [facility] Hemoglobin 13.3 11.6 - 15.2 gm/dl [facility] HCT 38.1 34.9 - 44.4 % [facility] MCV 90 81 - 98 fl [facility] MCH 31.5 26.7 - 33.3 pg [facility] MCHC 34.9 32.1 - 35.9 gm/dl [facility] PLT 230 141 - 320 K/cmm [facility] RDW-CV 12.9 11.7 - 14.6 % [facility] Neutrophils 63.8 45.5 - 79.7 % [facility] Lymphocytes 27.4 15.0 - 46.8 % [facility] Monocytes 6.0 1.8 - 12.0 % [facility] Eosinophils 2.2 0.6 - 6.9 % [facility] Basophils 0.6 0.2 - 1.4 % [facility] ABS Neutrophils 5.14 2.20 - 8.85 K/cmm [facility] ABS Lymphs 2.21 1.09 - 3.30 K/cmm [facility] ABS Monocytes 0.48 0.1 - 0.8 K/cmm [facility] ABS Eosinophils 0.18 0.03 - 0.61 K/cmm [facility] ABS Basophils 0.05 0.01 - 0.11 K/cmm [facility] Type of Diff: Automated [facility] Specimen Blood specimen (specimen) Performing Organization Address City/[facility]/ZIP Code Phon e Number [facility] [address] [place] [address] SERVICES [facility] [address] [place] [address] documented in this encounter Visit Diagnoses Diagnosis Primary hypercoagulable state (HCC-[facility]) (HCC) - Primary Primary hypercoagulable state documented in this encounter Discontinued Medications Medication Sig Discontinue Reason Start Date End Date baclofen (LIORESAL) 10 Take 10 mg by mouth Therapy completed 08/20/2010 mg tablet 3 times daily. diphenhydramine Take 1 Tab by mouth Patient Stopped 02/19/2009 (SOMINEX) 25 mg tablet at bedtime as Taking needed for Sleep. docusate sodium (COLACE) Take 100 mg by Patient Stopped 08/20/2010 100 mg capsule mouth 2 times Taking daily. folic acid (FOLVITE) 1 Take 1 mg by mouth Patient Stopped 08/20/2010 mg tablet daily. Taking hydrocortisone-pramovine Place 1 Applicator Patient Stopped 009 08/20/2010 (PROCTOFOAM HC) rectal rectally every 12 Taking foam hours. MULTIVITAMINS (CHEWABLE Take by mouth. Patient Stopped 08/20/2010 MULTI VITAMIN ORAL) Taking NONFORMULARY MEDICATION Lovonox 40mg sc bid Therapy completed 08/20/2010 NONFORMULARY MEDICATION Sebutex 80mg qd Therapy completed 08/20/2010 POLYETHYLENE GLYCOL 3350 Take by mouth as Therapy completed 08/20/2010 (MIRALAX ORAL) needed. sulfamethoxazole-trimeth Take 1 Tab by mouth Therapy completed 08/20/2010 oprim (BACTRIM DS) every 12 hours. For 160-800 mg per tablet sinus infection- has about a week to go. documented as of this encounter Historical Medications This list may reflect changes made after this encounter. Medication Sig Dispensed Refills Start Date End Date aspirin 81 mg EC tablet Take 81 mg by 0 mouth daily. lisdexamfetamine (VYVANSE) 40 Take 40 mg by 0 mg capsule mouth daily. added in this encounter Care Teams Marine Chronometer Assembler Relationship Specialty Start Date End Date Poly Godoy MD PCP - General 11/24/08 11/18/[address] [place] [address] [phone] documented as of this encounter
--- OUTSIDE RECORDS SUMMARY | 2022-04-08 00:55 | XMS_ITS | Encounter Summary ---
:1980 Author Organization [facility] Address [address] [place] [address] Care Team Providers Name Role Phone Poly Godoy MD Primary Care Provider Encounter Details Date Type Department Care Team Description 09/24/2009 Hospital Encounter [facility] - Unknown, Provider, [facility] Deanna Covington MD [facility] Isauro Alfaro MD [address] [place] [phone] Interventional Pain [address] [place], [place] [address] Social History Tobacco Use Types Packs/Day Years [...] Auto Discharge Home documented in this encounter Procedure Notes Isauro Alfaro MD - 09/24/2009 0000 EST DIVISION OF PAIN MANAGEMENT PROCEDURE REPORT SERVICE DATE: 09/24/2009 PREPROCEDURE DIAGNOSIS: Chronic back pain, status post fusion from T5 to L3. PROCEDURE: Aborted bilateral medial branch blocks. INTERVAL HISTORY: Ms Duron comes to clinic after last being seen on 09/09/2009, at which point we discussed with her the possibility of providing her with medial branch blocks for diagnostic and possibly therapeutic injections in hopes of alleviating some of the axial discomfort she continues to have. Patient previously had some significant relief for a minimum of 10 hours from her last facet injection at L2-L3 on the left and L3- 4 on the right. If medial branch blocks were successful we would consider thermal radiofrequency ablation at the aforementioned levels for long-term relief. REVIEW OF SYSTEMS: Negative for chest pain, shortness of breath, nausea, vomiting, diarrhea, constipation, bowel or bladder incontinence, infectious issues or anticoagulation issues. OBJECTIVE: On examination, Ms Duron is awake, alert and oriented x3 in no acute distress. She is5 feet 7 inches tall and weighs 155 pounds. Blood pressure 111/63, pulse 75, respiratory rate 20, temperature 35.3. She is in some discomfort today and reports pain of 5/10 in nature and located along the same distribution and pattern as in the past. Further physical examination was deferred. ASSESSMENT: Chronic axial low back pain status post thoracolumbar fusion T5, L2 and L3. PLAN: Today we will proceed with a diagnostic left L2-3 medial branch blocks on the left, medial branch and L3-L4, medial branch blocks. Should this provide her with adequate pain relief, we will then consider proceeding with a thermal radiofrequency ablation. Patient understands and wishes to proceed. PROCEDURE NOTE: After obtaining informed consent, patient brought to the procedure room and placed in prone position. After sterile prep and drape with chlorhexidine solution, we located under fluoroscopic guidance left-sided L2 and L3 junctions of the superior articulating process and transverse process as the expected location of the medial branches. After local infiltration with 2% lidocaine for skin and subcutaneous tissues the patient became agitated and stated she was unclear as to what we were doing. The proceedure was temporarily halted and it was reiterated in significant detail the procedure that was being done. She voiced her understanding and desire to proceed at which point we begain to advance 31/2 inch, 22-gauge Quincke spinal needles through the anesthetized skin towards the left L2 and L3 medial branches. The patient again asked what we were doing and what procedure we were doing and at that point, stated I am done with this and requested we stop the procedure. The procedure was immediately aborted and the needles removed. At his point it was agreed that the patient could return to the clinic for a new appointment although despite multiple attempts to explain the procedure and indication, she verbalized understanding and then moments later again asks what procedure we are doing and why. Joanne was discharged in the company of her driver/guide with no obvious complications. Sheis to return to clinic at the next available appointment for consideration of repeat procedure. Unless otherwise noted, there were no complications, no blood loss, cultures obtained, specimens removed, or drains retained. I was present during the entire procedure. Electronically Signed by Deanna Covington MD 10/04/2009 22:31 Isauro Alfaro MD Deanna Covington MD - Isauro Alfaro MD - [facility] Job ID: SM Doc ID: [id number] Ext Doc ID: [id number] cc: APPLE Bray MD DIVISION OF PAIN MANAGEMENT ADDENDUM TO PROCEDURE REPORT SERVICE DATE: 09/24/2009 As noted in the previously dictated procedure note, the procedure was aborted after local infiltration of lidocaine into the skin for local anesthesia. The previously drawn up medications including 0.5% bupivacaine, which is to be used for medial branch block, was wasted following the aborted procedure. Electronically Signed by Deanna Covington MD 10/28/2009 13:50 Deanna Covington MD D: - Deanna Covington MD - JMD Job ID: SM Doc ID: [id number] Ext Doc ID: cc: APPLE Bray MD documented in this encounter Plan of Treatment Not on filedocumented as of this encounter Visit Diagnoses Not on filedocumented in this encounter Care Teams Sales Planning Coordinator Relationship Specialty Start Date End Date Poly Godoy MD PCP - General 11/24/08 11/18/[address] [place] [address] [phone] documented as of this encounter
--- OUTSIDE RECORDS SUMMARY | 2022-04-08 00:55 | XMS_ITS | Encounter Summary ---
:1980 Author Organization [facility] Address [address] [place] [address] Care Team Providers Name Role Phone Poly Godoy MD Primary Care Provider Aravind Sanz MD Primary Care Provider Poly Godoy MD Primary Care Provider Encounter Details Date Type Department Care Team Description 11/04/2008 Hospital Encounter [facility] - Debi Grigsby [facility] F, DIELECTRIC PRESS OPERATOR [id number] [place] [address] [phone] (Wo rk) Social History Tobacco Use Types [...] on filedocumented in this encounter Care Teams Conveyor Belt Installer Relationship Specialty Start Date End Date Poly Godoy MD PCP - General 11/24/08 11/18/[address] [place] [phone] Aravind Sanz MD PCP - General 11/19/10 06/20/[address] [place] [phone] Poly Godoy MD PCP - General 06/21/[address] [place] [phone] documented as of this encounter
--- OUTSIDE RECORDS SUMMARY | 2022-04-08 00:55 | XMS_ITS | Encounter Summary ---
:1980 Author Organization [facility] Address [address] [place] [address] Care Team Providers Name Role Phone Poly Godoy MD Primary Care Provider Encounter Details Date Type Department Care Team Description 05/15/2009 Abstract [facility] Poly Godoy MD Unspecified Retention of Urine; Women's Services - Main [address] [facility] [address] [place] [phone] (Wo rk) Social History Tobacco Use Types Packs/Day Years Used Date Current Every Day Smoker 0.25 Alcohol Use Standard Drinks/Week Comments No 0 (1 standard drink = 0.6 oz pure alcoho l) Sex Assigned at Date Recorded Not on file documented as of this encounter Plan of Treatment Not on filedocumented as of this encounter Visit Diagnoses Diagnosis Retention of urine, unspecified Abdominal pain Abdominal pain, unspecified site documented in this encounter Care Teams Director Of Public Safety Relationship Specialty Start Date End Date Poly Godoy MD PCP - General 11/24/08 11/18/[address] [place] [address] [phone] documented as of this encounter
--- OUTSIDE RECORDS SUMMARY | 2022-04-08 00:55 | XMS_ITS | Encounter Summary ---
:[address] [facility] Address [address] [place] [id number] Care Team Providers Name Role Phone Poly Godoy MD Primary Care Provider Reason for Visit Reason Comments Post-op Problem pain Hemorrhoids Encounter Details Date Type Department Care Team Description 04/08/2009 Hospital Encounter [facility] Ladonna Jo Hemorrhoid; Urgent Care - Natalie Morgan PA-C [address] [place] [address] [place], [place] [phone] (Wo rk) Social History Tobacco Use Types Packs/Day Years Used Date Current Every Day Smoker 0.25 Alcohol Use Standard Drinks/Week Comments No 0 (1 standard drink = 0.6 oz pure alcoho l) Sex Assigned at Date Recorded Not on file documented as of this encounter Last Filed Vital Signs Vital Sign Reading Time Taken Comments Blood Pressure 97/60 04/08/200904 EDT Pulse 80 04/08/2009 09 EDT Temperature 36.9 ??C (98.5 ??F) 04/08/2009 09 EDT Respiratory Rate 14 04/08/2009903 EDT Oxygen Saturation - - Inhaled Oxygen Concentration - - Weight - - Height - - Body Mass Index - - documented in this encounter Discharge Instructions InstructionsLadonna Abdi PA - 04/08/2009 As we discussed you should increase you colace to 200mg (2 tabs) twice daily for a few days or untilyou have a Bowel movement. You should also use the prescribed medication for your hemorrhoid, return at any time for any concerns. AttachmentsThe following attachments cannot be sent through Care Everywhere. CONSTIPATION IN ADULTS: AFTER YOUR VISIT (YORUBA)HEMORRHOIDS: AFTER YOUR VISIT (YORUBA)documented in this encounter Medications at Time of [...] to go. documented as of this encounter Ordered Prescriptions Prescription Sig Dispensed Refills Start Date End Date hydrocortisone-pramovine Place 1 Applicator 1 Can 0 09/200808/20/2010 (PROCTOFOAM HC) rectal rectally every 12 foam hours. documented in this encounter Discharge Disposition Disposition Code Departure Means Destination Home or Self Care documented in this encounter ED Notes Annette Soria RN - 04/08/2009 1148 EDT Pre-procedure time out completed prior to doing urine dip and sending urine to lab for drug screen per pt. request. Pt identified self by name and . Verified by ANNETTE SORIA RN. Ladonna Campbell PA - 04/08/2009 1129 EDT Results for orders placed during the hospital encounter of 04/08/2009 POCT URINE DIPSTICK Component Value Range ??? Strip Lot Number [id number] - ??? Expiration Date 2009-12 - ??? Color, UA Yellow - ??? Clarity, UA Clear - ??? Glucose, UA Negative Negative, Trace- (mg/dL) ??? Bilirubin, UA Negative Negative- ??? Ketones, UA Negative Negative- (mg/dL) ??? Spec Grav, UA 1.010 1.010, 1.015, 1.020, 1.025- ??? Blood, UA Negative Negative- ??? pH, UA 5.5 4.6-8.0 ??? Protein, UA Negative Negative- (mg/dL) ??? Urobilinogen, UA 0.2 -2.0 (E.U./dL) ??? Nitrite, UA Negative Negative- ??? Leukocytes, UA Negative Negative- ??? UA Comment - Ladonna Abdi PA - 04/08/2009 1100 EDT DOS: 04/08/2009 Chief Complaint Patient presents with ??? Post-op Problem pain ??? Hemorrhoids Patient is a 28 y.o. female presenting with hemorrhoids and post-operative complications. The history is provided by the patient. Hemorrhoids Episode Onset: about 1 week ago. Progression Since Onset: pt has been using a suppository that someone at the home for women and children where she lives, pain has been improving and hemorrhoid shrinking since that time. however pt has had no BM in almost 1 week. The problem is moderate. The symptoms are relieved by one or more OTC medications. Exacerbated by: straining for BM. Associated symptoms include constipation. Pertinent negatives include no fever, no diarrhea, no nausea, no vomiting, no congestion, no ear pain, no headaches, no rhinorrhea, no sore throat, no muscle aches, no neck pain, no cough, no URI and no rash. Post-op Problem Episode Onset: pt additionally reports that last week she had some erythema and a small pimple at the left edge of her scar from a she had 4 mos ago. The problem is mild. Relieved by: pt has been using bacitracin and reports that the spot is now healing and just appears slightly red. Nothing worsens the symptoms. Associated symptoms include constipation. Pertinent negatives include no fever, no diarrhea, no nausea, no vomiting, no congestion, no ear pain, no headaches, no rhinorrhea, no sore throat, no muscle aches, no neck pain, no cough, no URI and no rash. She reports that she has some suprapubic abdominal pain in the area of her incision only when she is urinating. No pain at the urethra on voiding, no fever, no vaginal pain, itching or bleeding. Mild white discharge, no odor. Pt expresses concern because when her was performed 4 mos ago they had found that her bladder had adhered to her uterus in the time since her last c- section - she fears this could recur. Review of Systems Constitutional: Negative for fever, chills, activity change, appetite change and fatigue. HENT: Negative for ear pain, congestion, sore throat, rhinorrhea and neck pain. Respiratory: Negative for cough and shortness of breath. Cardiovascular: Negative for chest pain and palpitations. Gastrointestinal: Positive for constipation. Negative for nausea, vomiting and diarrhea. Skin: Negative for rash and color change. Neurological: Negative for dizziness, syncope, weakness, numbness and headaches. Psychiatric/Behavioral: Negative for behavioral problem. The patient is not nervous/anxious. Current outpatient prescriptions Medication Sig Dispense Refill ??? sulfamethoxazole-trimethoprim (BACTRIM DS) 160-800 mg per tablet Take 1 Tab by mouth every 12 hours. For sinus infection- has about a week to go. ??? POLYETHYLENE GLYCOL 3350 (MIRALAX ORAL) Take by mouth as needed. ??? buprenorphine-naloxone (SUBOXONE) 2-0.[address] 8 mg under the tongue daily. ??? docusate sodium (COLACE) 100 mg capsule Take 100 mg by mouth 2 times daily. ??? folic acid (FOLVITE) 1 mg tablet Take 1 mg by mouth daily. ??? MULTIVITAMINS (CHEWABLE MULTI VITAMIN ORAL) Take by mouth. ??? amoxicillin-clavulanate (AUGMENTIN) 875-125 mg per tablet Take 1 Tab by mouth every 12 hours. ??? diphenhydramine (SOMINEX) 25 mg tablet Take 1 Tab by mouth at bedtime as needed for Sleep. 30 3 ??? metronidazole (FLAGYL) 250 mg tablet Take 250 mg by mouth 3 times daily. ??? NONFORMULARY MEDICATION Lovonox 40mg sc bid ??? NONFORMULARY MEDICATION Sebutex 80mg qd Allergies Allergen Reactions ??? Azithromycin ??? Augmentin (Amoxicillin-pot Clavulanate) Hives Went to ER Past Medical History Diagnosis Date ??? Thrombosis Vein 12/08/08 ??? Deep Vein Thrombosis (DVT) December 08, 2008 Right groin thrombosis ??? Scoliosis History Substance Use Topics ??? Tobacco Use: Yes -- 0.2 packs/day ??? Alcohol Use: No History reviewed. No pertinent family history. BP 97/60 Pulse 80 Temp(Src) 98.5 ??F (36.9 ??C) (Oral) Resp 14 Physical Exam Nursing note and vitals reviewed. Constitutional: She is oriented. She appears well-developed and well-nourished. No distress. Cardiovascular: Normal rate, regular rhythm and normal heart sounds. Pulmonary/Chest: Effort normal and breath sounds normal. No respiratory distress. Abdominal: Soft. She exhibits no distension and no mass. Tenderness (mild suprapubic tenderness.) ispresent. She has no rebound and no guarding. There is a low transverse surgical scar healing well. Slight erythema of the scar but not of the surrounding tissue at the leftmost edge of the scar. The skin in this area is non tender, no suppuration, no mass, no lymphangitis. Genitourinary: Rectal exam shows external hemorrhoid (healing, appears more as a large skin tag, chick pea sized, skin is soft an loose but tender, not thrombosed), fissure and tenderness. Rectal exam shows no internal hemorrhoid, no mass and anal tone normal. Guaiac stool: guaiac test sent to lab. Neurological: She is alert and oriented. Skin: Skin is warm and dry. No rash noted. Psychiatric: She has a normal mood and affect. Her behavior is normal. Consult orders: None PCP: POLY GODOY APRN No results found for this visit on 04/08/2009. Radiology orders: None Procedures Course: Pt requests UDS- sent Impression: healing hemorrhoid, contsipation Plan: procofoam increase colace to 200 mg BID x 2-3 days or until BM. F/U with [facility]) in 2 weeks as able to get appt. And return here for any problems in the meantime. Dr. Patel Sanders was available for consultation during my care of this patient. [facility] 04/08/2009 11:00 AM Annette Soria RN - 04/08/2009922 EDT Hemorrhoid problematic since weekend. Fearful to move bowels. Last BM over a week ago. Also concerned with incision on Left end. Sore, not red, but area came to a head like a pimple. Has put Bacitracin on it. Lexx lara - 04/08/2009903 EDT Patient instructed to put on gown. documented in this encounter Miscellaneous Notes Scanned Note-Null - Inpatient, MD Jairo - 04/14/2009948 EDT canned Note-Null - Physician Turner MD - 04/14/2009948 EDT canned Note-Null - Physician Turner MD - 04/14/2009927 EDT canned Note-Null - Physician Turner MD - 04/14/2009927 EDT documented in this encounter Plan of Treatment Pending Results Name Type Priority Associated Diagnoses Date/Ti me POCT URINE DIPSTICK Point of Care STAT 009 11:18 Testing EDT documented as of this encounter Procedures Procedure Name Priority Date/Time Associated Diagnosis Comme nts OCCULT BLOOD STAT 04/08/2009 11:30 Results for this DIAGNOSTIC, FECES EDT procedure are in the results section. DRUG SCREEN 6 STAT 04/08/2009 11:13 Results fo r this EDT procedure are i n the results section. documented in this encounter Results OCCULT BLOOD (04/08/2009 11:30 EDT) Specimen Description Feces [facility] Performed at [facility], [place], [place] Result Negative [facility] Performed at [facility], [place], [place] Report Status Final [facility] 04/08/2009 Specimen Stool specimen (specimen) Performing Organization Address [facility] Phon e Number [facility] [address] [place] [address] SERVICES [facility] [address] [place] [address] DRUG SCREEN 6 (04/08/2009 11:13 EDT) Amphetamine Screen, Negative Screen [facility] Urine Suitable for medical purposes only. LAB Will not detect all drugs within class. Cutoff = 1000 ng/ml Barbiturate Screen, Negative Screen [facility] Urine Suitable for medical purposes only. LAB Will not detect all drugs within class. Cutoff = 300 ng/ml Benzodiazepine Screen, Negative Screen [facility] Urine Suitable for medical purposes only. LAB Will not detect all drugs within class. Cutoff = 300 ng/ml Cannabinoid Scrn, Ur Negative Screen [facility] Suitable for medical purposes only. LAB Will not detect all drugs within class. Cutoff = 50 ng/ml Cocaine Metabolites, Negative Screen [facility] Ur Suitable for medical purposes only. LAB Will not detect all drugs within class. Cutoff = 300 ng/ml Opiate Scrn, Ur Negative Screen [facility] Suitable for medical purposes only. LAB Will not detect all drugs within class. Cutoff = 300 ng/ml Does not detect oxycodone, oxycontin or methadone. Specimen Urine (substance) Performing Organization Address [facility] Phon e Number [facility] [address] [place] [address] SERVICES [facility] [address] [place] [address] documented in this encounter Visit Diagnoses Diagnosis Hemorrhoid Unspecified hemorrhoids without mention of complication Constipation Unspecified constipation documented in this encounter Discontinued Medications Medication Sig Discontinue Reason Start Date End Date metronidazole (FLAGYL) 250 Take 250 mg by Therapy completed 04/08/2009 mg tablet mouth 3 times daily. amoxicillin-clavulanate Take 1 Tab by Therapy completed 04/08/2009 (AUGMENTIN) 875-125 mg per mouth every 12 tablet hours. documented as of this encounter Historical Medications This list may reflect changes made after this encounter. Medication Sig Dispensed Refills Start Date End Date POLYETHYLENE GLYCOL 3350 Take by mouth as 0 08/20/2010 (MIRALAX ORAL) needed. sulfamethoxazole-trimethop Take 1 Tab by mouth 0 08/20/2010 rim (BACTRIM DS) 160-800 every 12 hours. For mg per tablet sinus infection- has about a week to go. added in this encounter Care Teams Food And Beverage Associate Relationship Specialty Start Date End Date Poly Godoy MD PCP - General 11/24/08 11/18/[address] [place] [id number] documented as of this encounter
--- OUTSIDE RECORDS SUMMARY | 2022-04-08 00:55 | XMS_ITS | Encounter Summary ---
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 MEDICAL PROBLEM LIST: 1. Hypercoagulable syndrome. a. Right upper thigh superficial thrombophlebitis in varices not communicating with the greater saphenous vein 12/11/2008, in the setting of day 2 . b. Treated with Lovenox, 40 mg every 12 hours, then increased to 80 mg every 12 hours. c. Possible second episode in 05/2010, left upper superficial thrombophlebitis -- not treated. d. Repeat ultrasound 07/14/2010 -- femoral and popliteal veins are compressible and show no evidence of intramural mass; no evidence of DVT. e. Currently on aspirin antiplatelet therapy. f. Laboratory data: D-dimer 08/20/2010 -- less than 200. 2. History of polysubstance abuse, in remission. 3. Asthma. 4. Chronic tobacco use. 5. Scoliosis repair with Bose rods at age 14. HISTORY OF PRESENT ILLNESS: Ms Duron is a 29-year-old female known to the Thrombosis-Hemostasis Program, most recently seen by Mr Sourav Mai on 09/06/2010 for ongoing evaluation of complaint of bilateral leg pain and swelling. As noted, she had no evidence of deep or superficial venous thrombosis on her most recent venous duplex ultrasound 07/14/2010. Mr Mai advised continued use of compression support stocking -- she had been very compliant with this. She is seen today for discussion regarding postthrombotic syndrome manual lymphatic drainage therapy. Mr Mia had given her a prescription for this -- she could not find a provider in her area close enough to her home; additionally, her insurance plan (Medicaid) would not cover the treatments. Therefore, she has not had any further therapy since her last visit in August. She continues to describe leg heaviness, achiness and swelling, particularly in the thighs, right greater than left. She lost the prescription that Mr Mai provided to her for new compression support garments. Her main concern today is discussion of work restrictions and limitations. 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 MEDICATIONS: 1. Suboxone 2/0.25 sublingual daily. 2. Lisdexamfetamine 40 mg daily. 3. Aspirin 81 mg daily. 4. Tylenol p.r.n. ALLERGIES: Sensitivity to ZITHROMAX, AUGMENTIN, APPLES, and NUTS. REVIEW OF SYSTEMS: Reports mild nausea, but she has had no vomiting. She has lost 30 pounds in the past year; some of this is unintentional. She has recently regained 10 pounds and is supervisor hydrochloric area to her usual weight. Denies fatigue. She has ongoing pain in both lower extremities, described as moderate cramping, heaviness and pain in the right leg, mild crampiness and pain in the left leg. CEAP score equals 12 on the right leg, 7 on the left leg. She denies any shortness of breath,chest pain, pressure, palpitations. She does have a cough -- she attributes this to smoking. She hascut back on her tobacco use to a 1/2-pack per day at most. Other than mild intermittent nausea, she has no GI or complaints. She has been testing blood sugar due to symptoms of blurred vision, sweats, feeling cold. She is concerned because there is diabetes in a paternal aunt. None of her blood sugars have been elevated, however. She has chronic constipation, and that is unchanged. OBJECTIVE: Vital signs: Blood pressure 102/69, pulse 65, respirations 16, temperature 36. Weight 63.8 kg (140 pounds -- up 2 kg compared to last visit in August). Pain scale rating 0. Well nourished, well developed, thin female, very pleasant, with positive affect. HEENT: Normocephalic. PERRLA, EOMI.Sclerae are anicteric, conjunctivae clear. Neck supple, without lymphadenopathy or thyromegaly. Chest clear to auscultation and percussion bilaterally. No cough during exam. No wheezing. Cardiac regular rate and rhythm without murmur, rub or gallop, normal S1 and S2. Abdomen is soft -- abdominal striae consistent with recent significant weight loss. No tenderness or distention. Normoactive bowel sounds. Lower extremities: Multiple and quite large tattoos, particularly on the right leg. Skin is smooth, supple and intact. She has excellent muscle definition of calves and thighs. No venous ectasias. She has no pitting edema. Measurements of her lower extremities are as follows: Right Leg Left Leg Ankle 22.5 cm 22.0 cm Midcalf 35.5 cm 36.7 cm Midthigh 44 cm 43 cm. Normal range of motion of all joints without crepitus. She does have scattered varicosities in the proximal right anterior thigh extending into the groin. No palpable cords at this level. She is quite thin, and I can palpate a couple of normal-sized lymph nodes in the groin on the right as well. ASSESSMENT: A 29-year-old female with history of superficial thrombophlebitis in the setting, treated with a short course of Lovenox. Ongoing pain in both lower extremities, likely mild postthrombotic syndrome. PLAN: 1. Postthrombotic syndrome: She does not have access to manual lymphatic drainage. Since she is going to be returning to work and likely will be on her legs more, I have given her a new prescription for pantyhose compression support garment, 20 to 30 mm of pressure, 2 pair. Advised to wear daily, especially when working. She is encouraged to continue ambulation as much as possible. 2. Work restrictions/limitations -- the form has been completed by Mr Mai, but we reviewed overall recommendation to change her position at least every 2 hours from sitting to standing or standing to sitting. Ambulate as much as possible, maintain adequate hydration (she admits that she is rather lax along this line). Her weight is very appropriate for her height, and she is encouraged to maintain ideal body weight as well. 3. General health: She is trying to reduce her tobacco use and is down to a 1/2- pack per day at the most, with plans to quit in the near future. 4. Follow up in the Thrombosis-Hemostasis Program on an as-needed basis should she have any concernsin the future. 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 documented as of this encounter Care Teams Home Health Assistant Relationship Specialty Start Date End Date Aravind Sanz MD PCP - General 11/19/10 06/20/[address] [place] [id number] documented as of this encounter
--- OUTSIDE RECORDS SUMMARY | 2022-04-08 00:55 | XMS_ITS | Encounter Summary ---
:1980 Author Organization [facility] Address [address] [place] [address] Care Team Providers Name Role Phone Poly Godoy MD Primary Care Provider Encounter Details Date Type Department Care Team Description 12/17/2008 [facility] [address] [place], [place] 111 [facility] [address] [place], [place] [address] [phone] Social History Tobacco Use Types Packs/Day Years Used Date Never Assessed Sex Assigned at Date Recorded Not on file documented as of this encounter Discharge Disposition Disposition Code Departure Means Destination Auto Discharge Home documented in this encounter Progress Notes Ricardo Mai NP - 12/17/2008 0000 EDT DIVISION OF HEMATOLOGY / ONCOLOGY PROGRESS/FOLLOWUP NOTE - 12/17/2008 PURPOSE OF VISIT Ongoing management of hypercoagulable syndrome as manifested in a superficial DVT in the setting. MEDICAL PROBLEM LIST 1. Hypercoagulable syndrome. a. 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 Started on Lovenox 2. Polysubstance abuse. 3. Asthma. 4. Tobacco. 5. Scoliosis repair with Bose rods at age 14. HISTORY OF PRESENT ILLNESS Ms Duron is a 28-year-old female G2, P2, who gave via section on December 08, 2008. Thepatient describes a history of intermittent leg swelling for months prior to , although sheattributed this to . She experienced [id number] weight gain with this current . Ms Duron did have an ultrasound on November 10, 2008, which showed no evidence of deep vein thrombosis in either extremity. Approximately two days after giving , the patient describes pain in her upper right leg as being sharp and cramping. She underwent ultrasound, which confirmed a superfical DVT in her right thigh. She was initially started on Lovenox 40 mg subcutaneous b.i.d. She is here for eval uation this afternoon regarding increasing this to a therapeutic dose. On presentation to the clinic this afternoon, Ms Duron states overall feeling well. She still iscomplaining of swelling in her legs, although this is greatly improved. She also complains of tenderness in the upper right thigh. This has continued from initial presentation. She specifically denies any shortness of breath or chest pain. She denies any unusual bruising or bleeding from the Lovenox injection. She does describe having continued bleeding secondary to , changing her padsapproximately twice during the night. She describes the pads as being heavy. She changes her pad once during the day, she describes this as light. ALLERGIES ERYTHROMYCIN CAUSES CRAMPING AND ABDOMINAL PAIN. No allergies to food or latex. MEDICATIONS 1. Multivitamin tab once daily. 2. Folic acid 1 mg once daily. 3. Lovenox 40 mg q.12 h. 4. Subutex 8 mg sublingual daily. 5. Colace 200 mg once per day. 6. Fenugreek once by mouth twice daily. REVIEW OF SYSTEMS A 10-point review of systems was reviewed by the patient and myself and is dictated in her chart. Pertinent positives: Continued right upper leg pain with palpation. Pertinent negatives: No shortness of breath and no chest pain. PHYSICAL EXAM Temperature 36.7, heart rate 68, blood pressure 116/68. Height 168 cm. Weight 84.1 kg. In general, awell-developed, well-nourished female in no apparent distress. ECOG status zero. Head, ears, eyes, nose and throat: The patient is normocephalic. Ocular movements are all intact. The sclerae are clear.The conjunctivae are pink. The oropharynx is moist and intact with no evidence of mucosal breakdown.The lungs are clear to auscultation bilaterally. No wheezes, rales or rhonchi. Cardiac: S1, S2 with a regular rate and rhythm. No gallop, rub or murmur. The abdomen is mildly distended . There are scattered, very minute sites secondary to Lovenox injections. She has a positive surgical scar, which is healing well. Steri-Strips intact and nontender. Lower extremities: The upper thigh is painful to palpation. There is a palpable small cord, approximately one centimeter in diameter. There arevisible varicosities there. There was no tenderness on palpation at the lower extremities. No palpable cords in the popliteal area. No cyanosis. Both legs are edematous, right greater than the lower extremity with mild pitting edema, 1/4. LABORATORY DATA From December 17, 2008: White count 9.28, hemoglobin 12.5, hematocrit 36.1, platelets 365. ASSESSMENT Ms Duron is a 28-year-old female, G2, P2, nine days status post section with evidence of a right upper thigh superficial deep vein thrombosis by ultrasound. Based on the patienthistory of continued bleeding, we will maintain her current dose of Lovenox at 40 mg subcutaneously b.i.d. We will call the patient on Monday to see if the bleeding has subsided. If no change, she will maintain onthe current dose of Lovenox. We will again contact her on Monday of next week to see if there has been any change in status and once the patientbleeding has resolved, we will bring her up to a full therapeutic dose of Lovenox for approximately four to six weeks of full-dose treatment. Reviewing the patients laboratory data today, her hemoglobin is remaining within normal limits. PLAN 1. Anticoagulation: Continue Lovenox at 40 mg subcutaneous q.12 h. Increase to full dosing based on cessation of bleeding. Length of anticoagulation eight weeks. 2. Tobacco: The patient was encouraged to enroll in a smoking cessation program. 3. We scheduled an appointment for Ms Duron on one week from today. She was instructed to call with any other questions or concerns. Signed by Ricardo Mai APRN 12/25/2008 10:05 Dictated by: Ricardo Mai APRN - VAIBHAV Mai P - Job ID: [id number] Document ID: [id number] cc: MD Rocael Velázquez MD,PhD MD Estelle Hester MD Job ID: [id number] Document ID: [id number] cc: MD Rocael Velázquez MD,PhD MD Estelle Hester MD documented in this encounter Plan of Treatment Not on filedocumented as of this encounter Visit Diagnoses Not on filedocumented in this encounter Care Teams Construction Specialist Relationship Specialty Start Date End Date Poly Godoy MD PCP - General 11/24/08 11/18/[address] [place] [phone] documented as of this encounter
--- OUTSIDE RECORDS SUMMARY | 2022-04-08 00:55 | XMS_ITS | Encounter Summary ---
:1980 Author Organization [facility] Address [address] [place] [address] Care Team Providers Name Role Phone Unavailable Primary Care Provider Unavailable Encounter Details Date Type Department Care Team Description 11/10/2008 Hospital Encounter [facility] - Viri Godoy MD [address] [phone] [facility] Carlota Rogers MD FA HOUSESTAFF MAIL [address] [place] [address] [place] [address] Social History Tobacco Use Types Packs/Day Years Used Date Never Assessed Sex Assigned at Date Recorded Not on file documented as of this encounter Discharge Disposition Disposition Code Departure Means Destination Auto Discharge documented in this encounter Plan of Treatment Not on filedocumented as of this encounter Visit Diagnoses Not on filedocumented in this encounter
--- OUTSIDE RECORDS SUMMARY | 2022-04-08 00:55 | XMS_ITS | Encounter Summary ---
:1980 Author Organization [facility] Address [address] [place] [address] Care Team Providers Name Role Phone Poly Godoy MD Primary Care Provider Encounter Details Date Type Department Care Team Description 05/12/2009 Hospital Encounter [facility] - Parker Helm MD Other [address] [address] [address], [place] [address] (Wo rk) Social History Tobacco Use Types [...] on filedocumented in this encounter Care Teams Service Now Developer Relationship Specialty Start Date End Date Poly Godoy MD PCP - General 11/24/08 11/18/[address] [place] [phone] documented as of this encounter
--- OUTSIDE RECORDS SUMMARY | 2022-04-08 00:55 | XMS_ITS | Encounter Summary ---
:1980 Author Organization [facility] Address [address] [place] [address] Care Team Providers Name Role Phone Poly Godoy MD Primary Care Provider Encounter Details Date Type Department Care Team Description 03/28/2022 Lab Requisition [facility] Eli Sena E ncounter for other Pathology & ADVANCED MANAGER general examination Laboratory Medicine [address] [place], [place] [address] [facility] [phone] [place], [place] [id number] Social History Tobacco Use Types Packs/Day Years [...] section. documented in this encounter Results (ABNORMAL) HUMAN PAPILLOMAVIRUS (HPV) DETECTION-HIGH RISK TYPES (03/25/2022 10:25 EDT) Human Papillomavirus Positive (A)Comment: Negative [facility] (HPV) Detection-High E6 OR E7 mRNA from CENTER Types one or more types of LABORATORY HPV types SERVICES 16,18,31,33,35,39,45, 51,52,56,58,59,66, and 68 is detected by ironer mediated amplification. High and intermediate risk HPV types are associated with most squamous intraepithelial lesions and cervical cancers. Specimen Pap Test - Cervix and/or Endocervix Performing Organization Address City/[facility] Phon e Number [facility] [address] [place] [address] SERVICES PAP TEST (03/25/2022 10:25 EDT) Specimens A. Cervix and/or [facility] Endocervix , ThinPrep CENTER Imaging System with LABORATORY Manual Evaluation SERVICES Specimen Adequacy Satisfactory for [facility] Evaluation - CENTER transformation zone LABORATORY component present SERVICES General Negative for [facility] Categorization intraepithelial CENTER lesion or malignancy LABORATORY SERVICES Descriptive Shift in [place] [facility] Diagnosis present suggestive of CENTER bacterial vaginosis. LABORATORY SERVICES Attestation . [facility] Electronically CENTER signed by TIMBO Jin CT(ASC P) SERVICES on 04/06/2022 at 2008 Clinical History See below [facility] SERVICES HPV The result for the Human Pap illomavirus (HPV) Detection-High Risk Types is Positive . E6 OR E7 mRNA from one or more types of HPV types 16,18,31,33,35,39,45,51,52,56,58,59,66, and [address] is detected [address] [facility] scription mediated amplifica tion. High and intermediate risk HPV types are associated with most squamous intraepithelial lesions and cervical cancers. Testing was performed on specimen [id number] and CENTER was resulted on 04/06/2022 2006 EDT by SERENE, LAB INSTRUMENT RESULTS IN LABORATORY SERVICES Performing Lab [facility] LAB [facility] SERVICES Scanned Images [facility] SERVICES Specimen Pap Test - Cervix and/or Endocervix Performing Organization Address City/[facility]/ZIP Code Phon e Number [facility] [address] [place] [address] SERVICES documented in this encounter Visit Diagnoses Diagnosis Encounter for other general examination documented in this encounter Care Teams Chain Maker Machine Relationship Specialty Start Date End Date Poly Godoy MD PCP - General 06/21/[address] [place] [phone] documented as of this encounter
--- OUTSIDE RECORDS SUMMARY | 2022-04-08 00:55 | XMS_ITS | Encounter Summary ---
:1980 Author Organization [facility] Address [address] [place] [address] Care Team Providers Name Role Phone Unavailable Primary Care Provider Unavailable Encounter Details Date Type Department Care Team Description 11/17/2008 Hospital Encounter [facility] Momo Suh MD [address] [place] [phone] [place] Brandie Lopez MD [address] [place] [phone] [address] [place] [address] Social History Tobacco Use Types Packs/Day Years Used Date Never Assessed Sex Assigned at Date Recorded Not on file documented as of this encounter Discharge Disposition Disposition Code Departure Means Destination Auto Discharge documented in this encounter Plan of Treatment Not on filedocumented as of this encounter Visit Diagnoses Not on filedocumented in this encounter
--- OUTSIDE RECORDS SUMMARY | 2022-04-08 00:55 | XMS_ITS | Encounter Summary ---
:1980 Author Organization [facility] Address [address] [place] [address] Care Team Providers Name Role Phone Aravind Sanz MD Primary Care Provider Encounter Details Date Type Department Care Team Description 06/17/2015 Results Only [facility] Lisa Canada MD [phone] [facility] [place] [address] (Wo rk) Social History Tobacco Use Types Packs/Day Years Used Date Current Every Day Smoker 0.25 Alcohol Use Standard Drinks/Week Comments No 0 (1 standard drink = 0.6 oz pure alcoho l) Sex Assigned at Date Recorded Not on file documented as of this encounter Plan of Treatment Not on filedocumented as of this encounter Procedures Procedure Name Priority Date/Time Associated Diagnosis Comme [facility] SURGICAL PATHOLOGY Routine 06/17/2015 9:37 EST Re sults for this procedure are i n the results section. documented in this encounter Results SURGICAL PATHOLOGY (06/17/2015 9:37 EST) Pathology SURGICAL PATHOLOGY REPORT [facility] MEDICAL Report: Reports generated via electronic interface conta in original data; CENTER LABORATORY however they are lacking the format of the original re port. SERVICES Caution should be taken when reading/interpreting unfo rmatted reports. Name: ? GÉNESIS DURON ? Accession #: ? [id number] ? : ? 1980 (Age: 4 3) ??F ? Collect Date: ? 06/17/2015 ? Location: ? [facility] ? Receive Date: ? 015 ? Provider: LISA CANADA MD Copy to: SRIDEVI MOLINA MD ? 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 See comment. Comment: ----- The mass may represent a synovial cyst with reactive c hanges. However, an inflammatory arthritis canno t be entirely excluded based on histologic features. Correlation with the clinical impression is recommended. Thermal Surfacing Machine Operator slides of this case were reviewed at the intradepartmental co nsultation conference. ___ Document reviewed and electronically signed by: DWIAN MUNOZ MD Report ??Date: 06/22/2015 13:08 By the signature above, the attending physician certif ies that he/she has personally conducted a gross and/or microscopic examin ation of the described specimens and rendered or confirmed the above diagnosi s. Specimen(s) Received: Mass right hand Clinical History: Not listed Gross Description: ? Received in formalin labelled with proper patient identification (initials B, A) and 1. mass right hand is an unoriented irregu lar piece of fibromembranous tissue with a small amount of lobulate d adipose tissue which measures 1.2 x 0.7 x 0.3 cm. The outer surface i s inked blue. The specimen is entirely submitted intact in 1. Dr. Brothers 06/18/2015 3:42 PM End of Report Specimen Performing Organization Address City/State/ZIP Code Phon e Number [facility] [address] [place] [address] SERVICES documented in this encounter Visit Diagnoses Not on filedocumented in this encounter Care Teams Automobile Taillight Assembler Relationship Specialty Start Date End Date Aravind Sanz MD PCP - General 11/19/10 06/20/[address] [place] [address] documented as of this encounter
--- OUTSIDE RECORDS SUMMARY | 2022-04-08 00:55 | XMS_ITS | Encounter Summary ---
:1980 Author Organization [facility] Address [address] [place] [address] Care Team Providers Name Role Phone Poly Godoy MD Primary Care Provider Encounter Details Date Type Department Care Team Description 09/28/2009 Abstract [facility] Poly Godoy MD Unspecified symptom associated with fema le genital organs; Women's Services - [address] [place] [address] Uns ecified urinary incontinence [facility] [address] [place] [phone] (Wo rk) Social History Tobacco Use Types Packs/Day Years Used Date Current Every Day Smoker 0.25 Alcohol Use Standard Drinks/Week Comments No 0 (1 standard drink = 0.6 oz pure alcoho l) Sex Assigned at Date Recorded Not on file documented as of this encounter Plan of Treatment Not on filedocumented as of this encounter Visit Diagnoses Diagnosis Unspecified symptom associated with fema le genital organs Unspecified urinary incontinence documented in this encounter Care Teams Cafeteria Server Relationship Specialty Start Date End Date Poly Godoy MD PCP - General 11/24/08 11/18/[address] [place] [phone] documented as of this encounter
--- OUTSIDE RECORDS SUMMARY | 2022-04-08 00:55 | XMS_ITS | Encounter Summary ---
:1980 Author Organization [facility] Address [address] [place] [address] Care Team Providers Name Role Phone Unavailable Primary Care Provider Unavailable Encounter Details Date Type Department Care Team Description 10/30/2008 Hospital Encounter [facility] Kishan Haile MD [facility] Unit [address] [facility] [address] [place] [address] [place] [phone] (Wo rk) Social History Tobacco Use Types [...]
--- OUTSIDE RECORDS SUMMARY | 2022-04-08 00:55 | XMS_ITS | Encounter Summary ---
:1980 Author Organization [facility] Address [address] [place] [address] Care Team Providers Name Role Phone Poly Godoy MD Primary Care Provider Encounter Details Date Type Department Care Team Description 12/30[facility] [address] [place], [place] 111 [facility] [address] [place], [place] [address] [phone] Social History Tobacco Use Types Packs/Day Years Used Date Never Assessed Sex Assigned at Date Recorded Not on file documented as of this encounter Discharge Disposition Disposition Code Departure Means Destination Auto Discharge Home documented in this encounter Progress Notes Ricardo Mai NP - 01/08/2009 1241 EDT DIVISION OF HEMATOLOGY / ONCOLOGY PROGRESS/FOLLOWUP NOTE - 12/30/2008 PURPOSE OF VISIT Management of reported excessive bleeding while under treatment for hypercoagulable syndrome as manifested in a superficial [...] via section on December 08, 2008. Thepatient described a history of intermittent leg swelling throughout her , which she attributed to being . She also experienced a 50-pound weight gain during this . Ultrasound on November 10, 2008, showed no evidence of DVT in either extremity. Approximately two days after giving , the patient experienced pain in her upper thigh, which she described as being sharp and crampy. Ultrasound confirmed a superficial DVT in the right thigh. Ms Duron was initially started on Lovenox 40 mg subcutaneous twice daily. This was increased to 80 mg on December 24, 2008. Blood work from December 24, 2008, which showed a hemoglobin of 13.5, a hematocrit of 39.4, and platelets of 336, all withinnormal limits. This increase in dosing was tolerated well until Monday, December 27, 2008, when the patient noted increased vaginal bleeding. She describes this as needing to change pads every four to five hours during the day and approximately one to two pads in the evening. Ms Duron spoke with the hemotology fellow educational therapy teacher over the weekend regarding her symptoms. She was instructed to hold dosing Monday evening, and to resume dosing Monday at 40mg. On presentation to the clinic this afternoon, Ms Duron complains of fatigue as well as occasional light headedness. She states that she has not taken any Lovenox since Monday evening. She denies shortness of breath or chest pain. She denies leg pain. She is complaining of burning with urination,as well as increased frequency. ALLERGIES ERYTHROMYCIN WHICH CAUSES CRAMPING AND ABDOMINAL PAIN. The patient denies allergies to latex or food. CURRENT MEDICATIONS 1. Multivitamin tablet once per day. 2. Folic acid 1 mg once daily. 3. Lovenox currently on hold. 4. Subutex 8 mg sublingual. 5. Colace 200 mg twice daily. 6. Fenugreek twice daily. REVIEW OF SYSTEMS Ten-point review of systems was reviewed by the patient and myself and is dictated in the chart. Pertinent negatives: No shortness of breath, no chest pain, and no leg pain. Pertinent positives: Increased vaginal bleeding, pain with urination. PHYSICAL EXAMINATION Vital signs: Temperature 36.0, heart rate 68, blood pressure 108/68, and respirations 16. Weight 82.4 kg. Head, eyes, ears, nose and throat: The patient is normocephalic. Ocular movements are intact. There sclerae are clear. The conjunctivae pink. The oropharynx is moist and intact. No evidence of mucosal breakdown. The neck is supple. No lymphadenopathy. Lungs clear to auscultation in all tyson. No wheez es, rales, or rhonchi. Cardiac: S1, S2, with a regular rate and rhythm. No gallop, rub, or murmur. Abdomen: Nontender, nondistended, with positive bowel sounds. There are small scattered hematomas lessthan one-half centimeter in diameter, secondary to Lovenox injections. Lower extremities: The right upper thigh is not painful to palpation. There is a very small palpable cord, less than one-half centimeter in diameter. No tenderness to palpation in the lower extremities. No cyanosis. Both legs are edematous with some mild pitting edema, 1/4. LABORATORY DATA From December 24, 2008: WBC 8.07, hemoglobin 13.5, hematocrit 39.4, and platelets 336. ASSESSMENT Ms Duron is a 28-year-old female, G2, P2, now approximately three weeks post section, with positive superficial DVT by ultrasound, being treated with Lovenox. She was seen emergently todaysecondary to a history of weekend bleeding. Blood work from December 24, 2008, was well within normal limits. We will repeat that this afternoon. We have asked the patient to continue with her prophylactic dosing 40 mg subcutaneous daily. Based on the patients complaints of increased urinary frequency, we will also send a urine culture. I have also asked the patient to follow up with OB-AIR CREW OFFICER. PLAN 1. Anticoagulation: Continue Lovenox 40 mg subcutaneous, increase to full dosing based on cessation of bleeding and blood work results. Length of anticoagulation was initially at four weeks, which would be approximately to the end of January. 2. Urinary tract infection: We will follow results of cultures sent this afternoon and treat as needed. 3. Tobacco: Ms Duron continues to smoke approximately one-half pack per day. We continue to encourage her to enroll in a smoking cessation program. 4. Followup: We will see the patient on a p.r.n. basis. ADDENDUM: Laboratory results 12/30/08: WBC 7.53, Hbg 12.8, Hct 36.8. Plts 272, Microbiology, Urine culture, less than 10,000CFU/ml Electronically Signed by Ricardo Mai APRN 01/08/2009 12:41 Dictated by: Ricardo Mai APRN - Ricardo Mai APRN P - T[facility] Job ID: [id number] Document ID: [id number] cc: Rocael Manley MD,PhD MD Estelle Hester MD documented in this encounter Plan of Treatment Not on filedocumented as of this encounter Visit Diagnoses Not on filedocumented in this encounter Care Teams Mgmt Consultant Relationship Specialty Start Date End Date Poly Godoy MD PCP - General 11/24/08 11/18/[address] [place] [phone] documented as of this encounter
--- OUTSIDE RECORDS SUMMARY | 2022-04-08 00:55 | XMS_ITS | Encounter Summary ---
:1980 Author Organization [facility] Address [address] [place] [address] Care Team Providers Name Role Phone Poly Godoy MD Primary Care Provider Encounter Details Date Type Department Care Team Description 05/12/2009 Abstract Used for ABSTRACTING Data Poly Godoy MD [phone] [facility] [address] [place] [address] (Wo rk) Social History Tobacco [...] on filedocumented in this encounter Care Teams Pegger Relationship Specialty Start Date End Date Poly Godoy MD PCP - General 11/24/08 11/18/10 [address] [place] [address] documented as of this encounter
--- OUTSIDE RECORDS SUMMARY | 2022-04-08 00:55 | XMS_ITS | Encounter Summary ---
:1980 Author Organization [facility] Address [address] [place] [address] Care Team Providers Name Role Phone Poly Godoy MD Primary Care Provider Encounter Details Date Type Department Care Team Description 11/18/2021 Lab Requisition [facility] Outr Resulting Lab, Pathology & Laboratory Provider [facility] [address] [place], [place] [id number] Social History Tobacco Use Types Packs/Day Years Used Date Current Every Day Smoker 0.25 Alcohol Use Standard Drinks/Week Comments No 0 (1 standard drink = 0.6 oz pure alcoho l) Sex Assigned at Date Recorded Not on file documented as of this encounter Plan of Treatment Not on filedocumented as of this encounter Procedures Procedure Name Priority Date/Time Associated Comments Diagnosis HIV 1/2 ANTIGEN AND Routine 11/17/2021 16:00 Resu lts for this ANTIBODY, 4TH EDT procedure are in GENERATION the results section. documented in this encounter Results HIV 1/2 ANTIGEN AND ANTIBODY, 4TH GENERATION (11/17/2021 16:00 EDT) HIV 1 and 2 NegativeComment: If Negative [facility] Antibody/p24 acute HIV-1 LABORATORY Antigen, 4th infection is SERVICES Generation suspected in a high risk patient, submit plasma specimen for HIV-1 RNA quantitation test. Specimen Blood - Venous blood (substance) Narrative [facility] - 11/19/2021 12:48 EDT Fourth Generation assay performed on the Siemens Centaur XPT. Performing Organization Address City/State/ZIP Code Phon e Number [facility] [address] [place] [address] SERVICES documented in this encounter Visit Diagnoses Not on filedocumented in this encounter Care Teams Area Director Of Home Health Sales Relationship Specialty Start Date End Date Poly Godoy MD PCP - General 06/21/[address] [place] [phone] documented as of this encounter
--- OUTSIDE RECORDS SUMMARY | 2022-04-08 00:55 | XMS_ITS | Encounter Summary ---
:1980 Author Organization [facility] Address [address] [place] [address] Care Team Providers Name Role Phone Poly Molina MD Primary Care Provider Reason for Visit Reason Comments Rash pruritic rash since 0900 hrs this am took 50mg benadryl @0910 Encounter Details Date Type Department Care Team Description 02/19/2009 Emergency [facility] Korey Moore MD [address] [place] [address], Level [address] [place] [address] Allergy, Unspecified Emergency Department Emergency, MD Muna not Elsewhere - [facility] Classified [address] [place] [phone] Social History Tobacco Use Types Packs/Day Years Used Date Current Every Day Smoker 1 Alcohol Use Standard Drinks/Week Comments No 0 (1 standard drink = 0.6 oz pure alcoho l) Sex Assigned at Date Recorded Not on file documented as of this encounter Last Filed Vital Signs Vital Sign Reading Time Taken Comments Blood Pressure 91/62 02/19/2009 0948 EDT Pulse 80 02/19/2009 0948 EDT Temperature 36.5 ??C (97.7 ??F) 02/19/2009 0948 EDT Respiratory Rate 16 02/19/2009 0948 EDT Oxygen Saturation 94% 02/19/2009 0948 EDT Inhaled Oxygen Concentration - - Weight - - Height - - Body Mass Index - - documented in this encounter Discharge Instructions Korey Mann MD - 02/19/2009 Return if symptoms worsen or new symptoms develop. Use benadryl as instructed STOP AUGMENTIN!!! AttachmentsThe following attachments cannot be sent through Care Everywhere. Allergic Reaction: After Your Visitdocumented in this encounter Medications at Time of Discharge Medication Sig Dispensed Refills Start Date End Date buprenorphine-naloxone Place 16 mg under 0 (SUBOXONE) 2-0.5 mg Subl the tongue daily. amoxicillin-clavulanate Take 1 Tab by mouth 0 04/08/2009 (AUGMENTIN) 875-125 mg per every 12 hours. [...] 0 08/20/2010 documented as of this encounter Ordered Prescriptions Prescription Sig Dispensed Refills Start Date End Date diphenhydramine (SOMINEX) Take 1 Tab by 30 3 009 08/20/2010 25 mg tablet mouth at bedtime as needed for Sleep. documented in this encounter Discharge Disposition Disposition Code Departure Means Destination Home or Self Care Car Home documented in this encounter ED Notes Korey Moore MD - 02/19/2009 1045 EDT Chief Complaint Patient presents with ??? Rash pruritic rash since 0900 hrs this am took 50mg benadryl @0910 Patient is a 28 y.o. female presenting with rash. The history is provided by the patient. Rash The current episode started yesterday. The problem has been gradually worsening. The problem is associated with new medications. There has been no fever. The rash is present on the torso and trunk. Sheis experiencing no pain. Associated symptoms include itching. She has tried antihistamines for the symptoms. The treatment provided mild relief. Risk factors include new medications. Review of Systems Constitutional: Positive for fatigue. Negative for fever and appetite change. HENT: Negative for congestion, facial swelling and neck stiffness. Eyes: Negative for pain, discharge and itching. Respiratory: Negative for chest tightness, shortness of breath and wheezing. Cardiovascular: Negative for chest pain and palpitations. Gastrointestinal: Negative for nausea, vomiting, abdominal pain and diarrhea. Genitourinary: Negative for dysuria, urgency and frequency. Skin: Positive for itching. Urticaria over entire body No swelling of lips,tongue,or throat Neurological: Negative for dizziness, facial asymmetry, speech difficulty and headaches. Hematological: Negative for adenopathy. Does not bruise/bleed easily. Psychiatric/Behavioral: Negative for confusion and agitation. The patient is not nervous/anxious. Past Medical History Diagnosis Date ??? 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 Orthopedic surgery Bose rods back Allergies Allergen Reactions ??? Azithromycin History Substance Use Topics ??? Tobacco Use: Yes -- 1.0 packs/day ??? Alcohol Use: No No family history on file. BP 91/62 Pulse 80 Temp(Src) 36.5 ??C (97.7 ??F) (Tympanic) Resp 16 SpO2 94% Physical Exam Constitutional: She is oriented. She appears well-developed and well-nourished. HENT: Head: Normocephalic and atraumatic. Right Ear: External ear normal. Left Ear: External ear normal. Mouth/Throat: Oropharynx is clear and moist. No swelling of lips,tongue,or throat Eyes: Conjunctivae are normal. Pupils are equal, round, and reactive to light. Neck: No adenopathy. No tracheal deviation present. Cardiovascular: Normal rate, regular rhythm, normal heart sounds and intact distal pulses. Pulmonary/Chest: Effort normal and breath sounds normal. No stridor. She has no wheezes. Abdominal: No tenderness. She has no rebound and no guarding. Musculoskeletal: She exhibits no edema and no tenderness. Neurological: She is alert and oriented. She displays facial symmetry. Skin: Total body urticara Psychiatric: She has a normal mood and affect. Radiology orders: None Procedures Consult orders: None ED Course: Pt will be discharged home. MDM Number of Diagnoses and Management Options Allergy, Unspecified not Elsewhere Classified: new, needed workup Amount and/or Complexity of Data Reviewed Review and summarize past medical records: yes Risk of Complications, Morbidity, and/or Mortality Presenting problems: moderate Diagnostic procedures: minimal Management options: moderate Patient Progress Patient progress: stable Encounter Diagnoses Code Name Primary? Qualifier ??? 995.3 Allergy, Unspecified not Elsewhere Classified PCP: POLY MOLINA APRN 02/19/2009 5:04 PM Danielle Casillas RN - 02/19/2009 0952 EDT Pt states currently on augmentin for a vaginal infection anielle Cuenca RN - 02/19/2009 0951 EDT Pt pmhx- also on suboxone for narcotic maintenance documented in this encounter Miscellaneous Notes Scanned Note-Null - Inpatient, MD Jairo - 02/20/2009 1517 EDT documented in this encounter Plan of Treatment Not on filedocumented as of this encounter Visit Diagnoses Diagnosis Allergy, unspecified not elsewhere class ified documented in this encounter Historical Medications This list may reflect changes made after this encounter. Medication Sig Dispensed Refills Start Date End Date buprenorphine-naloxone Place 16 mg under 0 (SUBOXONE) 2-0.5 mg Subl the tongue daily. amoxicillin-clavulanate Take 1 Tab by mouth 0 04/08/2009 (AUGMENTIN) 875-125 mg every 12 hours. per tablet added in this encounter Care Teams Shell Machine Operator Relationship Specialty Start Date End Date Poly Molina MD PCP - General 11/24/08 11/18/[address] [place] [phone] documented as of this encounter
--- OUTSIDE RECORDS SUMMARY | 2022-04-08 00:56 | XMS_ITS | Encounter Summary ---
:1980 Author Organization [facility] Address [address] [place] [address] Care Team Providers Name Role Phone Unavailable Primary Care Provider Unavailable Encounter Details Date Type Department Care Team Description 03/04/2008 Hospital Encounter [facility]- Carey Tejeda [facility] MD Stephanie [address] [place] [address] [address] [phone] Level 1 [place] [address] (Wo rk) Social History Tobacco Use Types [...]
--- OUTSIDE RECORDS SUMMARY | 2022-04-08 00:56 | XMS_ITS | Encounter Summary ---
:1980 Author Organization [facility] Address [address] [place] [address] Care Team Providers Name Role Phone Poly Godoy MD Primary Care Provider Encounter Details Date Type Department Care Team Description 03/07/2008 Office Visit [facility] - Eunice Mercer MD [facility] [address] [place] [address] [place], [place] [phone] (Wo rk) Social History Tobacco Use Types Packs/Day Years Used Date Never Assessed Sex Assigned at Date Recorded Not on file documented as of this encounter Progress Notes Kailyn Mercer - 09/25/2009 1759 EST Care Center - Physician Summary Registration Date/Time: 03/07/2008 9:42 Arrived- By private vehicle. Historian- patient. HISTORY OF PRESENT ILLNESS Chief Complaint- EYE REDNESS. This started about 5 days ago. Seen here 2 days ago and diagnosed withleft conjunctivitis. Started on Polytrim eye drops which she has been using but has not had any improvement. Now has stuffy nose and sore throat. , involves the left eye and is characterized as moderate in severity. She did not sustain an injury. Associated symptoms: Eye discharge. Mild left eyelid swelling. No eye pain, eye itching, photophobiaor decreased vision. REVIEW OF SYSTEMS The patient has had a sore throat. No fever or cough. PAST HISTORY Recently off suboxone treatment (last dose 7 days ago).. The patient does not wear contact lenses (and aware she needs corrective lenses but has no eye- glasses or contacts). Medications: None. Was using clonidine 0.1mg tabs prn and hydroxyzine prn insomnia over past week while withdrawing from suboxone. She reports has used only few doses of these and didn't have much effect so no longer using either of these meds.. Allergies: No known drug allergies. SOCIAL HISTORY Smoker (about 10 cigs/day.). History of drug use: Is a recovering addict. No alcohol use. ADDITIONAL NOTES The nursing notes have been reviewed. PHYSICAL EXAM Appearance: Alert. No acute distress. Does not appear to be anxious. Vital Signs: Have been reviewed. HEENT: Ears normal. Mild pharyngeal erythema. left nares very congested with mucous. No tonsillar exudate. Eyes: Visual acuity noted- see nurse's notes. Pupils equal, round and reactive to light. Accommodation normal. Funduscopic exam normal. EOMs intact. Periorbital areas appear normal to inspection. Rt Eye: Right eye exam normal. Lt Eye: Mild eyelid edema and erythema. Conjunctival edema. Injected conjunctiva. No foreign body under the eyelid. No exudate present. No subconjunctival hemorrhage, conjunctival foreign body, injury to the conjunctivaor corneal foreign body. Neck: No lymphadenopathy. Respiratory: Breath sounds normal. CLINICAL IMPRESSION Left viral conjunctivitis. Lifestyle / substance problems (recovering from narcotic abuse. Currently smoker.). Viral upper respiratory infection. INSTRUCTIONS (You may continue using the polytrim eye drops 4x/day for another 5 days although these will not hasten your recovery, the eye drops may help prevent a secondary problem. You should start to see improvement in 3 days. Follow up if no improvement in 4 days.). (Electronically signed by Kailyn Mercer MD 03/07/2008 19:23) Care Center - Nursing Summary Registration Date/Time: 03/07/2008 9:42 TRIAGE Initial Assessment BP: 90 / 60. HR: 72. RR: 16. Temp: 97.7. --953 Alannah Garcia R.N. Visual acuity performed without corrective lenses: left eye 20/50; right eye 20/30. --999 Alannah Garcia R.N.. Medications Clonidine (not klonipin ). (Hydroxyzine. Klonopin. ). --953 Alannah Garcia R.N.. Allergies No history of allergy to LATEX. No known drug allergies. --955 Alannah Garcia R.N.. History Location (eye; with > itching, redness, and drainage). Pain level now: 4/10. (sore throat andnasal congestion on left). Previous treatment: Previously seen (03/04). PAST HX: Negative. (lema rods). SOCIAL HX: Smoker: less than 1 pack per day. No alcohol use. No report of abuse. Arrived by private vehicle. Historian: patient. --953 Alannah Garcia R.N. Previous treatment: (Polytrim ophthalmic solution: Instill 1 drop into affected eye every 3 hours while awake). --955 Alannah Garcia R.N.. PAST HX. PHYSICAL ASSESSMENT Alert. Oriented X 3. Skin is warm and dry. --955 Alannah Garcia R.N.. DISPOSITION / DISCHARGE Condition at departure: unchanged. Patient reports pain level on departure as 4/10. No learning barriers present. Discharge instructions reviewed with thepatient. Patient verbalized understanding. Written instructions provided in German. The patient was discharged home. The patient left the Emergency Department ambulatory and via private vehicle. Patient driving. Departure time: 10:42. --1042Shelly Hawkins R.N.. Locked/Released at 03/07/2008 10:42 by Shelly Hawkins R.N. documented in this encounter Plan of Treatment Not on filedocumented as of this encounter Visit Diagnoses Not on filedocumented in this encounter Care Teams Early Childhood Coordinator Relationship Specialty Start Date End Date Poly Godoy MD PCP - General 11/24/08 11/18/10 [facility] [address] [phone] documented as of this encounter
--- OUTSIDE RECORDS SUMMARY | 2022-04-08 00:56 | XMS_ITS | Encounter Summary ---
:1980 Author Organization [facility] Address [address] [place] [address] Care Team Providers Name Role Phone Poly Godoy MD Primary Care Provider Encounter Details Date Type Department Care Team Description 09/04/2008 Office Visit [facility] - Ray Vanegas PA-C [address] conversion [address] [place] [phone] (Wo rk) Social History Tobacco Use Types Packs/Day Years Used Date Never Assessed Sex Assigned at Date Recorded Not on file documented as of this encounter Progress Notes Ashvin Vanegas PA - 09/18/2009 1552 EST Department - Physician Summary Registration Date/Time: 09/04/2008 14:39 Arrived- By private vehicle. Historian- patient. HISTORY OF PRESENT ILLNESS Chief Complaint: Wants to stop drug use. Symptoms started years ago. Substances abused: methadone. She has had nausea. No fever, chills, abdominal pain, tremors or seizure. No agitation or delusions. Not confused. The symptoms are described as mild. The patient has had similar symptoms previously. Not recently seen/assessed. REVIEW OF SYSTEMS The patient has had a mild sore throat (today). No fever, chills, nasal congestion or discharge or chest pain. No nausea, vomiting, abdominal pain, pelvic pain or vaginal discharge. No abnormalbleedingor headache. PAST HISTORY See nurses notes. 24 weeks pregant. Medications: The patient's medications have been reviewed. Allergies: The patient's allergies have been reviewed. ADDITIONAL NOTES The nursing notes have been reviewed. PHYSICAL EXAM Appearance: Alert. No acute distress. Vital Signs: Have been reviewed. Head: Head atraumatic. ENT: Pharyngeal erythema. No tonsillar exudate. Neck: Neck supple. CVS: Normal heart rate and rhythm. Heart sounds normal. Pulses normal. Respiratory: No respiratory distress. Breath sounds normal. Abdomen: Nontender gravid uterus palpable to midpoint between umbilicus and xiphoid (24 weeks ). Normal heart tones. movement noted. Abdomen soft. Back: No CVA tenderness. Skin: Normal skin color. Extremities: No lower extremity edema. Neuro: No alteration in mental status. PROGRESS AND PROCEDURES Discussed case with physician OB-BACK TACKER. Reviewed test results. Agreed upon treatment plan and needfor patient follow-up. Patient/family counseled. Additional history sought. Old medical records ordered. ED Attending on duty and available for supervision: Steve Gardner. Disposition: Condition: good. Discharged home. CLINICAL IMPRESSION Substance abuse (methadone). INSTRUCTIONS Warnings: GENERAL WARNINGS: Return or contact your physician immediately if your condition worsens or changes unexpectedly, if not improving as expected, or if other problems arise. Follow-up: Follow up with an voicer [phone]. Call for the next available appointment. (Electronically signed by Denisse Petty 09/04/2008 22:31) Addenda for YANA DURON VisitID: [id number] Date: 09/04/2008 09/04/2008 14:19 [facility] REFERS PT TO ED FOR EVAL. CC: OPIATE / MARIJUANA DETOX. 80mg METHADONE, SNORTED 4x WEEK. 26 WEEKS signed by Naveen Kim - 09/04/2008 14:19) Department - Nursing Summary Registration Date/Time: 09/04/2008 14:39 TRIAGE Initial Assessment Acuity: LEVEL 4. BP: 104 / 53. HR: 82. RR: 16. Temp: oral 36.8. Alert. No acute distress. --1439 Donald Donahue R.N.. Medications Paxil: daily (60mg). --1439 Donald Donahue R.N.. Allergies AZITHROMYCIN- symptoms consisted of nausea (abd pain). --143 Donald Donahue R.N.. History Chief Complaint: (For [facility] clearance). Pain level now: 0/10. (opiate, marijuana , methadone abuse, leg swelling, Blood sugars low). Treatment JAVA ORACLE DEVELOPER: (Pending housing @ [facility]). PAST HX: Scoliosis (w [place] rods). (). Last normal menstrual period- . Currently : 26 weeks nocomplications. SOCIAL HX: Smoker: 1 pack per day. No alcohol use. No report of abuse. Historian: patient. --143 Donald Donahue R.N.. PAST HX. NURSING PROGRESS NOTES ( heart beat RLQ- 149 bpm). --1522 Lindsey Pisaon R.N.. DISPOSITION / DISCHARGE Condition at departure: stable. Patient reports pain level on departure as 0/10. No learning barriers present. Discharge instructions reviewed with the patient. Reviewed referrals (To [facility]). Patientverbalized understanding. Written instructions provided in Upper Sorbian. The patient was discharged ([facility]). The patient left the Emergency Department ambulatory and via (by [facility] personnel). --1540 Lindsey Pisano R.N.. Donald Pisano R.N. Locked/Released at 09/05/2008 7:33 by Mary Eric R.N. documented in this encounter Plan of Treatment Not on filedocumented as of this encounter Visit Diagnoses Not on filedocumented in this encounter Care Teams Store Warehouse Associate Relationship Specialty Start Date End Date Poly Godoy MD PCP - General 11/24/08 11/18/[address] [place] [phone] documented as of this encounter
--- OUTSIDE RECORDS SUMMARY | 2022-04-08 00:56 | XMS_ITS | Encounter Summary ---
:1980 Author Organization [facility] Address [address] [place] [address] Care Team Providers Name Role Phone Poly Molina MD Primary Care Provider Encounter Details Date Type Department Care Team Description 11/13/2006 Results Only [facility] - Poly Palma MD conversion [address] [place] [phone] (Wo rk) Social History Tobacco Use Types Packs/Day Years Used Date Never Assessed Sex Assigned at Date Recorded Not on file documented as of this encounter Plan of Treatment Not on filedocumented as of this encounter Procedures Procedure Name Priority Date/Time Associated Diagnosis Comme nts CYTOPATHOLOGY Routine 11/13/2006 0:00 EDT Results for this procedure are i n the results section . documented in this encounter Results CYTOPATHOLOGY (11/13/2006 0:00 EDT) Pathology Report: CYTOPATHOLOGY REPORT [facility] Reports generated via electronic interface contain sammy ginal data; however they are lacking the format of the original re port. Caution should be taken when reading/interpreting unfo rmatted reports. Name: ? YANA DURON ? Accession #: ? [id number] : ? 1980 (Age: 26) ??F ?Collect Date: ? 04/0 04/2007 Location: ? [facility] ? Receive Date : ? 2006 Provider: ?POLY MOLINA MD Copy to: ? Specimen/Source: ? ThinPrep Pap Test, Cervix/Endocervix, processed on [employer] ThinPrep Imaging System, with manual evaluation Last Menstrual Period: ? 09/28/06 Menstrual/ Status: ? Other: ? HPVDX - HPV testing requested regardless of diag nosis on current ThinPrep Pap test. ? SPECIMEN ADEQUACY ? Satisfactory for Evaluation - transformation zone component present GENERAL CATEGORIZATION ? Negative for Intraepithelial Lesion or Malignan cy ? Document reviewed and electronically signed by: ? INGE Benz(ASCP) ? Report Date: ??11/16/2006 12:46 End of Report Specimen Performing Organization Address City/State/ZIP Code Phon e Number [facility] [address] [place] [address] SERVICES [facility] [address] [place] [address] documented in this encounter Visit Diagnoses Not on filedocumented in this encounter Care Teams Broomcorn Press Feeder Relationship Specialty Start Date End Date Poly Molina MD PCP - General 11/24/08 11/18/[address] [place] [phone] documented as of this encounter
--- OUTSIDE RECORDS SUMMARY | 2022-04-08 00:56 | XMS_ITS | Encounter Summary ---
:1980 Author Organization [facility] Address [address] [place] [address] Care Team Providers Name Role Phone Poly Godoy MD Primary Care Provider Encounter Details Date Type Department Care Team Description 03/04/2008 Office Visit [facility] - Brianna Krishna MD [address] [address] [place] [phone] (Wo rk) Social History Tobacco Use Types Packs/Day Years Used Date Never Assessed Sex Assigned at Date Recorded Not on file documented as of this encounter Progress Notes Carey Tejeda MD - 09/25/2009 4228 EST Care Center - Physician Summary Registration Date/Time: 03/04/2008 13:16 Arrived- By private vehicle. Historian- patient. HISTORY OF PRESENT ILLNESS Chief Complaint- EYE REDNESS. This started yesterday, involves the left eye and is characterized as moderate in severity. She did not sustain an injury. Associated symptoms: Eye redness, irritation and discharge. No eye pain, photophobia, decreased vision or loss of vision. REVIEW OF SYSTEMS No fever, sore throat or cough. PAST HISTORY See nurses notes. She does not wear contact lenses. Medications: hydroxyzine, Klonopin. The patient's medications have been reviewed. Allergies: No known drug allergies. The patient's allergies have been reviewed. SOCIAL HISTORY Smoker: less than 1 pack per day. No alcohol use. ADDITIONAL NOTES The nursing notes have been reviewed. PHYSICAL EXAM Appearance: Alert. Oriented X3. No acute distress. Vital Signs: Have been reviewed. Eyes: Visual acuity noted- see nurse's notes. Eyelids appear normal to inspection. Conjunctivae and sclerae appear normal to inspection. Corneas appear normal to inspection. Pupils equal, round and reactive to light. Accommodation normal. EOMs intact. Periorbital areas appear normal to inspection. Rt Eye: Right eye exam normal. Lt Eye: Left eye exam normal. Mild eyelid erythema. Moderately injected conjunctiva. Moderate exudate present. No injury to the periorbital area or corneal foreign body. No injury to the eyelids. Respiratory: No respiratory distress. Skin: No rash. Extremities: Extremities negative. Neuro: Oriented X 3. Mood/affect normal. PROGRESS AND PROCEDURES E.D. Course: Dispensed polytrim eye drops from [facility].. Patient/family counseled. Disposition: Condition: stable. Discharged home. CLINICAL IMPRESSION Acute left conjunctivitis. INSTRUCTIONS (Please return if youdevelop any of the warning signs listed. Please wash hand frequently and avoid placing your hands near your eyes.). Warnings: GENERAL WARNINGS: Return or contact your physician immediately if your condition worsens or changes unexpectedly, if not improving as expected, or if other problems arise. Prescription Medications: Polytrim ophthalmic solution: Instill 1 drop into affected eye every 3 hours while awake (max 6 doses per day) for 1 week. Dispense 5 mL. No refills. Generic substitute OK (Dispensed at [facility]). (Electronically signed by Carey Tejeda MD 03/07/2008 15:58) Addenda for YANA DURON VisitID: [id number] Date: 03/04/2008 03/04/2008 13:19 Pt was self referred to [facility]. Pt will call and notify their PCP of visit. signed by Yuan Pierce - 03/04/2008 13:19) Care Center - Nursing Summary Registration Date/Time: 03/04/2008 13:16 TRIAGE Initial Assessment Triage time 14:20. BP: 100/66 sitting. HR: 80 regular. RR: 18 regular. Temp: 98.2 F (temporal). Visual acuity performedwithout corrective lenses: left eye 20/80; right eye 20/15 minus one letter; both eyes 20/15 minus one letter. Patient does not wear corrective lenses. --142 Yoshi Staley, . Medications Hydroxyzine. Klonopin. --151 Catina BishopP.N.. Allergies No known drug allergies. --151 Wilton Bishop.P.N.. History Chief Complaint: PINK EYE TO LEFT EYE. This started yesterday. The patient did not sustain an injury. Pain level now: 110. Arrived by private vehicle. Historian: patient. --1421 Yosih Staley, The patient has had eye irritation and eye discharge. PAST HX: Glaucoma. No history of prior eyeinjury. The patient does not wear contact lenses. History of previous surgery. Back surgery. SOCIAL HX: Smoker: less than 1 pack per day. No alcohol use. No report of abuse. --1510 Roxanne Pascual L.P.N. History correction to prior entry - patient does not have glaucoma. --1526 Catina BishopP.N.. PHYSICAL ASSESSMENT Ambulatory to room. Alert. Moderate redness of the left conjunctiva.(swollen left eyelid). Skin is warm and dry. --151 Catina BishopP.N.. NURSING PROGRESS NOTES Patient identifiers checked. Call light placed in reach. Bed placedin lowest position. Brakes of bedon. Patient ready for evaluation. --1512 Catina BishopP.N. (Dr. Tejeda present and available during services provided). --1524 Catina BishopP.N. (Visual Acuity redone- left eye 20/80, right eye 20/15). --1530 Wilton Bishop.P.N.. DISPOSITION / DISCHARGE Condition at departure: unchanged. Patient reports pain level on departure as 1/10. No learning barriers present. Discharge instructions reviewed with the patient. Reviewed warnings (reviewed with patient). Reviewed medication dosing and course; prescription (s) given to the patient (Polytrim). Patient verbalized understanding. Written instructions provided in Sammarinese. The patient was discharged home. The patient left the Emergency Department ambulatory and via private vehicle. Patient driving. --7323 Roxanne Pascual L.P.N.. Locked/Released at 03/04/2008 16:04 by Roxanne Pascual L.P.N. documented in this encounter Plan of Treatment Not on filedocumented as of this encounter Visit Diagnoses Not on filedocumented in this encounter Care Teams Mobile Qa Tester Relationship Specialty Start Date End Date Poly Godoy MD PCP - General 11/24/08 11/18/[address] [place] [phone] documented as of this encounter
--- OUTSIDE RECORDS SUMMARY | 2022-04-08 00:56 | XMS_ITS | Encounter Summary ---
:1980 Author Organization [facility] Address [address] [place] [address] Care Team Providers Name Role Phone Unavailable Primary Care Provider Unavailable Encounter Details Date Type Department Care Team Description 03/07/2008 Hospital Encounter [facility]- Kailyn Mercer MD [address] [facility] [address] [place] [phone] [facility] Patel Sanders MD [address] [place] [phone] [address] [place], [place] [id number] Social History Tobacco Use Types Packs/Day Years Used Date Never Assessed Sex Assigned at Date Recorded Not on file documented as of this encounter Discharge Disposition Disposition Code Departure Means Destination Auto Discharge documented in this encounter Plan of Treatment Not on filedocumented as of this encounter Procedures Procedure Name Priority Date/Time Associated Diagnosis Comme nts CYTOPATHOLOGY Routine 05/08/2008 0:00 EDT Results for this procedure are i n the results section . documented in this encounter Results CYTOPATHOLOGY (05/08/2008 0:00 EDT) Pathology Report: CYTOPATHOLOGY REPORT ? [facility] ? LAB Reports generated via electr onic interface contain original data; ? however they are lacking the format of the original report. ? Caution should be taken when reading/interpreting unformatted reports. ? Name: ? GÉNESIS DURON ? Accession #: ? [id number] ? : ? 1980 (Age: 27) ??F ?Collect Date: ? 05/08/2008 ? Location: ? [facility] ? Receive Date: ? 05/09/2008 ? Provider: ?SRIDEVI MOLINA MD ? Copy to: ? Specimen/Source: ? Pap Test, Cervix/Endocervix, ThinPrep Imaging System ? with manual evaluation ? Last Menstrual Period: ? 07/24/08 ? Menstrual/ Status: ? Other: ? HPVA - HPV testing requested if ASC-US on the current ThinPrep Pap test. ? SPECIMEN ADEQUACY ? Satisfactory for Eval uation ? - transformation zone compon ent present ? GENERAL CATEGORIZATION ? Negative for Intraepi thelial Lesion or Malignancy ? INTERPRETATION ? Fungal organisms pres ent morphologically consistent with Debbie species. ? Document reviewed and electr onically signed by: ? Lynan Toro, CT(ASCP) ? Report Date: ??10/07/ 2008 12:34 ? End of Report ? Specimen Performing Organization Address City/State/ZIP Code Phon e Number [facility] [address] [place] [address] [facility] [address] [place] [address] documented in this encounter Visit Diagnoses Not on filedocumented in this encounter
--- OUTSIDE RECORDS SUMMARY | 2022-04-08 00:56 | XMS_ITS | Encounter Summary ---
:1980 Author Organization [facility] Address [address] [place] [address] Care Team Providers Name Role Phone Unavailable Primary Care Provider Unavailable Encounter Details Date Type Department Care Team Description 01/25/2007 Hospital Encounter [facility] - Viri Godoy MD Other [address] [place] [phone] (Wo rk) Social History Tobacco Use Types [...]
--- OUTSIDE RECORDS SUMMARY | 2022-04-08 00:56 | XMS_ITS | Encounter Summary ---
:1980 Author Organization [facility] Address [address] [place] [address] Care Team Providers Name Role Phone Unavailable Primary Care Provider Unavailable Encounter Details Date Type Department Care Team Description 11/27/2000 Hospital Encounter [facility] - [place], Main [address] [address] Social History Tobacco Use Types Packs/Day Years [...]
--- OUTSIDE RECORDS SUMMARY | 2022-04-08 00:56 | XMS_ITS | Encounter Summary ---
:1980 Author Organization [facility] Address [address] [place] [address] Care Team Providers Name Role Phone Unavailable Primary Care Provider Unavailable Encounter Details Date Type Department Care Team Description 02/06/2008 Hospital Encounter [facility] Zafar Begum [facility] MD Subhash [address] [facility] [address] [place] [address] [facility] [phone] [place] [phone] (Wo rk) Social History Tobacco Use Types Packs/Day Years Used Date Never Assessed Sex Assigned at Date Recorded Not on file documented as of this encounter Discharge Disposition Disposition Code Departure Means Destination Auto Discharge documented in this encounter Plan of Treatment Not on filedocumented as of this encounter Procedures Procedure Name Priority Date/Time Associated Diagnosis Comme nts RAPID STREP Routine 02/06/2008 11:00 EDT Results for this procedure are i n the results section . documented in this encounter Results RAPID STREP (02/06/2008 11:00 EDT) Pathologist Sig nature Rapid Strep A Screen Pos [facility] Specimen Performing Organization Address City/State/ZIP Code Phon e Number [facility] [address] [place] [address] [facility] [address] [place] [address] documented in this encounter Visit Diagnoses Not on filedocumented in this encounter
--- OUTSIDE RECORDS SUMMARY | 2022-04-08 00:56 | XMS_ITS | Encounter Summary ---
:1980 Author Organization [facility] Address [address] [place] [address] Care Team Providers Name Role Phone Poly Godoy MD Primary Care Provider Encounter Details Date Type Department Care Team Description 02/06/2008 Office Visit [facility] - Ned Briones MD [address] [facility] [address] [place] [address] [facility] [phone] [place] [phone] (Wo rk) Social History Tobacco Use Types Packs/Day Years Used Date Never Assessed Sex Assigned at Date Recorded Not on file documented as of this encounter Progress Notes Marco Begum MD - 09/25/2009 1356 EST Care Center - Physician Summary Registration Date/Time: 02/06/2008 10:16 Arrived- By private vehicle. Historian- patient. HISTORY OF PRESENT ILLNESS Chief Complaint: SORE THROAT. This started about 3 days and is still present. It was abrupt in onset. Pain described as moderate. She has had a sore throat, nasal congestion and ear pain. No mouth sores, nasal discharge, toothache or swollen jaw or face. No jaw pain or facial pain. (sore throat, lots of mucous in back of throat from nose.). The patient has had similar symptoms previously. (has had several pharyngitides over past few monthspossibly due to her being at [facility] around lots of other people.). Not recently seen/assessed. REVIEW OF SYSTEMS The patient has had fever and nausea. She has had a cough (rare because of mucous in back of throat). Currently : post . She has had a moderate, intermittent frontal headache. She has hadenlarged right neck and left neck lymph nodes. No difficulty breathing, chest pain, diarrhea, abdominal pain or difficulty with urination. No vomiting. No joint pain (but has had some myalgias). PAST HISTORY hx narcotics addicition in remission. 7 months post , child doing well. . Medications: (suboxone). SOCIAL HISTORY Smoker: less than 1 pack per day. History of drug use: Is a recovering addict. No alcohol use. Residence: [facility]. ADDITIONAL NOTES The nursing notes have been reviewed. PHYSICAL EXAM Appearance: Alert. No acute distress. Vital Signs: Have been reviewed. Eyes: Mild redness on the right and left. No exudate on the right or left. ENT: Ears normal. Moderate, thin, white nasal discharge present (congested red). Moderate generalized pharyngeal erythema with right tonsillar swelling and left tonsillar swelling. No pharyngeal vesicles or ulcerations. No right tonsillar exudate or left tonsillar exudate. Lips normal. Gums normal. Notrismus. Neck: Mild right anterior neck and moderate left anterior neck lymphadenopathy present. Trachea midline. Necksupple. CVS: Normal heart rate and rhythm. Heart sounds normal. Respiratory: No respiratory distress. Breath sounds normal. Skin: Normal skin color. No rash. Neuro: Oriented X 3. LABS, X-RAYS, AND EKG Microbiology: Strep screen: positive. PROGRESS AND PROCEDURES Disposition: Discharged home in good condition. CLINICAL IMPRESSION Acute streptococcal pharyngitis. INSTRUCTIONS (As noted acetaminophen every 4 hours as needed while awake, ibuprofen every 6-8 hours as needed [600 mgs] and frequent salt water gargles with bakingsoda added.). Your Current Medications: Continue taking the following medications: suboxone. Prescription Medications: Penicillin V 500 mg: take 1 tab orally every 8 hours for 10 days. No refills. OTC Medications: Motrin IB 200 mg (available over the counter): take 2 orally every 6 hours as needed. Follow-up: Follow up with your doctor if not better. Understanding of the discharge instructions verbalized by patient. (Electronically signed by Marco Begum MD 02/06/2008 16:33) Addenda for YANA DURON VisitID: [id number] Date: 02/06/2008 02/06/2008 10:17 Pt was self referred to [facility]. Pt will call and notify their PCP of visit. signed by Tyshawn Prasad - 02/06/2008 10:17) Care Center - Nursing Summary Registration Date/Time: 02/06/2008 10:16 TRIAGE Assessment Triage time 10:52. BP: 82 / 44 sitting. HR: 104 regular. RR: 16 regular. Temp: 101.8 oral. --1055 Seth Hagen, BP: 98 / 62 lying R arm auto. HR: 90. --1108 Lelia Venegas R.N. BP: 89 / 60 standing R arm auto. HR: 103. --1110 Lelia Venegas RJohannaN.. Medications (seboxin 4mg, ). --1104 Lelia Venegas R.N.. Allergies No known drug allergies. --1104 Lelia Venegas R.N.. History Chief Complaint: SORE THROAT. This is a recurrent problem (3 days ago). Pain level now: 7/10. Reports chills and muscle aches. Thepatient has had a headache. Treatment DIRECTOR OF CAREER RESOURCES: None. Arrived by private vehicle. Historian: patient. --1055 Seth Hagen, (white post nasal drip). Treatment DIRECTOR OF CAREER RESOURCES: None. PAST HX: Negative. No infectious disease exposure. Back surgery. (lema armand). SOCIAL HX: Cigarette smoker: less than 1 pack per day. No alcohol use. No report of abuse. (recovering addict. pt lives at the [facility]; has a 7 month old). --1104 Lelia Venegas R.NJohanna (c/o dizziness with changes in position. poor fluid intake x 24 hours). --1105 Lelia Venegas R.N.. PAST HX. NURSING PROGRESS NOTES Throat swab obtained for rapid strep and culture; sent to lab. --6626 Seth Hagen, (MD Begum aware of vs). --1100 Lelia Venegas R.N. Time-out completed immediately before the procedure per protocol: verified identity of patient (nameand birthdate) and procedure; verification done by care team (nurse). . --1115 Lelia Venegas R.N. IBUPROFEN 800 mg PO. . --1115 Lelia Venegas R.N.. DISPOSITION / DISCHARGE Temp: 100.8 oral. Condition at departure: improved. No learning barriers present. Discharge instructions reviewed with the patient. Reviewed medication; prescription (s) given to the patient (Pcn V 500mg). Patient verbalized understanding. Written instructions provided in Tajik. The patient was disch arged home. The patient left the Emergency Department ambulatory and via private vehicle. Patient driving. --1158 Lelia Venegas R.N. Patient reports pain level on departure as 01/14. --1158 Lelia Venegas R.N.. Locked/Released at 02/06/2008 11:58 by Lelia Venegas R.N. documented in this encounter Plan of Treatment Not on filedocumented as of this encounter Visit Diagnoses Not on filedocumented in this encounter Care Teams Armed Security Officer Relationship Specialty Start Date End Date Poly Godoy MD PCP - General 11/24/08 11/18/[address] [place] [phone] documented as of this encounter
--- NOTE | 2022-04-08 07:45 | DI.MAMMO_ITS ---
Exam(s) MAMMO SCREENING EXAM: MAMMO SCREENING CLINICAL HISTORY: screening TECHNIQUE: Mammograms were interpreted according to the usual protocol including computer analysis w [employer] CAD system, tomosynthesis and C-view imaging. COMPARISON: FINDINGS: The breasts are heterogeneously dense. No dominant mass or clumped microcalcification is identified in either breast. Current examination is compared with prior examination of September 2013 and there is increased prominence of a focal area of asymmetric density projected in the central lateral portio n of right breast on CC view only compared to the prior examination. Additional mammographic views o f this area are requested to include CC spot compression view of the right breast. No other significant change seen. IMPRESSION: Additional mammographic views of the right breast requested as described above. Right breast ultraso und may be indicated as well depending on the results of the additional mammographic views. BI-RADS Category 0 - Assessment Incomplete: Need additional imaging evaluation Breast Density - Category C - Heterogeneously dense
== END ==
PROVIDERS: PCP Nurse Practitioner Family; Visit Provider Nurse Practitioner Family
DX: Z12.31 Encounter for screening mammogram for malignant neoplasm of breast (principal); R92.8 Other abnormal and inconclusive findings on diagnostic imaging of breast
CPT/HCPCS: 77063; 77067

== ENCOUNTER → 2022-04-13 07:37 | Outpatient (CLI) | payer BC, SELFPAY ==
--- NOTE | 2022-04-13 | DI.US_ITS ---
Exam(s) MG MAMMO SCREEN CALL BACK UNI US BREAST RT LIMITED EXAM: MG MAMMO SCREEN CALL BACK UNI and U/S breast RT limited CLINICAL HISTORY: F/U ABNL MAMMO, ASYMMETRIC DENSITY RT BREAST. TECHNIQUE: Craniocaudal and mediolateral oblique Full Field Digital Mammography views of the right b reast with Computer Aided Diagnosis followed by Tomosynthesis and right breast ultrasound. COMPARISON: Comparison with prior examinations. FINDINGS: Mammography/Tomosynthesis: Masses/Architectural Distortion: None seen. Microcalcifictions: No suspicious pleomorphic-type are seen. Skin Thickening/Nipple Retraction: None. Limited right breast US: Echotexture: Normal appearance of the glandular tissue. Shadowing: No suspicious foci. Cyst: There are 2 simple cysts seen in the right breast. There is a 4 x 2 x 3 mm cyst at the 6 o'vic ck position 2 cm from the nipple. There is a 4 x 1 x 4 mm cyst at the 7 o'clock position 2 cm from t he nipple. Solid lesions: None seen. Ductal dilation: None. IMPRESSION: 1. No evidence of malignancy is noted. 2. A six-month follow-up right mammogram is recommended for re-evaluation. 3. The findings were discussed with the patient on the date of the examination. BI-RADS Category 3 - 6 month - Probably Benign Finding: Recommend follow-up imaging in 6 months Breast Density - Category C - Heterogeneously dense Breast density Category C or D implies that the patient has dense breast tissue. Dense breast tissue can make it harder to find cancer on a mammogram. Dense breast tissue is also associated with an incr eased risk of breast cancer. This information about the result of the mammogram report was provided to the patient to raise their awareness. Use this report when you speak with the patient about their risks for breast cancer, which includes their family history. At that time, you may recommend additional screening tests (Ultrasoun d or MRI) as these tests may add significant information. A negative radiographic report should not delay biopsy if a dominant or clinically suspicious mass is present. Up to ten percent of cancers are not identified on mammography. A negative report may reinforce clinical impression. Adenosis and dense breasts may obscure an underlying neoplasm. False positive reports average 6 to 10%. Patient will receive a letter notifying them of these results.
== END ==
PROVIDERS: PCP Nurse Practitioner Family; Visit Provider Nurse Practitioner Family
DX: Z12.31 Encounter for screening mammogram for malignant neoplasm of breast (principal); R92.8 Other abnormal and inconclusive findings on diagnostic imaging of breast
CPT/HCPCS: 76642; 77063; 77067

== ENCOUNTER 2022-04-13 12:20 | Outpatient (CLI) | payer BC, SELFPAY ==
--- NOTE | 2022-04-13 | DI.RAD_ITS ---
Exam(s) XR HIP RT COMPLETE AP PELVIS EXAM: XR HIP RT COMPLETE AP PELVIS CLINICAL HISTORY: CHRONIC RT HIP PAIN, M25.551, RT SACRAL PAIN, ? DEGENERATIVE PROCESS. TECHNIQUE: 2D digital imaging was performed of the right hip. Two images were obtained. AP pelvis a nd lateral right hip views were obtained. COMPARISON: No exams were available for comparison FINDINGS: BONES: No acute fracture is present. No bony destructive lesion is seen. JOINTS: No dislocation present. SOFT TISSUE: Normal. IMPRESSION: Unremarkable radiographs of the right hip. Unremarkable radiographs of the pelvis. DATA REPOSITORY: RADIATION DOSE DELIVERED:
== END 2022-04-13 12:40 ==
LOC: DI 12:22
PROVIDERS: PCP Nurse Practitioner Family; Visit Provider Nurse Practitioner Family
DX: M25.551 Pain in right hip (principal)
CPT/HCPCS: 73502

== ENCOUNTER 2022-05-09 10:01 | Emergency (ER) | payer BC, SELFPAY ==
[2022-05-09 10:09] VITALS: BP 122/77; PULSE 75; RESP 18; TEMP 36.2; O2SAT 100
--- NOTE | 2022-05-09 10:15 | RT.EKG_ITS ---
APPROVED REPORT Exam: Resting ECG Reason for Exam: dizzy Patient Location: E HR:62 bpm ECG Measurements Heart Rate 62 AXIS DE 127 P 34 QRSd 86 QRS 74 QT 427 T 47 QTc 436 Conclusion Sinus rhythm...normal P axis, V-rate 60- 99 ST elev, probable normal early repol pattern...ST elevation, age<55 no STEMI, no WPW, no brugada non-diagnostic EKG I have reviewed and interpreted ECG and agree with software generated interpretation.
[2022-05-09 10:24] VITALS: RESP 18
--- NOTE | 2022-05-09 10:31 | W.ED.GENAD ---
Discharge Plan Disposition Patient Disposition: HOME Condition: Stable Discharge Details Clinical Impression: COVID, Diarrhea Primary Care Provider: NICOLÁS NAVARRO ED Provider: Stephanie Castro Home Meds and New Rx's Prescriptions: No Action No Known Home Meds Discharge Instructions Additional Instructions: As discussed, several your symptoms are likely associated with you continuing to have an active COVID infection. However, I do remain concerned that you potentially have a pulmonary embolism. We discussed anticoagulation and you have decided to hold off at this time and we will discuss this tomorrow after your nuclear medicine study. You have an appointment tomorrow with arrival time of 12 PM for your nuclear medicine scan. Please check in at the front desk attendant and you will be directed to imaging study. After the study is incomplete, please return to the emergency department where the results will be discussed and any further treatment will be discussed at that time. If in the interim you develop chest pain, increase shortness of breath, difficulty breathing or other new/worsening symptoms please seek care urgently once again. Please continue to monitor with your home oxygenation test and return if you develop oxygen less than 92%. Please continue to quarantine Referrals: NICOLÁS NAVARRO, [employer] OPERATOR [Primary Care Provider] - Medical Decision Making Patient is a 41-year-old female with past medical history of DVT during , presenting today with chief complaint of shortness of breath, diarrhea, dizziness in the setting of being COVID-positive. Patient reports that she first began having COVID symptoms which primarily was fatigue and upper respiratory symptoms over a days ago. Denies any chest pain. Patient is an active smoker, smokes about 1 pack a day. Is not actively anticoagulated as her DVT was associated with known exacerbating factors. No lower extremity swelling or pain. On exam, patient appears nontoxic. She does appear fatigued. Satting at 100% room air no respiratory distress. Lungs are clear. She does appear slightly dry with dry mucous membranes. Her abdomen is benign with no tenderness elicited with palpation. No lower extremity edema, no calf tenderness. Patient known COVID-positive. Her symptoms may be associated with slow progression of the disease. However, particularly with the patient's history of previous provoked DVT and the increased likelihood with known COVID-19, I do feel that evaluation for potential PE would be appropriate. While I find ACS less likely, particularly if the patient is a smoker, this is on my differential and we will screen the EKG as well as troponin. ECG reviewed by Dr. Monzon, no acute ischemic findings noted. FINDINGS: Leads overlie the chest.? LUNGS: There is a question of increased densities seen in the right lower lobe.? No pleural abnormality seen. HEART: Normal. AORTA: Normal. BONES: Rods are again noted in the spine Soft tissues: Unremarkable. IMPRESSION: Junction of? right lower lobe infiltrates versus overlying structures. Patient has had no increase in cough, no fevers/chill, no sputum production. I have low suspicion at this time for pneumonia, more likely overlying structures. Labs concerneing for slightly elevated d-dimer. Discussed with patient. She has allergy to contrast dye. We discussed premedication for dye allergy, she declines. Discussed VQ scan. We discussed risks associated with possible PE. She has remote hx of provoked DVT, is not currently anticoagulated. She would much prefer the VQ scan which we can arrange for tomorrow with return to ED after. We also discussed risk/benefits of anticoagulating currently until results are back with definitive answers regarding PE. However, after shared decision making discussion, she would prefer to hold off. She is able tot come back emergently if she develops any new/worsening symptoms. She will return tomorrow for VQ scan at 1230 with paln to come to the ED after the imaging. All of her questions and concerns were addressed, she is in agreement with alicia cruz. She will continue to quarantine. HPI General Date/Time Provider Initiated Documentation: 05/09/22 10:31. Limitations to Documentation: no limitations. Information obtained by: patient and RN notes reviewed. History of Present Illness 41 year old F presents to the emergency department with the chief complaint of COVID+, diarrhea, difficulty taking a deep breath, described as moderate, Quality is described as other (denies any pain currently), and is localized to the chest and abdomen. Patient reports no radiation. Patient started experiencing this day(s) (8) and it has been constant. No relieving factors improve symptom(s), No exacerbating factors reported . Patient notes cough (minimal, feels like it is smokers cough), malaise and shortness of breath (reports difficulty taking a deep breath, no real SOB, none currently); denies chest pain, diaphoresis, fever/chills, headaches, nausea/vomiting, rash and syncope. Patient did receive the following treatments prior to arrival, none Related Data Home Medications Medication Instructions Recorded Confirmed Unknown [No Known Home Meds] 02/05/21 05/09/22 Allergies Allergy/AdvReac Type Severity Reaction Status Date / Time amoxicillin trihydrate Allergy Severe Hives Verified 05/09/22 10:12 [From Augmentin] sulfamethoxazole Allergy Severe Hives Verified 05/09/22 10:12 [From Bactrim] trimethoprim [From Bactrim] Allergy Severe Hives Verified 05/09/22 10:12 tree nut Allergy Anaphylaxsi Verified 05/09/22 10:12 s amoxicillin [From Augmentin] AdvReac Severe Hives Verified 05/09/22 10:12 clavulanic acid AdvReac Severe Hives Verified 05/09/22 10:12 [From Augmentin] azithromycin AdvReac Intermediate Stomach Verified 05/09/22 10:12 cramps Oral contrast Allergy Swelling/Ed Uncoded 05/09/22 10:12 malou General Stated Complaint: GenMedical FRANCIA: 3 Review of Systems Constitutional Constitutional: Reports as per HPI, Denies chills, Denies fever(s), Denies headache(s) and Denies poor appetite ENT Ears, Nose, Mouth, and Throat: Denies dizziness and Denies headache(s) Cardiovascular Cardiovascular: Reports as per HPI and Denies dyspnea on exertion Respiratory Respiratory: Reports as per HPI, Denies chest congestion, Denies cough, Denies dyspnea on exertion and Denies wheezing Gastrointestinal Gastrointestinal: Reports as per HPI, Denies abdominal pain, Denies diarrhea, Denies nausea and Denies vomiting Musculoskeletal Musculoskeletal: Reports as per HPI and Denies back pain Integumentary/Breasts Skin/Breast: Reports as per HPI and Denies rash Neurologic Neurologic: Reports as per HPI, Denies dizziness and Denies headache(s) Allergic/Immunologic Allergic/Immunologic: Denies wheezing PFSH All Active Problems (Updated 05/09/22 @ 13:11 by APPLE Gray) COVID (Acute) Diarrhea (Acute) Hot flashes (Acute) Well woman exam (Acute) History of DVT (deep vein thrombosis) (Acute) Sterilization consult (Acute) Adhesive capsulitis of right shoulder (Chronic) Injected 10/31/2018 Medical History (Updated 05/09/22 @ 13:11 by APPLE Gray) Anxiety disorder Cholelithiasis Opioid dependence in remission Scoliosis Wrist fracture, left Surgical History section x2 History of back surgery Social History Smoking/Tobacco Use Status: Current every day Tobacco Type: cigarettes Tobacco: How many years used: 20 Quit status: quit date established Smoking risk assessment performed?: Yes Alcohol Intake: current Alcohol Intake frequency: a few times a week Drug use: Current Sobriety What is your relationship status?: Panel score (0-1 are the most socially isolated patients): 1 Seatbelt use: always Do you feel safe at home: Yes Do you feel safe in your relationship?: Yes Exam Const General: cooperative, healthy appearing, comfortable, no acute distress and well developed Nutritional Appearance: average body habitus and well nourished Orientation: alert, awake and oriented x3 HENMT Head: normal to inspection Ears: hearing grossly normal bilaterally Mouth: moist mucous membranes Chest Chest: normal inspection of the chest, normal palpation of entire chest wall and no crepitus Resp Effort & Inspection: normal respiratory effort, able to speak in complete sentences and no respiratory distress Auscultation: clear to auscultation bilaterally, no rales, no rhonchi and no wheezes Cardio Rate: regular rate Rhythm: regular rhythm Heart Sounds: S1 normal and S2 normal GI Inspection: normal to inspection, no edema and non-distended Palpation: soft, no hepatosplenomegaly, not firm, no guarding, not rigid and nontender Auscultation: normal bowel sounds Back/Spine/Pelvis Back: no CVA tenderness Thoracic/Lumbar Spine: thoracic and lumbar spine normal to inspection Skin General skin exam: no rashes or lesions noted Trauma: no lacerations or abrasions Neuro General: patient alert, patient awake and patient oriented x3 Cognition: normal cognition Speech: speech normal Gait: normal gait Extrem General: normal to inspection, capillary refill normal, no pedal edema, no calf tenderness and normal gait Psych Appearance: grossly normal and well kempt Mental Status: mental status grossly normal Speech and Movement: speech and movement normal Course Vital Signs Vital signs: Vital Signs Temperature 36.2 C L 05/09/22 10:09 Pulse 75 05/09/22 10:09 Respiratory Rate 18 05/09/22 10:09 Blood Pressure 122/77 05/09/22 10:09 Pulse Oximetry 100 05/09/22 10:09 Temperature 36.2 C L 05/09/22 10:09 Temperature Source Temporal Artery Scan 05/09/22 10:09 Pulse 75 05/09/22 10:09 Respiratory Rate 18 05/09/22 10:24 Respiratory Effort Non-Labored 05/09/22 10:24 Respiratory Depth Normal 05/09/22 10:24 Respiratory Pattern Normal 05/09/22 10:24 Blood Pressure 122/77 05/09/22 10:09 Blood Pressure Position Sitting 05/09/22 10:09 Pulse Oximetry 100 05/09/22 10:09 Oxygen Delivery Method Room Air 05/09/22 10:09 Oxygen Flow Rate 0 05/09/22 10:09 PAWSS Have you Been Recently Intoxicated or Drunk Within the Last 30 days?: No Have you Ever Experienced Previous Episodes of Alcohol Withdrawal?: No Have you ever Experienced Withdrawal Seizures?: No Have you ever Experienced Delirium Tremens(DT)s?: No Have you ever undergone Alcohol Rehabilitation Treatment (i.e, inpt ot outpatient treatment programs)?: No Have you ever Experienced Blackouts?: No Have you ever Combined Alcohol with other Downers within the last 90 days?: No Have you ever Combined Alcohol with any other Substance of Abuse during the last 90 days?: No Positive Blood Alcohol level on Presentation? [PCS.BAL]: No Evidence of Increased Autonomic Activity (i.e. HR>120, tremor, sweating, agitation, nausea)?: No Result: 0
[2022-05-09 11:23] VITALS: BP 116/97; PULSE 65; RESP 20; TEMP 36.8; O2SAT 100
[2022-05-09] MEDS: Lactated Ringers 1,000 ML 1000 ML IV (11:28)
[2022-05-09 11:48] LABS: Abs Immature Grans 0.01 10^3/uL (0.0-0.06); Absolute Basophil Count 0.02 10^3/uL (0.0-0.2); Absolute Eosinophil Count 0.08 10^3/uL (0.0-0.7); Absolute Lymphocyte Count 2.26 10^3/uL (1.2-3.4); Absolute Monocyte Count 0.46 10^3/uL (0.1-0.8); Absolute Neutrophil Count 3.66 10^3/uL (1.2-6.7); Basophils % 0.3; Eosinophils % 1.2; HCT 44.7 % (36.0-46.0); HGB 15.1 g/dL (11.2-15.7); Immature Grans % 0.2; Lymphocytes % 34.8; MCH 31.6 pg (27.0-33.0); MCHC 33.8 % (32.0-36.0); MCV 94 fL (80-95); MPV 9.1 fL (8.0-11.0); Monocytes % 7.1; Neutrophils % 56.4; Platelet Count 268 10^3/uL (130-400); RBC 4.78 10^6/uL (3.93-5.22); RDW 11.9 % (11.7-14.6); RDW-SD 41.5 fL; WBC 6.49 10^3/uL (4.4-10.8)
[2022-05-09 12:06] LABS: ALT 31 U/L (14-59); AST 23 U/L (15-37); Albumin 4.2 g/dL (3.4-5.0); Alkaline Phosphatase 64 U/L (46-116); Anion Gap 6.3 mmol/L (3-11); BUN 8 mg/dL (7-18); Bilirubin, Total 0.8 mg/dL (0.2-1.0); CO2 28.7 mmol/L (21.0-32.0); CREATININE 0.8 mg/dL (0.55-1.02); Calcium 9.1 mg/dL (8.5-10.1); Chloride 102 mmol/L (98-107); Estimated GFR 95.46 (mL/min/1.73m2); Glucose 99 mg/dL (74-106); Magnesium 1.8 mg/dL (1.8-2.4); Potassium 3.9 mmol/L (3.5-5.1); Sodium 137 mmol/L (136-145); Total Protein 7.9 g/dL (6.4-8.2); Troponin I < 50 ng/L (<or=60)
--- NOTE | 2022-05-09 12:15 | DI.RAD_ITS ---
Exam(s) XR PORTABLE CHEST AP EXAM: XR PORTABLE CHEST AP CLINICAL HISTORY: SOB, COVID + TECHNIQUE: 2D digital imaging was performed. COMPARISON: CR XR CHEST 2V PA LATERAL from 01/28/2019 FINDINGS: Leads overlie the chest. LUNGS: There is a question of increased densities seen in the right lower lobe. No pleural abnormali ty seen. HEART: Normal. AORTA: Normal. BONES: Rods are again noted in the spine Soft tissues: Unremarkable. IMPRESSION: Junction of right lower lobe infiltrates versus overlying structures. DATA REPOSITORY: RADIATION DOSE DELIVERED:
[2022-05-09 12:35] LABS: D-Dimer 601 ng/mlFEU (<500)
== END 2022-05-09 14:16 | disposition home or self-care (01) ==
PROVIDERS: Emergency Provider Physician Assistant; PCP Nurse Practitioner Family
DX: U07.1 COVID-19 (principal); F17.210 Nicotine dependence, cigarettes, uncomplicated; Z86.718 Personal history of other venous thrombosis and embolism; Z91.041 Radiographic dye allergy status; R42 Dizziness and giddiness
CPT/HCPCS: 80053; 93005; 96360; 99284; 71045; 83735; 84484; 85025; 85379; 93010

== ENCOUNTER 2022-07-04 21:26 | Emergency (ER) | payer OTHER, SELFPAY ==
[2022-07-04 21:47] VITALS: BP 123/77; PULSE 92; RESP 18; TEMP 37; O2SAT 99
--- NOTE | 2022-07-04 22:42 | ED.GENADUL_ITS ---
Discharge Plan Disposition Patient Disposition: Home Condition: Stable Discharge Details Clinical Impression: Knee pain, left Primary Care Provider: NICOLÁS NAVARRO ED Provider: Rocael Means Home Meds and New Rx's Prescriptions: No Action No Known Home Meds Discharge Instructions Instructions: Knee Pain (ED) Additional Instructions: Rest, elevate, cool compresses every 2 hours for 20 minutes. [id number] Tylenol and/or Motrin as directed for discomfort. Wear leg immobilizer and use crutches as needed, advance activity as tolerated. Please watch for new or worsening symptoms and return to the ER for any concerns. 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 No obvious trauma. She reports after work she was stepping up into her truck and felt pain in the left knee lateral aspect. Clinically she appears well, nontoxic. Knee is stable. Neuro, vascular, tendon intact. Patient states that it feels as though this is tendon pain. Declines x-ray, would like MRI. Extremely low suspicion for DVT. Declines Toradol, would like to take [id number] medication Into a long-leg immobilizer and crutches were provided. Discussed the importance of outpatient follow-up with her PCP potential referral to orthopedics for reevaluation, potential advanced imaging if symptoms were to persist. Standard discharge and return precautions were provided. Patient understands, is agreeable to this plan, and has no additional questions or concerns upon discharge. This documentation was generated using [employer] system, please disregard any oddities of phrase or misspellings. Medical Records Medical records reviewed: Yes I reviewed the patient's medical records. Sign Out No HPI General Mode of arrival: wheelchair . Date/Time Provider Initiated Documentation: 07/04/22 22:04 . Limitations to Documentation: no limitations . Information obtained by: patient and family . History of Present Illness 41 year old F presents to the emergency department with the chief complaint of Lat L knee pain, described as severe, with intensity rated at 8. Quality is described as stabbing and aching, and is localized to the left and lower extremity. Patient reports no radiation. Patient started experiencing this hour(s) (7) and it has been constant. Immobilization improves symptom(s), Movement worsens symptoms . Patient notes no other symptoms.. Patient did receive the following treatments prior to arrival, NSAID Related Data Home Medications Medication Instructions Recorded Confirmed Unknown [No Known Home Meds] 02/05/21 05/09/22 Allergies Allergy/AdvReac Type Severity Reaction Status Date / Time amoxicillin trihydrate Allergy Severe Hives Verified 05/09/22 10:12 [From Augmentin] sulfamethoxazole Allergy Severe Hives Verified 05/09/22 10:12 [From Bactrim] trimethoprim [From Bactrim] Allergy Severe Hives Verified 05/09/22 10:12 tree nut Allergy Anaphylaxsi Verified 05/09/22 10:12 s amoxicillin [From Augmentin] AdvReac Severe Hives Verified 05/09/22 10:12 clavulanic acid AdvReac Severe Hives Verified 05/09/22 10:12 [From Augmentin] azithromycin AdvReac Intermediate Stomach Verified 05/09/22 10:12 cramps Oral contrast Allergy Swelling/Ed Uncoded 05/09/22 10:12 malou General Stated Complaint: GenMedical FRANCIA: 3 Review of Systems Constitutional Constitutional: Denies fever(s) and Denies weakness Cardiovascular Cardiovascular: Denies chest pain and Denies dyspnea Respiratory Respiratory: Denies dyspnea Musculoskeletal Musculoskeletal: Reports arthralgias, Denies numbness, Reports stiffness and Denies tingling Integumentary/Breasts Skin/Breast: Denies rash Neurologic Neurologic: Denies numbness, Denies tingling and Denies weakness PFSH All Active Problems COVID (Acute) Knee pain, left (Acute) Hot flashes (Acute) Well woman exam (Acute) History of DVT (deep vein thrombosis) (Acute) Sterilization consult (Acute) Adhesive capsulitis of right shoulder (Chronic) Injected 10/31/2018 Medical History Anxiety disorder Cholelithiasis Opioid dependence in remission Scoliosis Wrist fracture, left Surgical History section x2 History of back surgery Social History Smoking/Tobacco Use Status: Current every day Tobacco Type: cigarettes Tobacco: How many years used: 20 Quit status: quit date established Smoking risk assessment performed?: Yes Alcohol Intake: current Alcohol Intake frequency: a few times a week Drug use: Current Sobriety What is your relationship status?: Panel score (0-1 are the most socially isolated patients): 1 Seatbelt use: always Do you feel safe at home: Yes Do you feel safe in your relationship?: Yes Exam Const General: cooperative, healthy appearing, comfortable and no acute distress Orientation: alert and awake HENMT Head: normal to inspection, normocephalic and atraumatic Eyes Conjunctivae: conjunctivae normal Neck Neck: normal visual inspection, full ROM, no meningeal signs, trachea midline and supple Resp Effort & Inspection: normal respiratory effort and able to speak in complete sentences Auscultation: clear to auscultation bilaterally Cardio Rate: regular rate Rhythm: regular rhythm Skin General skin exam: no rashes or lesions noted Neuro General: patient alert, patient awake, moves all extremities and no focal motor deficits Cognition: normal cognition Speech: speech normal Gait: antalgic Motor: muscle tone normal throughout Sensory Exam: no sensory deficits noted Extrem General: normal to inspection, full ROM and capillary refill normal Other: Left knee with a normal visual inspection. Patient does have diffuse lateral discomfort and the pain is made worse with lateral stress. Knee is stable, negative anterior draw sign, no laxity. There is no warmth, erythema, swelling, palpable cord. Negative Homans' sign. Neuro, vascular, tendon intact. Normal pulse and capillary refill. Psych Appearance: grossly normal Mental Status: mental status grossly normal Course Vital Signs Vital signs: Vital Signs Temperature 37 C 07/04/22 21:47 Pulse 92 H 07/04/22 21:47 Respiratory Rate 18 07/04/22 21:47 Blood Pressure 123/77 07/04/22 21:47 Pulse Oximetry 99 07/04/22 21:47 Temperature 37 C 07/04/22 21:47 Temperature Source Tympanic 07/04/22 21:47 Pulse 92 H 07/04/22 21:47 Respiratory Rate 18 07/04/22 21:47 Respiratory Effort 07/04/22 21:51 Respiratory Depth Normal 07/04/22 21:51 Respiratory Pattern Normal 07/04/22 21:51 Blood Pressure 123/77 07/04/22 21:47 Blood Pressure Position Supine 07/04/22 21:47 Pulse Oximetry 99 07/04/22 21:47 Oxygen Delivery Method Room Air 07/04/22 21:47 Oxygen Flow Rate 0 07/04/22 21:47 Pain Level 7 07/04/22 21:47 PAWSS Have you Been Recently Intoxicated or Drunk Within the Last 30 days?: No Have you Ever Experienced Previous Episodes of Alcohol Withdrawal?: No Have you ever Experienced Withdrawal Seizures?: No Have you ever Experienced Delirium Tremens(DT)s?: No Have you ever undergone Alcohol Rehabilitation Treatment (i.e, inpt ot outpatient treatment programs)?: No Have you ever Experienced Blackouts?: No Have you ever Combined Alcohol with other Downers within the last 90 days?: No Have you ever Combined Alcohol with any other Substance of Abuse during the last 90 days?: No Positive Blood Alcohol level on Presentation? [PCS.BAL]: No Evidence of Increased Autonomic Activity (i.e. HR>120, tremor, sweating, agitation, nausea)?: No Result: 0
== END 2022-07-04 22:50 | disposition home or self-care (01) ==
PROVIDERS: Emergency Provider Physician Assistant; PCP Nurse Practitioner Family
DX: M25.562 Pain in left knee (principal); X50.3XXA Overexertion from repetitive movements, initial encounter; Y99.0 Civilian activity done for income or pay
CPT/HCPCS: 29505; 99283

== ENCOUNTER 2022-10-21 00:01 | Outpatient (CLI) | payer BC, SELFPAY ==
--- NOTE | 2022-10-21 07:45 | DI.MAMMO_ITS ---
Exam(s) MAMMO DIAGNOSTIC UNI EXAM: MAMMO DIAGNOSTIC UNI CLINICAL HISTORY: 6 month f/u,r92.8,rt breast cysts,abnl of right breast on 04/13/22. TECHNIQUE: Craniocaudal and mediolateral oblique Full Field Digital Mammography views of the right b reast with Computer Aided Diagnosis followed by Tomosynthesis. COMPARISON: Comparison is made with prior examinations. FINDINGS: Mammography/Tomosynthesis: Masses/Architectural Distortion: None seen. Microcalcifictions: No suspicious pleomorphic-type are seen. Skin Thickening/Nipple Retraction: None. IMPRESSION: 1. No evidence of malignancy is noted. 2. Unless there is more urgent need, follow-up screening mammography is recommended, as per [place] [employer] guidelines. 3. The findings were discussed with the patient on the date of the examination. BI-RADS Category 1 - Negative Breast Density - Category C - Heterogeneously dense Breast density Category C or D implies that the patient has dense breast tissue. Dense breast tissue can make it harder to find cancer on a mammogram. Dense breast tissue is also associated with an incr eased risk of breast cancer. This information about the result of the mammogram report was provided to the patient to raise their awareness. Use this report when you speak with the patient about their risks for breast cancer, which includes their family history. At that time, you may recommend additional screening tests (Ultrasoun d or MRI) as these tests may add significant information. A negative radiographic report should not delay biopsy if a dominant or clinically suspicious mass is present. Up to ten percent of cancers are not identified on mammography. A negative report may reinforce clinical impression. Adenosis and dense breasts may obscure an underlying neoplasm. False positive reports average 6 to 10%. Patient will receive a letter notifying them of these results.
== END 2022-10-21 00:21 ==
PROVIDERS: PCP Nurse Practitioner Family; Visit Provider Nurse Practitioner Family
DX: R92.8 Other abnormal and inconclusive findings on diagnostic imaging of breast (principal); N64.59 Other signs and symptoms in breast
CPT/HCPCS: 77061; 77065; G0279

== ENCOUNTER 2023-05-01 11:54 | Outpatient (REF) | payer BC, SELFPAY ==
--- NOTE | 2023-05-01 10:30 | PAPFT_PTH ---
PATIENT: Yana Duron LOC: [facility] U#:[id number] AGE/SX: 42/F ROOM: RE05/01/[address]: Nayely Schumacher NP : 1980 BED: DIS: 05/01/2023 SPEC #: [id number] RECD: 05/01/23 17:54 STATUS: VALERIO REQ #: [id number] CESAR: 05/01/23 10:[address]: Endy CARABALLO,Nayely DEPT: [facility] Cytology RECD BY: Carey Duong ENTERED: 05/01/23 17:54 SP TYPE: PAPFT OTHR DR: NICOLÁS NAVARRO NP Tissues: 1 - CX/ENDOCX FOR PAP SMEARS Procedures: PAP THIN PREP/UVM Screening HPV DNA PROBE Comments: [id number] (CHLAMYDIA/GC)
[2023-05-02 15:44] LABS: Chlamydia Result Negative (Negative); GC Result Negative (Negative)
== END 2023-05-01 11:55 | disposition home or self-care (01) ==
LOC: LBN 11:54
PROVIDERS: PCP Nurse Practitioner Family; Visit Provider Nurse Practitioner Women's Health
DX: Z11.3 Encounter for screening for infections with a predominantly sexual mode of transmission (principal); Z12.4 Encounter for screening for malignant neoplasm of cervix; Z11.51 Encounter for screening for human papillomavirus (HPV)
CPT/HCPCS: 87491; 87591; 88142; 87624

== ENCOUNTER → 2023-05-19 02:44 | Outpatient (CLI) | payer BC, SELFPAY ==
--- NOTE | 2023-05-19 08:20 | DI.MAMMO_ITS ---
Exam(s) MAMMO SCREENING EXAM: MAMMO SCREENING CLINICAL HISTORY: screening TECHNIQUE: Mammograms were interpreted according to the usual protocol including computer analysis w Capical CAD system, tomosynthesis and C-view imaging. COMPARISON: 2013 through 21 October 2022 FINDINGS: The breasts are composed of heterogeneously dense fibroglandular densities, Breast Density category C . No suspicious masses or suspicious microcalcifications are seen. No skin thickening or abnormal axillary lymph nodes are seen. There has been no significant change from prior exams. IMPRESSION: BI-RADS Category 1, Negative mammogram. Yearly screening mammography is recommended. Breast Density Category C, heterogeneously Dense. The mammogram demonstrates the patient's breast tissue is dense. Dense breast tissue is very common a nd is not abnormal but dense breast tissue can make it harder to find cancer on a mammogram. Also, de nse breast tissue may increase breast cancer risk. This information about the result of the mammogram report was provided to the patient to raise their awareness. Use this report when you speak with the patient about their risks for breast cancer, which includes their family history. At that time, you may recommend additional screening tests (Ultrasound or MRI) as they might be useful based on their r isk. A negative radiographic report should not delay biopsy if a dominant or clinically suspicious mass is present. Up to ten percent of cancers are not identified on mammography. A negative report may reinforce clinical impression. Adenosis and dense breasts may obscure an underlying neoplasm. False positive reports average 6 to 10%.
== END ==
PROVIDERS: PCP Nurse Practitioner Family; Visit Provider Nurse Practitioner Women's Health
DX: Z12.31 Encounter for screening mammogram for malignant neoplasm of breast (principal); R92.333 Mammographic heterogeneous density, bilateral breasts
CPT/HCPCS: 77063; 77067

== ENCOUNTER 2023-05-30 02:52 | Outpatient (CLI) | payer BC, SELFPAY ==
[2023-05-30 16:06] LABS: HCT 44.4 % (36.0-46.0); HGB 14.9 g/dL (11.2-15.7); MCH 31.6 pg (27.0-33.0); MCHC 33.6 % (32.0-36.0); MCV 94 fL (80-95); MPV 8.6 fL (8.0-11.0); Platelet Count 291 10^3/uL (130-400); RBC 4.71 10^6/uL (3.93-5.22); RDW 12.1 % (11.7-14.6); RDW-SD 42.7 fL; WBC 7.81 10^3/uL (4.4-10.8)
[2023-05-30 16:32] LABS: Anion Gap 9.3 mmol/L (3-11); BUN 9 mg/dL (7-18); CO2 24.7 mmol/L (21.0-32.0); CREATININE 0.8 mg/dL (0.55-1.02); Calcium 9.4 mg/dL (8.5-10.1); Chloride 104 mmol/L (98-107); Estimated GFR 94.87 (mL/min/1.73m2); Glucose 79 mg/dL (74-106); Sodium 138 mmol/L (136-145)
[2023-05-31 06:53] LABS: HCG Qual (Serum) Negative
== END 2023-05-30 02:53 | disposition home or self-care (01) ==
PROVIDERS: PCP Nurse Practitioner Family; Visit Provider Obstetrics & Gynecology Gynecology
DX: Z01.818 Encounter for other preprocedural examination (principal)
CPT/HCPCS: 36415; 80048; 85027; 86850; 86900; 86901; 84703

== ENCOUNTER 2023-05-31 05:59 | Day surgery (SDC) | payer BC, SELFPAY ==
[2023-05-31] VITALS (8 sets, daily range): BP systolic 102–126; BP diastolic 52–81; PULSE 59–75; RESP 16–20; TEMP 36.1–36.7; O2SAT 98–100; BMI 26.1
[2023-05-31] MEDS: Lactated Ringers 1,000 ML 125 ML IV (06:44)
--- NOTE | 2023-05-31 07:41 | ANES.PREOP_ITS ---
General Info Date of Service Date Performed: 05/31/23 Height: 5 ft 7 in Weight: 75.7 kg Body Mass Index (BMI): 26.1 Surgical Procedure: Operation Date: 05/31/23 07:40 Proposed Procedure Side Surgeon p Tubal Ligation Laparoscopic Omayra Carver MD Actual Procedure Side Surgeon p Tubal Ligation Laparoscopic Omayra Carver MD Pre-Op Diagnosis Post-Op Diagnosis UNDESIRED FERTILITY Meds Allergies and Home Medications Allergies Allergy/AdvReac Type Severity Reaction Status Date / Time amoxicillin trihydrate Allergy Severe Hives Verified 05/31/23 06:24 [From Augmentin] sulfamethoxazole Allergy Severe Hives Verified 05/31/23 06:24 [From Bactrim] trimethoprim [From Bactrim] Allergy Severe Hives Verified 05/31/23 06:24 tree nut Allergy Anaphylaxsi Verified 05/31/23 06:24 s amoxicillin [From Augmentin] AdvReac Severe Hives Verified 05/31/23 06:24 clavulanic acid AdvReac Severe Hives Verified 05/31/23 06:24 [From Augmentin] azithromycin AdvReac Intermediate Stomach Verified 05/31/23 06:24 cramps Oral contrast Allergy Swelling/Ed Uncoded 05/31/23 06:24 malou Home Medication Medication Instructions Recorded medroxyprogesterone 150 mg/mL 150 mg IM [id number] #1 mL 05/01/23 intramuscular syringe Current Visit Medications: Current Medications Generic Name Dose Route Start Last Admin Trade Name Freq PRN Reason Stop Dose Admin Ringer's Solution 1,000 mls @ 125 mls/hr 05/31/23 06:00 05/31/23 06:44 IV 06/29/23 23:59 125 mls/hr INFUSION ERNESTO Administration IV Miscellaneous Supplies 1 each 05/31/23 06:00 Iv Access IV 06/29/23 23:59 DIRECTED ERNESTO Sodium Chloride 0 ml 05/31/23 06:00 Normal Saline Flush 10 Ml Syr IV 06/29/23 23:59 PRN PRN Sodium Chloride 0 ml 05/31/23 06:00 Normal Saline 10 Ml Vial IJ 06/29/23 23:59 DIRECTED PRN Sterile Water 0 ml 05/31/23 06:00 Water,Injection,Sterile 10 Ml Vial IJ 06/29/23 23:59 DIRECTED PRN PFSH Active Problems Active Problems: Problem Status Onset Code Encounter for counseling regarding contraception Z30.09 Pre-op exam Z01.818 COVID U07.1 Hot flashes R23.2 Well woman exam Z01.419 History of DVT (deep vein thrombosis) Z86.718 Sterilization consult Z30.09 Adhesive capsulitis of right shoulder M75.01 Medical History Medical History 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 denies Wrist fracture, left Scoliosis Opioid dependence in remission 16 years per pt Anxiety disorder Surgical History Surgical History History of back surgery section x2 Tobacco Smoking/Tobacco Use Status: Current every day Tobacco Type: cigarettes Alcohol Alcohol Intake: current Alcohol intake frequency: a few times a week Substance Use Substance use: Current Sobriety Prental History History 2 Para 2 Hx # Term Pregnancies Multiple births Hx # Pregnancies Ectopic pregnancies AB induced Hx Number of Living Children AB spontaneous Vital Signs and Lab Results Vital Signs Most Recent Vital Signs in EMR: Most Recent Vital Signs Temp Pulse Resp BP Pulse Ox 36.6 C 75 16 124/81 100 05/31/23 06:15 05/31/23 06:15 05/31/23 06:15 05/31/23 06:15 05/31/23 06:15 Lab Results Blood Type / Crossmatch: Patient ABO/Rh O Negative 05/30/23 Antibody Screen NEGATIVE 05/30/23 Complete Blood Count: White Blood Count 7.81 10^3/uL (4.4-10.8) 05/30/23 15:55 Red Blood Count 4.71 10^6/uL (3.93-5.22) 05/30/23 15:55 Hemoglobin 14.9 g/dL (11.2-15.7) 05/30/23 15:55 Hematocrit 44.4 % (36.0-46.0) 05/30/23 15:55 Platelet Count 291 10^3/uL (130-400) 05/30/23 15:55 Complete Metabolic Panel: Sodium 138 mmol/L (136-145) 05/30/23 15:55 Potassium 4.0 mmol/L (3.5-5.1) 05/30/23 15:55 Chloride 104 mmol/L (98-107) 05/30/23 15:55 Carbon Dioxide 24.7 mmol/L (21.0-32.0) 05/30/23 15:55 BUN 9 mg/dL (7-18) 05/30/23 15:55 Creatinine 0.8 mg/dL (0.55-1.02) 05/30/23 15:55 Est GFR (CKD-EPI 2020) 94.87 (mL/min/1.73m2) 05/30/23 15:55 Calcium 9.4 mg/dL (8.5-10.1) 05/30/23 15:55 Glucose 79 mg/dL (74-106) 05/30/23 15:55 Liver Function Panel: No Data to Display Coagulation Panel: No Data to Display Cardiac Panel: No Data to Display Arterial Blood Gas: No Data to Display Venous Blood Gas: No Data to Display Pancreas Panel: No Data to Display Thyroid Panel: No Data to Display Infectious Disease: Neisseria gonorrhoeae DNA Probe Negative (Negative) 05/01/23 1 0:30 Blood Cultures: No Data to Display Toxicology Panel: No Data to Display Panel: Urine HCG, Qualitative Negative 05/05/23 10:35 Serum HCG, Qualitative Negative 05/30/23 15:55 Anesthesia Assessment and Plan Anesthesia History Personal History: No History of Anesthesia Complications Family History: No Family History of Anesthesia Complications Exercise Tolerance Exercise Tolerance: Metabolic Equivalents>4 Pertinent Negatives Pertinent Negatives: No Symptoms of GERD Cardiac & Pulmonary Exam Cardiac Exam: Normal S1/S2 Heart Sounds Pulmonary Exam: Clear Bilateral Breath Sounds Implantable Cardiac Device Does patient have a Pacemaker or an ICD?: No Airway Exam Known Difficult Airway: No Mallampati Class: 2 Mouth Opening: Normal (> 3cm) Thyromental Distance: Greater than 3 cm Neck Range of Motion: Full ROM Neck Circumference: Normal Teeth Condition: Normal Dentition ASA Classification ASA Score: ASA 2 Emergency Case?: No NPO Status NPO Status: NPO Clears >2 hours, Solids >8 hours Status Status: Not Relevant due to Medical History Anesthesia Plan Resuscitation Status: Full Code Anesthesia Technique: General Anesthesia Airway Planned: Endotracheal Tube Monitors Used: Standard Monitors
--- NOTE | 2023-05-31 08:29 | FALL_PTH ---
PATIENT: Yana Duron LOC: [facility] U#:[id number] AGE/SX: 42/F ROOM: RE05/31/[address]: Omayra Carver : 1980 BED: DIS: 05/31/2023 SPEC #: [id number] RECD: 05/31/23 12:48 STATUS: VALERIO RESaji #: [id number] CESAR: 05/31/23 08:[address]: Omayra Carver DEPT: Surgical Specimen RECD BY: Carey Duong ENTERED: 05/31/23 12:49 SP TYPE: Fall OTHR DR: NICOLÁS NAVARRO, ILYA Tissues: 1 - FALLOPIAN TUBE (STERILIZATION) 2 - FALLOPIAN TUBE (STERILIZATION) Procedures: GROSS AND MICRO LEVEL 2 Comments: [id number]
[2023-05-31] MEDS: Bupivacaine 0.25% Pres-Free 30 ML VIAL (08:52)
--- NOTE | 2023-05-31 09:16 | ROE_ITS ---
Date of service: 05/31/23 Time of Service: 09:17 Operative Note Operative Note DATE OF PROCEDURE: 05/31/23 PRE-OP DIAGNOSIS: Undesired fertility POST-OP DIAGNOSIS: same PROCEDURE: Laparoscopic bilateral salpingectomy SURGEON: Omayra Carver ASSISTING SURGEON: Matilda Gamino ANESTHESIA TYPE: General LMA/ETT Refer to Anesthesia Record ESTIMATED BLOOD LOSS: 0 PATHOLOGY: other (Right and left fallopian tubes to pathology) COMPLICATIONS: None Patient was transported to: PACU Patient's condition: stable Indications: 42yo female who has requested permanent sterilization. She reports being done with her child bearing and has is newly sexually active. Findings: Single band of omentum 1 cm in diameter extending from the anterior abdominal wall to the omentum. It is caudal to the trochar site. Normal upper abdomen, normal adnexa and anterior cul-de-sac. Procedure Description: Patient was taken to the operating room where she was placed in the dorsal supine position and endotracheal anesthesia was administered without difficulty. SCDs were in place. A surgical timeout was performed. She was prepped and draped in the usual sterile fashion. A bivalve speculum was placed in the vagina and the anterior lip of the cervix was grasped with a single-tooth tenaculum and a [employer] uterine manipulator was inserted and left in place for the remainder of the procedure. Attention was turned to the patient's abdomen where the umbilical fold was infiltrated with 0.25% Marcaine without epinephrine and 12 mm horizontal skin incision was made in the umbilicus. Through this incision a varies needle connected to carbon dioxide gas was inserted into the abdomen and intra- abdominal placement confirmed by drop in the intra-abdominal pressure. Once a pneumoperitoneum was established a 12 mm Visiport trocar was introduced into the abdomen under direct visualization. The patient was then placed in Trendelenburg and 2 sites on the abdomen approximately 6 cm diagonal to the right of and left of the umbilical incision were transilluminated, the skin infiltrated with 0.25% Marcaine, incised with a scalpel and under direct visualization two 5 mm ports were placed in the right and left lower quadrants respectively. The abdomen was inspected with the above-noted findings. The left fallopian tube located and followed out to its fimbriated end and a [employer]iga[employer] electrocautery device was used to clamp cauterize and transect the fimbria from the left mesosalpinx to the level of the left uterine cornua. The left fallopian tube was then delivered through the 10 mm umbilical port and passed off of the operative field. A similar technique was carried out on the right fallopian tube without difficulty. The right fallopian tube was then delivered through the umbilical port. Both fallopian tube pedicles were inspected and noted to be hemostatic. The location of both ureters was examined and found to be far from the operative field. Under direct visualization the two 5 mm ports were removed, pneumoperitoneum reduced, and the umbilical port removed. The fascia of the umbilical port site was reapproximated with interrupted suture of 0 Vicryl. The skin of all trocar sites was reapproximated with 4-0 Monocryl and covered with dry sterile dressings. The patient was awakened extubated and transported to recovery area in stable condition. All sponge lap needle counts are correct x2.
--- NOTE | 2023-05-31 09:54 | W.ANESPOSTOP ---
Postoperative Evaluation Date, Time and Location Date Performed: 05/31/23 Time Performed: 09:54 Patient Location: Day Surgery Unit Vital Signs Most Recent Imported Vital Signs: Most Recent Vital Signs Temp Pulse Resp BP Pulse Ox 36.1 C L 59 L 16 111/74 98 05/31/23 09:40 05/31/23 09:40 05/31/23 09:40 05/31/23 09:40 05/31/23 09:40 Pain Score Most Recent Pain Score: Most Recent Pain Score Pain Level 2 05/31/23 09:40 Assessment Mental Status: Awake (Alert & Oriented to Patient Baseline) Airway and Respiratory Function: Patent airway with normal (patient baseline) respiratory exam Cardiovascular Function: Hemodynamically Stable Hydration Status: Adequately Hydrated Nausea & Vomiting: No Nausea or Vomiting Pain: Pt. Denies Any Pain Peripheral Nerve Block: Patient did not receive a nerve block
--- NOTE | 2023-05-31 10:02 | W.PM.DSUDISC ---
Date of service: 05/31/23 Time of Service: 10:03 Discharge Plan Disposition Patient Disposition: Home Condition: Good Discharge Details Reason For Visit: Laparoscopic bilateral salpingectomy Attending Provider: Omayra Carver Primary Care Provider: NICOLÁS NAVARRO Home Meds and New Rx's Prescriptions: Discontinued medroxyprogesterone 150 mg/mL syringe 150 mg IM [id number] Qty: 1 5RF Discharge Instructions Additional Instructions: [facility]. You may remove the bandages in 24 hours and the Steri-Strips in 1 week. It is all right if the Steri-Strips fall off on their own Stand Alone Forms: Anesthesia Discharge Inst., DSU Post Sql Programmer Analyst SurgeryW/Laura Condon (DSU) Activity:: Activity as Tolerated Remove Dressings/Wound Care:: 24 hours Shower/Bathe:: 24 hours Diet:: As Tolerated Discharge Orders Discharge Orders: Discharge Order (Routine); Ordered 05/31/23 Ordered By: Omayra Carver DS: Diagnosis Discharge Diagnosis (1) Encounter for female sterilization procedure: Status: Acute
== END 2023-05-31 10:45 | disposition home or self-care (01) ==
PROVIDERS: PCP Nurse Practitioner Family; Visit Provider Obstetrics & Gynecology Gynecology
PROC: (CPT 58670; principal; 2023-05-31 07:30)
DX: Z30.2 Encounter for sterilization (principal)
CPT/HCPCS: 58661; 84703; 88302; J0131; J1100; J1885; J2001; J2250; J2405; J2704; J3010

== ENCOUNTER 2024-05-08 08:45 | Outpatient (REF) | payer MEDICAID, SELFPAY ==
--- NOTE | 2024-05-08 08:30 | PAPFT_PTH ---
PATIENT: Yana Duron LOC: [facility] U#:[id number] AGE/SX: 43/F ROOM: RE05/08/[address]: Nayely Schumacher NP : 1980 BED: DIS: 05/08/2024 SPEC #: [id number] RECD: 05/08/24 12:53 STATUS: VALERIO REQ #: [id number] CESAR: 05/08/24 08:[address]: Nayely Schumacher NP DEPT: [facility] Cytology RECD BY: Carey Duong ENTERED: 05/08/24 12:53 SP TYPE: PAPFT OTHR DR: NICOLÁS NAVARRO NP Tissues: 1 - CX/ENDOCX FOR PAP SMEARS Procedures: PAP THIN PREP/UVM Screening HPV DNA PROBE Comments: [id number] (HPV 16 & 18/45)
== END 2024-05-08 08:46 | disposition home or self-care (01) ==
LOC: LBN 08:45
PROVIDERS: PCP Nurse Practitioner Family; Visit Provider Nurse Practitioner Women's Health
DX: Z12.4 Encounter for screening for malignant neoplasm of cervix (principal)
CPT/HCPCS: 88142; 87624

== ENCOUNTER 2024-05-23 00:38 | Outpatient (CLI) | payer MEDICAID, SELFPAY ==
--- NOTE | 2024-05-23 07:45 | DI.MAMMO_ITS ---
Exam(s) MAMMO SCREENING EXAM: MAMMO SCREENING CLINICAL HISTORY: screening TECHNIQUE: Bilateral full field digital CC and MLO mammographic images were obtained with 3D tomosyn thesis and utilizing computer aided detection (CAD). COMPARISON: Available for comparison. FINDINGS: Masses/Architectural Distortion: None seen. Microcalcifications: No suspicious pleomorphic-type are seen. Skin Thickening/Nipple Retraction: None. IMPRESSION: 1. No significant interval change with no specific features of malignancy noted. 2. Unless there is more urgent need, screening mammography is recommended, as per [employer] guidelines. BI-RADS Category 1 - Negative Breast Density - Category C - Heterogeneously dense Breast density category C or D implies that the patient has dense breast tissue. Dense breast tissue is very common and is not abnormal but dense breast tissue can make it harder to find cancer on a ma mmogram. Also, dense breast tissue may increase their breast cancer risk. This information about the result of the mammogram report was provided to the patient to raise their awareness. Use this report when you speak with the patient about their risks for breast cancer, which includes their family hist ory. At that time, you may recommend for more screening tests (Ultrasound or MRI) as they might be us eful based on their risk. A negative radiographic report should not delay biopsy if a dominant or clinically suspicious mass is present. Up to ten percent of cancers are not identified on mammography. A negative report may reinforce clinical impression. Adenosis and dense breasts may obscure an underlying neoplasm. False positive reports average 6 to 10%. Patient will receive a letter notifying them of these results.
== END 2024-05-23 00:58 ==
PROVIDERS: PCP Nurse Practitioner Family; Visit Provider Nurse Practitioner Women's Health
DX: Z12.31 Encounter for screening mammogram for malignant neoplasm of breast (principal); R23.2 Flushing; Z01.419 Encounter for gynecological examination (general) (routine) without abnormal findings; Z12.4 Encounter for screening for malignant neoplasm of cervix; N77.1 Vaginitis, vulvitis and vulvovaginitis in diseases classified elsewhere
CPT/HCPCS: 77063; 77067

== ENCOUNTER 2024-10-13 08:23 | Emergency (ER) | payer MEDICAID, SELFPAY ==
[2024-10-13 08:26] VITALS: BP 131/84; PULSE 60; RESP 14; TEMP 36.3; O2SAT 98
--- NOTE | 2024-10-13 08:30 | DI.RAD_ITS ---
Exam(s) XR RIBS LT W PA LAT CHEST EXAM: XR RIBS LT W PA LAT CHEST CLINICAL HISTORY: left rib pain ant/ mid axillary 7-10. TECHNIQUE: 2D digital imaging was performed. COMPARISON: CR XR PORTABLE CHEST AP from 05/09/2022 FINDINGS: Total six views: Left ribs-four views: There are no acute left rib fractures identified. No left rib lesions. Left c lavicle lung glenohumeral joint appear unremarkable. Chest-two views: Heart size is normal and the mediastinum is not widened. There are parallel Bose rods noted in the thoracolumbar spine, similar to previous. There are no fractures of these rods which extend devon n to the L2-3 level. There are no lung infiltrates nor pleural effusions. No pneumothorax. No rib fracture seen. Clavic le is intact. IMPRESSION: No left rib fractures identified. No acute pulmonary findings. DATA REPOSITORY: RADIATION DOSE DELIVERED:
--- NOTE | 2024-10-13 09:04 | DI.VRAD_ITS ---
PROCEDURE INFORMATION: Exam: XR Left Ribs Exam date and time: 10/13/2024 8:55 AM Age: 43 years old Clinical indication: Other: Left rib pain ant/mid axillary 7-10 TECHNIQUE: Imaging protocol: Radiologic exam of the left ribs. Views: 2 views. COMPARISON: CR XR PORTABLE CHEST AP 05/09/2022 11:53 AM FINDINGS: Bones/joints: No definite rib fracture identified. Parallel spinous rods in the thoracolumbar spine Soft tissues: Normal. IMPRESSION: No definite rib fracture identified. PROCEDURE INFORMATION: Exam: XR Chest Exam date and time: 10/13/2024 8:55 AM Age: 43 years old Clinical indication: Other: Left rib pain ant/mid axillary 7-10 TECHNIQUE: Imaging protocol: Radiologic exam of the chest. Views: 2 views. COMPARISON: CR XR PORTABLE CHEST AP 05/09/2022 11:53 AM FINDINGS: Lungs: Unremarkable. No consolidation. Pleural spaces: Unremarkable. No pleural effusion. No pneumothorax. Heart/Mediastinum: Unremarkable. No cardiomegaly. Bones/joints: Parallel spinous rods and pedicular screws in the thoracolumbar spine IMPRESSION: No acute process Dictated and Authenticated by: Sara Loving MD. Orderin Mora Patino MD
--- NOTE | 2024-10-13 09:17 | ED.GENADUL_ITS ---
Discharge Plan Disposition Patient Disposition: Home Condition: Stable Discharge Details Clinical Impression: Chest wall contusion Primary Care Provider: NICOLÁS NAVARRO ED Provider: Carey Velazco Home Meds and New Rx's Prescriptions: Continued epinephrine 0.3 mg/0.3 mL auto-injector 0.3 mg IM .COMPLEX PRN Patient Comments: INJECT 0.3MG (1 PEN) INTRAMUSCULARLY 1 TIME FOR ANAPHYLAXIS MAY REPEAT NEEDED 1 TIME AFTER 5 TO 15 MINUTES Rx Instructions: 0.3 mg intramuscularly PRN; 0.3 mg intramuscularly; twice prn Discharge Instructions Instructions: Bruised Rib (DC) Additional Instructions: take ibuprofen and tylenol per pkg instructions may use otc lidoderm patches, per pkg instructions make sure you continue to take complete deep breath at least 6 times daily to prevent pneumonia with fever, chills, shortness of breath, please return for reassessment Referrals: NICOLÁS NAVARRO, CAT HOOKER [Primary Care Provider] - 2 days HPI General Date/Time Provider Initiated Documentation: 10/13/24 08:28 . HPI Narrative: The patient is a 43-year-old female who presents following a fall approximately 2 days prior to arrival. She reports that the next day her dog jumped on top of her, exacerbating the pain in her left rib cage. The pain intensifies with deep breathing and movement. She is not experiencing shortness of breath, fever, chills, blood in urine, abdominal pain, nausea, vomiting, or any history of coagulopathy. Related Data Home Medications ?Medication ?Instructions ?Recorded ?Confirmed epinephrine 0.3 mg/0.3 mL 0.3 mg IM .COMPLEX PRN 10/13/24 10/13/24 injection, auto-injector Allergies Allergy/AdvReac Type Severity Reaction Status Date / Time amoxicillin trihydrate (From Allergy Severe Hives Verified 10/13/24 08:34 Augmentin) sulfamethoxazole (From Allergy Severe Hives Verified 10/13/24 08:34 Bactrim) trimethoprim (From Bactrim) Allergy Severe Hives Verified 10/13/24 08:34 tree nut Allergy Anaphylaxsi Verified 10/13/24 08:34 s amoxicillin (From Augmentin) AdvReac Severe Hives Verified 10/13/24 08:34 clavulanic acid (From AdvReac Severe Hives Verified 10/13/24 08:34 Augmentin) azithromycin AdvReac Intermediate Stomach Verified 10/13/24 08:34 cramps Oral contrast Allergy Swelling/Ed Uncoded 10/13/24 08:34 malou General Stated Complaint: Chest/Rib FRANCIA: 4 Exam Narrative Exam Narrative: General Appearance: Patient is alert and oriented, no acute distress. Vital signs: Within normal limits. HEENT: Within normal limits. Respiratory: Lungs are clear to auscultation. No respiratory distress. Cardiovascular: Cardiac rate and rhythm are regular. Gastrointestinal: No tenderness over spleen, left upper quadrant or left flank. No visible signs of trauma. Back, Musculoskeletal: Reproducible tenderness over left anterior and mid axillary rib cage. Skin: Warm and dry, no rash. Neurological: Normal. Course Vital Signs Vital signs: Vital Signs Temperature 36.3 C L 10/13/24 08:26 Pulse 60 10/13/24 08:26 Respiratory Rate 14 10/13/24 08:26 Blood Pressure 131/84 10/13/24 08:26 Pulse Oximetry 98 10/13/24 08:26 Temperature 36.3 C L 10/13/24 08:26 Temperature Source Oral 10/13/24 08:26 Pulse 60 10/13/24 08:26 Respiratory Rate 14 10/13/24 08:26 Respiratory Effort Normal, Non-Labored 10/13/24 08:29 Respiratory Depth Normal 10/13/24 08:29 Respiratory Pattern Normal 10/13/24 08:29 Blood Pressure 131/84 10/13/24 08:26 Blood Pressure Position Sitting 10/13/24 08:26 Pulse Oximetry 98 10/13/24 08:26 Oxygen Delivery Method Room Air 10/13/24 08:26 Oxygen Flow Rate 0 10/13/24 08:26 Pain Level 5 10/13/24 08:29 Medical Decision Making Imaging Chest x-ray does not show evidence of rib fracture or pneumothorax. Initial Assessment: 43-year-old female presents with left rib cage pain following a fall 2 days prior and subsequent exacerbation by her dog jumping on her. Pain worsens with deep breathing and movement. No shortness of breath, fever, chills, blood in urine, abdominal pain, nausea, vomiting, or history of coagulopathy. ED Course: - Physical exam: alert and oriented, no acute distress. - Reproducible tenderness over left anterior and mid-axillary rib cage. - No tenderness over spleen, left upper quadrant, or left flank. - Lungs clear to auscultation. - Cardiac rate and rhythm regular. - No respiratory distress. - X-ray of chest: no evidence of rib fracture or pneumothorax (read by me). - Encouraged to take at least six full inhalations and exhalations daily to prevent pneumonia. - Advised to take ibuprofen and Tylenol as needed for pain. - Use Lidoderm patches as needed. - Discharged home in stable condition with stable vitals. Final Assessment: Patient with left rib cage pain, no evidence of rib fracture or pneumothorax on x-ray. Pain management and preventive measures for pneumonia discussed. Clinical Impression: - Left rib cage pain Disposition: - Discharge - Follow-Up: Reevaluate in 1 week if symptoms persist or worsen. Patient Education: Advised to take at least six full inhalations and exhalations daily to prevent pneumonia. Instructed on pain management with ibuprofen, Tylenol, and Lidoderm patches. Advised to return to the emergency department if signs or symptoms of pneumonia develop, including fever, chills, or shortness of breath. MDM Components Evaluation: - Number of Differential Diagnoses or Management Options: Left rib cage pain - Amount and Complexity of Data Reviewed: X-ray of chest - Risk of Complication and Morbidity or Mortality: Low risk given no evidence of rib fracture or pneumothorax, but advised to monitor for signs of pneumonia. 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 denies Wrist fracture, left Scoliosis Opioid dependence in remission 16 years per pt Anxiety disorder Surgical History Encounter for female sterilization procedure 05/31/23. Laparoscopic tubal sterilization. 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
== END 2024-10-13 09:16 | disposition home or self-care (01) ==
PROVIDERS: Emergency Provider Physician Assistant; PCP Nurse Practitioner Family
DX: S20.212A Contusion of left front wall of thorax, initial encounter (principal); W19.XXXA Unspecified fall, initial encounter; F17.210 Nicotine dependence, cigarettes, uncomplicated
CPT/HCPCS: 99283; 71046; 71100

== ENCOUNTER 2025-01-15 10:03 | Outpatient (REF) | payer MEDICAID, SELFPAY ==
[2025-01-15 15:54] LABS: HCT 40.8 % (36.0-46.0); HGB 13.7 g/dL (11.2-15.7); MCH 31.6 pg (27.0-33.0); MCHC 33.6 % (32.0-36.0); MCV 94 fL (80-95); MPV 9.9 fL (8.0-11.0); Platelet Count 258 10^3/uL (130-400); RBC 4.34 10^6/uL (3.93-5.22); RDW 12.7 % (11.7-14.6); RDW-SD 43.8 fL; WBC 8.86 10^3/uL (4.4-10.8)
[2025-01-15 16:35] LABS: ALT 23 U/L (14-59); AST 17 U/L (15-37); Alkaline Phosphatase 63 U/L (46-116); Amylase 54 U/L (25-115); Anion Gap 9.7 mmol/L (3-11); BUN 9 mg/dL (7-18); Bilirubin, Total 0.7 mg/dL (0.2-1.0); CO2 27.3 mmol/L (21.0-32.0); CREATININE 0.9 mg/dL (0.55-1.02); Calcium 8.8 mg/dL (8.5-10.1); Chloride 105 mmol/L (98-107); Estimated GFR 81.35 (mL/min/1.73m2); Glucose 98 mg/dL (74-106); Lipase 23 U/L (<78); Potassium 4.4 mmol/L (3.5-5.1); Sodium 142 mmol/L (136-145); TSH (W/Ref FT4) 1.56 uIU/mL (0.36-3.74); Total Protein 6.7 g/dL (6.4-8.2)
== END 2025-01-15 10:04 | disposition home or self-care (01) ==
LOC: NCHCN 10:03
PROVIDERS: PCP Nurse Practitioner Family; Visit Provider Nurse Practitioner Family
DX: F41.9 Anxiety disorder, unspecified (principal); F10.90 Alcohol use, unspecified, uncomplicated
CPT/HCPCS: 80053; 83690; 85027; 82150; 84443

== ENCOUNTER 2025-02-03 01:08 | Outpatient (CLI) | payer MEDICAID, SELFPAY ==
--- NOTE | 2025-02-03 | DI.RAD_ITS ---
Exam(s) XR LUMBAR SPINE COMPLETE EXAM: XR LUMBAR SPINE COMPLETE CLINICAL HISTORY: LUMBAGO WITH SCIATICA, LT,RT,M54.41,M54.42,SCOLIOSIS DEFORMITY,M41.9. TECHNIQUE: 2D digital imaging was performed. Five views. COMPARISON: CT CT renal colic wo from 11/04/2018 CR XR CHEST 2V PA LATERAL from 01/28/2019 CR XR HIP RT COMPLETE AP PELVIS from 04/13/2022 CR XR PORTABLE CHEST AP from 05/09/2022 FINDINGS: BONES: No acute fracture or destructive lesion. There are rods in the thoracic spine through the L2 level. DISKS: There is severe narrowing at the L2-3 ED space, eccentric toward the right. There is prominent sclerosis as well as at endplate osteophytes. Findings a appear grossly similar to prior CT. Intervertebral there is mild narrowing of the L3-4 and L4-5 disc spaces with endplate osteophytes. ALIGNMENT: There is a levoscoliosis centered at L2-3, similar to prior CT. No spondylolisthesis. SOFT TISSUE: Normal. IMPRESSION: Roughly stable degenerative changes and scoliosis at L2-3. Rods again noted in thoracic through L2 level. DATA REPOSITORY: RADIATION DOSE DELIVERED:
== END 2025-02-03 01:28 ==
LOC: DI 01:08
PROVIDERS: PCP Nurse Practitioner Family; Visit Provider Nurse Practitioner Family
DX: M54.41 Lumbago with sciatica, right side (principal); M54.42 Lumbago with sciatica, left side; M41.9 Scoliosis, unspecified
CPT/HCPCS: 72110

== ENCOUNTER 2025-02-16 13:59 | Emergency (ER) | payer MEDICAID, SELFPAY ==
[2025-02-16 14:01] VITALS: BP 137/70; PULSE 86; RESP 16; TEMP 36.6; O2SAT 97
[2025-02-16 14:07] VITALS: BP 137/70; PULSE 86; RESP 16; TEMP 36.6; O2SAT 97
--- NOTE | 2025-02-16 15:06 | ED.GENADUL_ITS ---
Discharge Plan Disposition Patient Disposition: Home Condition: Stable Discharge Details Clinical Impression: Abrasion of cornea, right Primary Care Provider: NICOLÁS NAVARRO ED Provider: Chao Monzon Home Meds and New Rx's Prescriptions: Continued epinephrine 0.3 mg/0.3 mL auto-injector 0.3 mg IM .COMPLEX PRN Patient Comments: INJECT 0.3MG (1 PEN) INTRAMUSCULARLY 1 TIME FOR ANAPHYLAXIS MAY REPEAT NEEDED 1 TIME AFTER 5 TO 15 MINUTES Rx Instructions: 0.3 mg intramuscularly PRN; 0.3 mg intramuscularly; twice prn Discharge Instructions Instructions: Erythromycin (Ophthalmic), Corneal Abrasion ED Additional Instructions: Please take ibuprofen 600 mg by mouth every 6-8 hours as needed for pain for the next few days. Use erythromycin eye ointment as follows: Apply 0.5 inch ribbon to right eye 4 times a day for the next 5 days. Please follow-up with [facility] eye healthcare advisory services manager tomorrow. Return to the emergency department immediately for any worsening or new concerning symptoms. Referrals: [facility] [Outside] HPI General Mode of arrival: ambulatory . Date/Time Provider Initiated Documentation: 02/16/25 14:05 . Limitations to Documentation: no limitations . Information obtained by: patient . HPI Narrative: HISTORY OF PRESENT ILLNESS 44-year-old female with concern for foreign body in right eye. Reports intermittent stabbing pain after mowing and getting debris in eye. Pain persists despite saline rinse. No history of diabetes or thyroid issues. Related Data Home Medications ?Medication ?Instructions ?Recorded ?Confirmed epinephrine 0.3 mg/0.3 mL 0.3 mg IM .COMPLEX PRN 10/1302/16/25 injection, auto-injector Allergies Allergy/AdvReac Type Severity Reaction Status Date / Time amoxicillin trihydrate (From Allergy Severe Hives Verified 02/16/25 14:05 Augmentin) sulfamethoxazole (From Allergy Severe Hives Verified 02/16/25 14:05 Bactrim) trimethoprim (From Bactrim) Allergy Severe Hives Verified 02/16/25 14:05 tree nut Allergy Anaphylaxsi Verified 02/16/25 14:05 s amoxicillin (From Augmentin) AdvReac Severe Hives Verified 02/16/25 14:05 clavulanic acid (From AdvReac Severe Hives Verified 02/16/25 14:05 Augmentin) azithromycin AdvReac Intermediate Stomach Verified 02/16/25 14:05 cramps Oral contrast Allergy Swelling/Ed Uncoded 02/16/25 14:05 malou General Stated Complaint: EyeProblem FRANCIA: 4 Review of Systems Eyes Eyes: Reports as per HPI and Denies loss of vision Neurologic Neurologic: Denies loss of vision Exam Eyes Alignment and Position: alignment normal Periorbital: periorbital findings normal Eyelids: eyelids normal Conjunctivae: conjunctivae normal Sclera: sclerae normal Cornea: corneas abnormal on the right fluorescein used, abrasion punctate and at the following clock position (6) and foreign body wooden; without a rust ring and fluorescein used Pupils: PERRL EOM: EOM intact bilaterally Direct ophthalmoscopy: normal light reflex Course Vital Signs Vital signs: Vital Signs Temperature 36.6 C 02/16/25 14:01 Pulse 86 02/16/25 14:01 Respiratory Rate 16 02/16/25 14:01 Blood Pressure 137/70 02/16/25 14:01 Pulse Oximetry 97 02/16/25 14:01 Temperature 36.6 C 02/16/25 14:07 Temperature Source Oral 02/16/25 14:07 Pulse 86 02/16/25 14:07 Respiratory Rate 16 02/16/25 14:07 Blood Pressure 137/70 02/16/25 14:07 Blood Pressure Position Sitting 02/16/25 14:07 Pulse Oximetry 97 02/16/25 14:07 Oxygen Delivery Method Room Air 02/16/25 14:07 Oxygen Flow Rate 0 02/16/25 14:07 Pain Level 9 02/16/25 14:07 Medical Decision Making ASSESSMENT AND PLAN Initial Assessment: 44-year-old female presenting with concern for foreign body in right eye. Stabbing sensation following mowing incident. Pain persists despite saline rinse. Differential Diagnosis: - Foreign body: Considered due to patient's history of mowing and sensation of something stuck inside eyelid. Plan to assess with Perry lamp. - Corneal abrasion: Considered due to intermittent stabbing pain. Plan to assess with Perry lamp. ED Course: - Tetracaine drops administered -patient had significant improvement in discomfort. - Assessed with Perry lamp initially and small punctate foreign body removed with Q-tip, patient then examined under slit lamp and corneal abrasion present with no retained foreign body. - Erythromycin ointment started - Tetanus up-to-date Final Assessment: 44-year-old female here with foreign body and corneal abrasion on right. Plan for continued erythromycin ointment and follow-up with ophthalmology. Clinical Impression: - Foreign body right eye removed - Corneal abrasion This document was written with the assistance of MALENA Pacheco. The patient con sented to its use. 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 denies Wrist fracture, left Scoliosis Opioid dependence in remission 16 years per pt Anxiety disorder Surgical History Encounter for female sterilization procedure 05/31/23. Laparoscopic tubal sterilization. History of back surgery section x2 Social History Smoking/Tobacco Use Status: Current every day Tobacco Type: cigarettes Tobacco: How many years used: 20 Quit status: has quit before Smoking risk assessment performed?: Yes Alcohol Intake: current Alcohol Intake frequency: a few times a week Drug use: Current Sobriety Substance use type: does not use Housing: house current occupation: public works techician Sexually active: Yes Current gender identity: female What is your relationship status?: Panel score (0-1 are the most socially isolated patients): 1 What type of physical activity do you participate in: regular exercise Seatbelt use: always Do you feel safe at home: Yes Do you feel safe in your relationship?: Yes Female Reproductive History Menstrual control method: permanent sterilization History History 2 Para 2 Hx # Term Pregnancies Multiple births Hx # Pregnancies Ectopic pregnancies AB induced Hx Number of Living Children AB spontaneous PAWSS Have you Been Recently Intoxicated or Drunk Within the Last 30 days?: No Have you Ever Experienced Previous Episodes of Alcohol Withdrawal?: No Have you ever Experienced Withdrawal Seizures?: No Have you ever Experienced Delirium Tremens(DT)s?: No Have you ever undergone Alcohol Rehabilitation Treatment (i.e, inpt ot outpatient treatment programs)?: No Have you ever Experienced Blackouts?: No Have you ever Combined Alcohol with other Downers within the last 90 days?: No Have you ever Combined Alcohol with any other Substance of Abuse during the last 90 days?: No Positive Blood Alcohol level on Presentation? [PCS.BAL]: Unable to Obtain Evidence of Increased Autonomic Activity (i.e. HR>120, tremor, sweating, agitat ion, nausea)?: No Result: 0
[2025-02-16] MEDS: Tetracaine 0.5% 4 ML BTL OP (15:09)
[2025-02-16] MEDS: Fluorescein STRIPS 100/BOX 1 MG OP (15:10)
[2025-02-16] MEDS: Erythromycin Ophth Oint 3.5 GM TUBE OD (15:16)
[2025-02-16 15:22] VITALS: BP 130/67; PULSE 84; RESP 16; TEMP 36.6; O2SAT 97
== END 2025-02-16 15:22 | disposition home or self-care (01) ==
PROVIDERS: Emergency Provider Student in an Organized Health Care Education/Training Program; PCP Nurse Practitioner Family
DX: T15.01XA Foreign body in cornea, right eye, initial encounter (principal); F17.210 Nicotine dependence, cigarettes, uncomplicated; Z86.718 Personal history of other venous thrombosis and embolism
CPT/HCPCS: 99283

== ENCOUNTER 2025-03-20 08:13 | Emergency (ER) | payer MEDICAID, SELFPAY ==
[2025-03-20 08:15] VITALS: BP 106/87; PULSE 73; RESP 16; TEMP 36.5; O2SAT 97
--- NOTE | 2025-03-20 08:39 | ED.GENADUL_ITS ---
Discharge Plan Disposition Patient Disposition: Home Condition: Stable Discharge Details Clinical Impression: Rash Primary Care Provider: NICOLÁS NAVARRO ED Provider: Aravind Schumacher Home Meds and New Rx's Prescriptions: New clindamycin HCl 150 mg capsule 450 mg PO TID 7 Days Qty: 63 0RF Continued prednisone 10 mg tablet 10 mg PO DAILY Qty: 30 0RF Rx Instructions: Take 4 tabs for 3 days, 3 tabs for 3 days, 2 tabs for 3 days, and 1 tab for 3 days epinephrine 0.3 mg/0.3 mL auto-injector 0.3 mg IM .COMPLEX PRN Patient Comments: INJECT 0.3MG (1 PEN) INTRAMUSCULARLY 1 TIME FOR ANAPHYLAXIS MAY REPEAT NEEDED 1 TIME AFTER 5 TO 15 MINUTES Rx Instructions: 0.3 mg intramuscularly PRN; 0.3 mg intramuscularly; twice prn Discharge Instructions Additional Instructions: I would recommend feeling the prednisone that was prescribed to you and taking your first dose tomorrow. If not improving within a week follow-up with your primary care provider. If you feel more ill, have sustained high fevers or new symptoms such as persistent vomiting return to the emergency department for reevaluation. HPI General Mode of arrival: ambulatory . Date/Time Provider Initiated Documentation: 03/20/25 08:24 . Limitations to Documentation: no limitations . Information obtained by: patient . History of Present Illness 44 year old F presents to the emergency department with the chief complaint of itching rash, described as moderate, Patient started experiencing this day(s) (5) and it has been constant. No relieving factors improve symptom(s), No exacerbating factors reported . Patient notes denies chest pain, nausea/vomiting and shortness of breath. Patient did receive the following treatments prior to arrival, none Related Data Home Medications ?Medication ?Instructions ?Recorded ?Confirmed epinephrine 0.3 mg/0.3 mL 0.3 mg IM .COMPLEX PRN 10/1302/16/25 injection, auto-injector prednisone 10 mg tablet 10 mg PO DAILY #30 tabs 03/3103/14/25 clindamycin HCl 150 mg capsule 450 mg (3 x 150 mg) PO TID 7 days 03/20/25 #63 caps Previous Rx's ?Medication ?Instructions ?Recorded prednisone 10 mg tablet 10 mg PO DAILY #30 tabs 08/0 8/25 clindamycin HCl 150 mg capsule 450 mg (3 x 150 mg) PO TID 7 days 03/20/25 #63 caps Allergies Allergy/AdvReac Type Severity Reaction Status Date / Time amoxicillin trihydrate (From Allergy Severe Hives Verified 03/20/25 08:26 Augmentin) sulfamethoxazole (From Allergy Severe Hives Verified 03/20/25 08:26 Bactrim) trimethoprim (From Bactrim) Allergy Severe Hives Verified 03/20/25 08:26 tree nut Allergy Anaphylaxsi Verified 03/20/25 08:26 s amoxicillin (From Augmentin) AdvReac Severe Hives Verified 03/20/25 08:26 clavulanic acid (From AdvReac Severe Hives Verified 03/20/25 08:26 Augmentin) azithromycin AdvReac Intermediate Stomach Verified 03/20/25 08:26 cramps Oral contrast Allergy Swelling/Ed Uncoded 03/20/25 08:26 malou General Stated Complaint: RashLesion FRANCIA: 3 Review of Systems All systems reviewed & are unremarkable except as noted in HPI and below Constitutional Constitutional: Reports chills, Reports fever(s) (99 deg) and Denies weakness Cardiovascular Cardiovascular: Denies chest pain and Denies dyspnea Respiratory Respiratory: Denies cough and Denies dyspnea Gastrointestinal Gastrointestinal: Denies abdominal pain, Denies nausea and Denies vomiting Integumentary/Breasts Skin/Breast: Reports rash Neurologic Neurologic: Denies weakness Exam Const General: no acute distress Orientation: alert [facility] Head: normal to inspection Ears: external ears normal General nose exam: external nose normal Mouth: moist mucous membranes Eyes General: appearance normal, both eyes and all related structures Neck Neck: normal visual inspection Resp Effort & Inspection: normal respiratory effort and able to speak in complete sentences Cardio Rate: regular rate Skin General skin exam: erythema and excoriation Neuro General: patient alert and patient oriented x3 Extrem General: normal to inspection Psych Mental Status: mental status grossly normal Course Vital Signs Vital signs: Vital Signs Temperature 36.5 C 03/20/25 08:15 Pulse 73 03/20/25 08:15 Respiratory Rate 16 03/20/25 08:15 Blood Pressure 106/87 03/20/25 08:15 Pulse Oximetry 97 03/20/25 08:15 Temperature 36.5 C 03/20/25 08:15 Temperature Source Temporal Artery Scan 03/20/25 08:15 Pulse 73 03/20/25 08:15 Respiratory Rate 16 03/20/25 08:15 Blood Pressure 106/87 03/20/25 08:15 Blood Pressure Position Sitting 03/20/25 08:15 Pulse Oximetry 97 03/20/25 08:15 Oxygen Delivery Method Room Air 03/20/25 08:15 Oxygen Flow Rate 0 03/20/25 08:15 Pain Level 3 03/20/25 08:15 Comment taking ibuprofen 03/20/25 08:15 Medical Decision Making 44-year-old female with a history of anxiety, opioid dependence in remission who comes in with an itching rash that started on her extremities and now is on her torso. She says she has had some fevers though her highest that she documented is 99. She denies any recent travel. She was seen in urgent care and placed on prednisone but she says she has not started it. She has what appear to be hives on her arms bilaterally with mild erythema blanching in various sizes. There is no crepitus. She also has what appear to be pick santos on her torso. These have 2 mm of surrounding erythema and she states they have been itchy which is what she has been scratching them. She has no mucous membrane involvement. I suspect contact dermatitis, will check CBC, inflammatory markers and CMP and treat with Benadryl and IV methylprednisolone. No mucous membrane lesions so I doubt this is SJS or TEN Patient feels significantly better, has a mild leukopenia, I did send a tick panel but she is not sure if she has had any ticks on her, we will wait to start doxycycline until tick panel back. Jasmin was started on clindamycin for possible wound infections. She is stable for discharge and will start the prednisone that was prescribed to her by urgent care. Return precautions given Differential Diagnosis Differential Diagnosis: Contact dermatitis, cellulitis Medical Records Medical records reviewed: Yes I reviewed the patient's medical records. Lab Data Lab results reviewed: Yes I reviewed the patient's lab results. 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 denies Wrist fracture, left Scoliosis Opioid dependence in remission 16 years per pt Anxiety disorder Surgical History Encounter for female sterilization procedure 05/31/23. Laparoscopic tubal sterilization. 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
[2025-03-20] MEDS: diphenhydrAMINE 50 MG/ML VIAL 25 MG IVP (08:57)
[2025-03-20] MEDS: methylPREDNISolone SUCC 125 MG VIAL IVP (08:57)
[2025-03-20] MEDS: Normal Saline Flush 10 ML SYR IVP (08:58)
[2025-03-20 09:06] LABS: Abs Immature Grans 0.00 10^3/uL (0.0-0.06); HCT 42.6 % (36.0-46.0); HGB 14.7 g/dL (11.2-15.7); Immature Grans % 0.0 %; MCH 31.7 pg (27.0-33.0); MCHC 34.5 % (32.0-36.0); MCV 92 fL (80-95); MPV 9.0 fL (8.0-11.0); Platelet Count 138 10^3/uL (130-400); RBC 4.63 10^6/uL (3.93-5.22); RDW 12.1 % (11.7-14.6); RDW-SD 41.3 fL; WBC 3.30 10^3/uL (4.4-10.8)
[2025-03-20 09:08] LABS: ESR 1 mm/hr (0-20)
[2025-03-20 09:54] LABS: ALT 27 U/L (14-59); AST 32 U/L (15-37); Albumin 3.7 g/dL (3.4-5.0); Alkaline Phosphatase 56 U/L (46-116); Anion Gap 10.2 mmol/L (3-11); BUN 7 mg/dL (7-18); Bilirubin, Total 0.6 mg/dL (0.2-1.0); CO2 23.8 mmol/L (21.0-32.0); Calcium 8.6 mg/dL (8.5-10.1); Chloride 103 mmol/L (98-107); Estimated GFR 109.98 (mL/min/1.73m2); Glucose 116 mg/dL (74-106); Potassium 4.2 mmol/L (3.5-5.1); Sodium 137 mmol/L (136-145); Total Protein 6.7 g/dL (6.4-8.2)
[2025-03-20 09:56] LABS: C-Reactive Protein 2.51 mg/dL (<or=0.5); Magnesium 1.9 mg/dL (1.8-2.4)
[2025-03-20 10:12] LABS: Procalcitonin 0.29 ng/mL
[2025-03-20] MEDS: Clindamycin 150 MG CAP 450 MG PO (11:01)
[2025-03-21 12:30] LABS: Lyme Ab w Rflx to Lyme Confirm Negative (Negative)
[2025-03-23 21:31] LABS: B. miyamotoi PCR Negative (Negative); Babesia divergens/MO-1 Negative (Negative); Ehrlichia muris eauclairensis Negative (Negative)
--- NOTE | 2025-03-23 22:03 | NUR.NOTE ---
Patient chart accessed to copy critical sent out lab result to notify physician of positive Babesia microti.Nursing Note:
--- NOTE | 2025-03-24 07:54 | W.ED.FU ---
Date of service: 03/24/25 Time of Service: 07:54 Follow Up Plan: Patient's tick panel came back positive for babesia. I called and spoke with the patient and she is feeling well and states her symptoms have resolved. She is written for 450 mg 3 times daily of clindamycin, I am going to send in prescription for 150 mg tablets so she can take 600 mg doses 3 times a day. She will follow-up with her PCP and return precautions given
== END 2025-03-20 11:19 | disposition home or self-care (01) ==
PROVIDERS: Emergency Provider Emergency Medicine; PCP Nurse Practitioner Family
DX: R21 Rash and other nonspecific skin eruption (principal)
CPT/HCPCS: 99284; 99283; 36415; 96374; 96375; 80053; 84145; 85652; 87798; 83605; 83735; 85025; 86140; 86618; J1200; J2919

== ENCOUNTER 2025-03-27 00:18 | Outpatient (CLI) | payer MEDICAID, SELFPAY ==
--- NOTE | 2025-03-27 07:10 | DI.US_ITS ---
Exam(s) US PELVIS TRANSVAGINAL EXAM: US PELVIS TRANSVAGINAL CLINICAL HISTORY: ? ovarian cysts on MRI, Ovarian cyst, N83.209 TECHNIQUE: Transabdominal and transvaginal imaging was performed using standard protocol. COMPARISON: US PELVIS TRANSVAG from 05/03/[address] renal colic wo from 11/04/2018 MR MRI, LUMBAR SPINE S/ CONTRAST from 02/25/2025 FINDINGS: UTERUS: Anteverted. 8.1 x 4.4 x 4.2 cm Endometrium: 4 mm Myometrium: Unremarkable. Cervix: Unremarkable. OVARIES: Right: Cyst or mass: There are few tiny peripheral follicles. Left: Cyst or mass: There are few tiny peripheral follicles. Involuting dominant follicle. DOPPLER: Color: Symmetric and uniform flow to both ovaries. No hyperemia. CUL-DE-SAC: Free fluid: Small amount of free fluid IMPRESSION: 1. Normal-appearing uterus with endometrial stripe within normal limits. 2. Unremarkable bilateral ovaries. There are a few peripheral follicles which do not meet the criteria for polycystic ovarian syndrome. DATA REPOSITORY:
== END 2025-03-27 00:38 ==
LOC: DI 00:18
PROVIDERS: PCP Nurse Practitioner Family; Visit Provider Nurse Practitioner Women's Health
DX: N83.202 Unspecified ovarian cyst, left side (principal)
CPT/HCPCS: 76830; 76856

== ENCOUNTER 2025-05-26 02:03 | Outpatient (CLI) | payer MEDICAID, SELFPAY ==
--- NOTE | 2025-05-26 | DI.MAMMO_ITS ---
Exam(s) MAMMO SCREENING EXAM: MAMMO SCREENING CLINICAL HISTORY: SCREENING MAMMO Z12.31 TECHNIQUE: Bilateral full field digital CC and MLO mammographic images were obtained with 3D tomosynthesis and utilizing computer aided detection (CAD). COMPARISON: Comparison is made with prior examinations. FINDINGS: Masses/Architectural Distortion: No suspicious masses or areas of architectural distortion are present. Microcalcifications: No suspicious pleomorphic-type are seen. Skin Thickening/Nipple Retraction: None. IMPRESSION: 1. No significant interval change with no specific features of malignancy noted. 2. Unless there is more urgent need, screening mammography is recommended, as per [place] [employer] guidelines. BI-RADS Category 1 - Negative Breast Density - Category C - The breast are heterogeneously dense, which may obscure small masses. Breast density Category C or D implies that the patient has dense breast tissue. Dense breast tissue can make it harder to find cancer on a mammogram. Dense breast tissue is also associated with an increased risk of breast cancer. This information about the result of the mammogram report was provided to the patient to raise their awareness. Use this report when you speak with the patient about their risks for breast cancer, which includes their family history. At that time, you may recommend additional screening tests (Ultrasound or MRI) as these tests may add significant information. A negative radiographic report should not delay biopsy if a dominant or clinically suspicious mass is present. Up to ten percent of cancers are not identified on mammography. A negative report may reinforce clinical impression. Adenosis and dense breasts may obscure an underlying neoplasm. False positive reports average 6 to 10%. Patient will receive a letter notifying them of these results.
== END 2025-05-26 02:23 ==
LOC: DI 02:04
PROVIDERS: PCP Nurse Practitioner Family; Visit Provider Nurse Practitioner Family
DX: Z12.31 Encounter for screening mammogram for malignant neoplasm of breast (principal)
CPT/HCPCS: 77063; 77067